=== PATIENT | female | born 1935 | race Caucasian/White ===

== ENCOUNTER 2019-10-22 11:49 | Inpatient (IN) | payer MEDICARE ==
[2019-10-22] MEDS ORDERED: Morphine 4 MG/ML VIAL ONE (12:09)
[2019-10-22 12:31] LABS: #Eosinphils 0.1 thou/uL (0.0-0.7); #Lymphocytes 0.6 thou/uL (1.20-3.40); #Monocytes 0.6 thou/uL (0.11-0.59); #Neutrophils 3.6 thou/uL (1.40-6.50); %Basophils 0.8 % (0.0-1.0); %Eosinophils 1.5 % (0.0-10.0); %Monocytes 12.6 % (0.0-10.0); %Neutrophils 73.1 % (42.0-75.0); Hemoglobin 9.2 g/dL (12.0-16.0); Mean Corpuscular HGB CONC 32.7 g/dL (32.0-36.0); Mean Corpuscular Hemoglobin 30.1 pg (27.0-31.0); Mean Corpuscular Volume 92.1 fL (78.0-98.0); Mean Platelet Volume 9.2 fL (7.4-10.4); Platelet Count 151 thou/uL (130-400); RBC Distribution Width 13.6 % (11.5-14.5); Red Blood Cell (RBC) Count 3.05 mill/uL (4.20-5.40); White Blood Cell (WBC) Count 4.9 thou/uL (4.8-10.8)
[2019-10-22 12:49] LABS: ALT (SGPT) 19 U/L (8-55); AST (SGOT) 20 U/L (5-34); Albumin 3.3 g/dL (3.4-4.8); Alkaline Phosphatase 75 U/L (40-110); Anion Gap 14 mmol/L (10-20); BUN (Urea Nitrogen) 37 mg/dL (9.8-20.1); Bilirubin, Total 0.4 mg/dL (0.2-1.2); Calc. Creatinine Clearance 0 mL/min (70-130); Carbon Dioxide 20 mmol/L (23-31); Chloride 110 mmol/L (98-107); Estimated GFR-MDRD 23; Globulin 2.6 g/dL (2.4-3.5); Glucose 163 mg/dL (83-110); Potassium 4.9 mmol/L (3.5-5.1); Protein, Total 5.9 g/dL (6.0-8.3); Sodium 139 mmol/L (136-145)
--- NOTE | 2019-10-22 13:13 | RAD ---
PORTABLE CHEST 1 VIEW: DATE: 10/22/2019. TIME: 12:19 p.m. HISTORY: Lower extremity pain and edema and shortness of breath. FINDINGS/IMPRESSION: The heart size is enlarged and the aorta is tortuous. No lobar consolidation, pneumothoraces, adalid pulmonary edema, or large effusions are seen. POS: OFF
[2019-10-22] MEDS ORDERED: Aspirin Chewable 81 MG TAB ONE (14:58)
[2019-10-22] MEDS ORDERED: Furosemide 40 MG/4 ML VIAL ONE (16:01)
[2019-10-22] MEDS ORDERED: Acetaminophen 650 MG Suppository PR PRN (17:06)
[2019-10-22] MEDS ORDERED: Calcium Carbonate 500 MG ChewTAB PO PRN (17:06)
--- NOTE | 2019-10-22 17:10 | RAD ---
XR Hip Rt 2-3 View INDICATION: Right hip pain COMPARISON: None FINDINGS: Bones: Bone details limited by the patient's body habitus. No definite acute fracture or subluxation is demonstrated. Hip joint: There is mild to moderate right hip osteoarthrosis. SI joints and symphysis pubis: Radiographically normal. Intrapelvic contents: Visualized bowel gas pattern is within normal limits. Surrounding soft tissues: Radiographically normal. IMPRESSION: 1. Limited exam. No definite acute fracture or subluxation.
[2019-10-22] MEDS ORDERED: Furosemide 100 MG in Sodium Chloride 0.9% 90 ML IVPB SCH (17:16)
[2019-10-22] MEDS ORDERED: Dextrose 50% Abboject 50 ML SYRINGE SLOW IVP PRN (17:16)
[2019-10-22] MEDS ORDERED: Dextrose 5% in Water 1,000 ML IV PRN (17:16)
[2019-10-22] MEDS ORDERED: HumaLOG 300 UNITS/3 ML VIAL SC PRN ×2 (17:16)
[2019-10-22 17:30] LABS: Troponin I 0.011 ng/mL (< 0.028)
--- NOTE | 2019-10-22 17:44 | PDOC.HHP ---
Hospitalist HPI - History of Present Illness Right hip pain History of Present Illness: The patient is a 84/F with PMH significant for HTN, DMII, HLD, CKD IV, morbid obesity presents for above complaint. The patient is [place], so the HPI was gathered primarily from the patient's son, Mehdi Carr. Reports that the patient has complaining of right hip pain for the past month, describes as aching, muscular pain, constant, reproducible with touch. Denies any trauma or fall. For this reason, she has been less mobile, spending majority of her time in a recliner. Also reports developing swelling to bilateral lower extremities for the past month. Reports significant weeping to bilateral extremities and development of erythematous lesions to both shins, denies pain, fever or chills. She has no other complaints at this time. The patient called EMS for her right hip pain. ED Course: EMS found patient with BP 236/106. Administered Nitro spray x 2 Nitro SL x 1 In the ER CXR no acute cardiopulmonary process BNP 123 Trop negative ASA 324 Morphine 4mg Lasix 40mg IVP Hospitalist ROS - Review of Systems Constitutional: denies: fever, chills, sweats, weakness, malaise, other ENT: denies: ear pain, ear discharge, nose pain, nose discharge, nose congestion , mouth pain, mouth swelling, throat pain, throat swelling, other Respiratory: denies: cough, dry, shortness of breath, hemoptysis, SOB with excertion, pleuritic pain, sputum, wheezing, other Cardiovascular: reports: edema. denies: chest pain, palpitations, paroxysmal noc. dyspnea Gastrointestinal: denies: nausea, vomiting, abdominal pain, diarrhea, constipation, melena, hematochezia, other Genitourinary: denies: dysuria, frequency, incontinence, hematuria, retention, other Skin: reports: rash, lesions (BLE) Hospitalist History - Past Medical History Source: patient, family Cardiac: reports: HTN, Hyperlipidemia Pulmonary: reports: no pertinent history HAND STRAIGHTENER: reports: no pertinent history Psych: reports: Depression Musculoskeletal: reports: Osteoarthritis Infectious Disease: reports: no pertinent history ENT: reports: no pertinent history Renal/: reports: no pertinent history Endocrine: reports: Diabetes - Past Surgical History Past Surgical History: reports: Cholecystectomy, Hysterectomy - Family History Family History: reports: cancer - Social History Smoking Status: Never smoker Alcohol: reports: None Drugs: reports: none Living Situation: With Family Occupation: retired, lives with son in trailer Activity level: uses cane/walker - Exam General Appearance: NAD, awake alert ENT - other findings: [place] Neck: no JVD, no lymphadenopathy Heart: diminshed peripheral pulses Heart - other findings: distant heart sounds Respiratory: no wheezes, no rales, no ronchi, no tachypnea Respiratory - other findings: diminished Gastrointestinal: soft, non-tender, non-distended, normal bowel sounds, no guarding, no rigidity Extremities - other findings: 4+ BLE; Right leg > left leg Skin - other findings: 8cm x 12 cm raised, erythematous scaling lesion, non tender, no fluctuance Psychiatric: normal affect, A&O x 3 Hospitalist Results - Labs Result Diagrams: 10/22/19 12:19 10/22/19 12:02 Lab results: WBC 4.9 thou/uL (4.8-10.8) 10/22/19 12:19 Hgb 9.2 g/dL (12.0-16.0) L 10/22/19 12:19 Hct 28.0 % (36.0-47.0) L 10/22/19 12:19 MCV 92.1 fL (78.0-98.0) 10/22/19 12:19 Plt Count 151 thou/uL (130-400) 10/22/19 12:19 Neutrophils % 73.1 % (42.0-75.0) 10/22/19 12:19 Sodium 139 mmol/L (136-145) 10/22/19 12:02 Potassium 4.9 mmol/L (3.5-5.1) 10/22/19 12:02 Chloride 110 mmol/L (98-107) H 10/22/19 12:02 Carbon Dioxide 20 mmol/L (23-31) L 10/22/19 12:02 BUN 37 mg/dL (9.8-20.1) H 10/22/19 12:02 Creatinine 2.07 mg/dL (0.6-1.1) H 10/22/19 12:02 Glucose 163 mg/dL (83-110) H 10/22/19 12:02 Calcium 8.0 mg/dL (7.8-10.44) 10/22/19 12:02 Total Bilirubin 0.4 mg/dL (0.2-1.2) 10/22/19 12:02 AST 20 U/L (5-34) 10/22/19 12:02 ALT 19 U/L (8-55) 10/22/19 12:02 Alkaline Phosphatase 75 U/L (40-110) 10/22/19 12:02 Troponin I 0.011 ng/mL (< 0.028) 10/22/19 16:56 B-Natriuretic Peptide 123.0 pg/mL (0-100) H 10/22/19 12:02 Serum Total Protein 5.9 g/dL (6.0-8.3) L 10/22/19 12:02 Albumin 3.3 g/dL (3.4-4.8) L 10/22/19 12:02 Laboratory Tests 10/22/19 10/22/19 10/22/19 12:02 12:02 12:04 Magnesium 1.7 Troponin I 0.011 B-Natriuretic Peptide 123.0 H TSH 3rd Generation 10/22/19 10/22/19 16:56 16:56 Magnesium Troponin I 0.011 B-Natriuretic Peptide TSH 3rd Generation 2.6814 - Radiology Interpretation Chest x-ray Status: report reviewed by nv Hospitalist H&P A/P - Plan Plan: Impression Acute CHF exacerbation, suspected diastolic dysfunction Bilateral LE edema Right Hip Pain Bilateral LE wounds, likely secondary to venous stasis HTN DMII HLD Morbid obesity CKD IV Plan: monitoring coordinator Delta trop Lasix drip Echocardiogram Consult cardiology, cardiac rehab, wound care FR 1500mls, Strict I&Os, daily weights, elevate feet Venous US Right hip Xray Sliding scale, AC/HS DVT/GI prophalaxis renal dose repeat labs in am Restart home meds when reconciled, hold terazosin, HCTZ and amlodipine. Full code Mehdi KAUFFMAN,
[2019-10-22] MEDS ORDERED: Enoxaparin Sodium 30 MG/0.3 ML SYRINGE SC SCH (21:00)
[2019-10-22] MEDS ORDERED: Lisinopril 10 MG TAB PO SCH (21:00)
[2019-10-22] MEDS ORDERED: Atenolol 50 MG TAB PO SCH (21:00)
[2019-10-22] MEDS ORDERED: Aspirin 81 mg Enteric Coated Tablet PO SCH (21:00)
[2019-10-22] MEDS: Heparin 5,000 UNITS/ML VIAL SC SCH (21:04)
[2019-10-22] MEDS: Famotidine 20 MG TAB PO SCH (21:05)
[2019-10-22] MEDS: Rosuvastatin 20 MG TAB PO SCH (21:05)
[2019-10-22] MEDS: Lisinopril 5 MG TAB PO SCH (21:05)
--- NOTE | 2019-10-22 22:35 | PRG ---
DATE OF SERVICE: Patient was seen and examined. Patient is an 84-year-old female with hypertension; diabetes mellitus, type 2; hyperlipidemia; and CKD, presented to the emergency room with right hip pain. She also complains of shortness of breath that is progressively getting worse over the last 1 to 2 weeks. There is significant lower extremity edema that has worsened recently. She also had some weeping from bilateral lower extremity lesions. No fever or chills reported. Her blood pressure by EMS was 236/106. Her workup in the emergency room was consistent with congestive heart failure exacerbation. Vital signs were reviewed. She received IV diuretics in the emergency room. On examination, patient has significant bilateral lower extremity edema. There are scattered rhonchi with diminished air entry at bilateral bases. S1, S2 were present. Labs were reviewed. Troponins were negative. BNP was 123. TSH was 2.6. I reviewed the EKG and chest x-ray. Patient will be monitored on the telemetry unit. We will start her on gentle IV diuretics. Due to significant CKD, we will start her on Lasix drip. DVT will be ruled out. Wound Care will be consulted. Right hip x-ray has been negative. We will recheck electrolytes in the a.m. We will keep her on fluid restriction. I agree with the note by nurse practitioner, Aaron Silverio. I agree with assessment and plan as outlined by the nurse practitioner. Cardiology will be consulted. Echocardiogram has been ordered. Job ID: [id number]
--- NOTE | 2019-10-22 23:18 | ULT ---
BILATERAL LOWER EXTREMITY VENOUS DOPPLER EVALUATION PROVIDED CLINICAL HISTORY: Bilateral lower extremity edema with bilateral lower extremity pain, right greater than left. There i s a rash on the lateral aspect of the right calf. TECHNIQUE: Grayscale, color doppler and spectral doppler images were obtained of the common femoral , femoral, profunda femoral, popliteal and posterior tibial veins of both lower extremities. Image detail is heavily limited by the patient's body habitus. FINDINGS: There is normal compression, flow and augmentation seen with the deep venous structures within both l ower extremities. IMPRESSION: No sonographic evidence for lower extremity deep venous thrombosis within the limitations of this exa m.
[2019-10-23 05:03] LABS: #Eosinphils 0.1 thou/uL (0.0-0.7); #Lymphocytes 0.6 thou/uL (1.20-3.40); %Basophils 0.4 % (0.0-1.0); %Eosinophils 0.9 % (0.0-10.0); %Lymphocytes 8.4 % (21.0-51.0); %Monocytes 14.8 % (0.0-10.0); %Neutrophils 75.5 % (42.0-75.0); Mean Corpuscular Hemoglobin 30.2 pg (27.0-31.0); Mean Corpuscular Volume 91.6 fL (78.0-98.0); Mean Platelet Volume 8.6 fL (7.4-10.4); Platelet Count 141 thou/uL (130-400); RBC Distribution Width 13.6 % (11.5-14.5); Red Blood Cell (RBC) Count 3.31 mill/uL (4.20-5.40); White Blood Cell (WBC) Count 6.7 thou/uL (4.8-10.8)
[2019-10-23 05:26] LABS: Anion Gap 14 mmol/L (10-20); BUN (Urea Nitrogen) 36 mg/dL (9.8-20.1); Calc. Creatinine Clearance 39 mL/min (70-130); Calcium 8.7 mg/dL (7.8-10.44); Carbon Dioxide 21 mmol/L (23-31); Chloride 108 mmol/L (98-107); Estimated GFR-MDRD 25; Glucose 118 mg/dL (83-110); Magnesium 1.9 mg/dL (1.6-2.6); Potassium 4.8 mmol/L (3.5-5.1); Sodium 138 mmol/L (136-145)
[2019-10-23] MEDS ORDERED: Carvedilol 6.25 MG TAB PO SCH (08:00)
[2019-10-23] MEDS: glipiZIDE 5 MG TAB PO SCH (08:43)
[2019-10-23] MEDS: Citalopram 20 MG TAB PO SCH (08:44)
[2019-10-23] MEDS: Aspirin 81 mg Enteric Coated Tablet PO SCH (08:44)
[2019-10-23] MEDS: Lisinopril 5 MG TAB PO SCH (08:44)
[2019-10-23] MEDS: Heparin 5,000 UNITS/ML VIAL SC SCH ×2 (08:44→19:24)
[2019-10-23] MEDS ORDERED: Lisinopril 10 MG TAB PO SCH (12:30)
--- NOTE | 2019-10-23 15:23 | PDOC.HOSPP ---
- Subjective Encounter Date: 10/23/19 Encounter Time: 08:30 Subjective: Patient seen and examined for CHF. SOB slightly better. No CP. No new complaints. No overnight events - Objective Vital Signs & Weight: Vital Signs (12 hours) Temp Pulse Resp BP Pulse Ox 10/23/19 13:01 98.9 F 75 18 194/80 H 96 10/23/19 10:15 149/70 H 10/23/19 08:20 98.8 F 74 18 182/76 H 96 10/23/19 08:00 96 Weight Admit Weight 249 lb Weight 242 lb 12.8 oz I&O: 10/22/19 10/23/19 10/24/19 06:59 06:59 06:59 Output Total 300 Balance -300 Result Diagrams: 10/23/19 04:29 10/23/19 04:29 Additional Labs: Accuchecks 10/23/19 10/22/19 06:35 21:26 POC Glucose 126 H 149 H Radiology Reviewed by me: Yes (CXR - no infiltrate) EKG Reviewed by me: Yes (Tele Sr) Hospitalist ROS - Review of Systems Cardiovascular: denies: chest pain, palpitations, orthopnea, paroxysmal noc. dyspnea, edema, light headedness, other Gastrointestinal: denies: nausea, vomiting, abdominal pain, diarrhea, constipation, melena, hematochezia, other - Medication Medications: Active Medications Generic Name Dose Route Start Last Admin Trade Name Freq PRN Reason Stop Dose Admin Aspirin 81 mg 10/23/19 09:00 10/23/19 08:44 Ecotrin PO 81 mg DAILY JUAN ANTONIO Administration Citalopram Hydrobromide 40 mg 10/23/19 09:00 10/23/19 08:44 Celexa PO 40 mg DAILY JUAN ANTONIO Administration Famotidine 20 mg 10/22/19 21:00 10/22/19 21:05 Pepcid PO 20 mg QPM JUAN ANTONIO Administration Glipizide 5 mg 10/23/19 07:30 10/23/19 08:43 Glucotrol PO 5 mg DAILY-AC JUAN ANTONIO Administration Heparin Sodium (Porcine) 5,000 units 10/22/19 21:00 10/23/19 08:44 Heparin SC 5,000 units BID JUAN ANTONIO Administration Furosemide 100 mg/ Sodium 100 mls @ 3 mls/hr 10/22/19 17:16 10/23/19 00:05 Chloride IVPB 100 mls INF JUAN ANTONIO Administration 3 MG/HR Rosuvastatin Calcium 20 mg 10/22/19 21:00 10/22/19 21:05 Crestor PO 20 mg HS JUAN ANTONIO Administration - Exam General Appearance: NAD Neck: supple, no JVD Heart: RRR, no gallops, no rubs, normal peripheral pulses Respiratory: no wheezes, normal chest expansion, rales (at bases), rhonchi Gastrointestinal: non-tender, non-distended, no guarding, no rigidity Extremities: 2+ LE edema Neurological: no new deficit Psychiatric: normal affect, A&O x 3 Hosp A/P - Plan DVT proph w/heparin Acute diastolic CHF exacerbation Bilateral LE edema/Venous stasis Right Hip Pain - no fracture Bilateral LE wounds, likely secondary to venous stasis HTN - uncontrolled DM2 HLD Morbid obesity BMI 40.4 CKD IV Plan: Cont Lasix drip Increase Coreg to TID Increase Lisinopril 10mg BID Echocardiogram reviewed Doppler negative Cont fluid restriction Sliding scale, AC/HS AM labs
[2019-10-23] MEDS: Carvedilol 6.25 MG TAB PO SCH ×2 (15:39→19:23)
[2019-10-23] MEDS ORDERED: cloNIDine 0.1 MG TAB PO PRN (15:48)
--- NOTE | 2019-10-23 15:49 | CON ---
DATE OF CONSULTATION: 10/23/2019 REASON FOR CONSULTATION: Hypertension and history of heart failure. HISTORY OF PRESENT ILLNESS: Ms. Carr is a pleasant 84-year-old white female, who comes to the hospital for hip pain. She was at home, having a lot of hip pain. She noticed swelling on bilateral lower extremities, slowly getting worse in the past month with weeping of the skin. She was brought in for worsening pain and edema. She was found to be, what appears to be, heart failure and blood pressure was 236/106. They gave her one sublingual nitroglycerin and brought her in. Currently, her blood pressure is much better in the 140s. She was started on the Lasix drip for possible heart failure. Cardiology is being consulted for further evaluation and care. Ms. Carr tells me she has never had any problems with her heart. She has never seen a sumatra opener before. PAST MEDICAL HISTORY: 1. Hypertension. 2. Hyperlipidemia. 3. Depression. 4. Osteoarthritis. 5. Diabetes. PAST SURGICAL HISTORY: 1. Cholecystectomy. 2. Hysterectomy. FAMILY HISTORY: No early coronary artery disease. SOCIAL HISTORY: No alcohol, tobacco, or drugs. REVIEW OF SYSTEMS: A 12-point review of systems was done and was all negative unless stated in the history of present illness. OUTPATIENT MEDICATIONS: 1. Celexa. 2. Atenolol 100 mg a day. 3. Amlodipine 5 mg a day. 4. Glipizide 10 mg b.i.d. 5. Terazosin 10 mg q.a.m. 6. Rosuvastatin 20 mg q.a.m. 7. Lisinopril/hydrochlorothiazide 20/12.5 mg b.i.d. ALLERGIES: NO KNOWN DRUG ALLERGIES. PHYSICAL EXAMINATION: VITAL SIGNS: Temperature 98.9, pulse 75, respiratory rate 18, saturation 96% on room air, and blood pressure 194/80, but has been as low as 149/70. GENERAL: Awake, alert, oriented to person, has difficulty with place and cannot do time. In no distress. HEENT: Normocephalic, atraumatic. NECK: Supple. LUNGS: Clear. CARDIOVASCULAR: S1 and S2. There is a grade 3/6 systolic murmur at the right upper sternal border. Outflow tract murmur. ABDOMEN: Soft. Positive bowel sounds. EXTREMITIES: 2+ edema. There is erythema on the shins, but more like scabs rather than cellulitis. LABORATORY DATA: Laboratory work was reviewed. White count of 6.7, hemoglobin 10, hematocrit of 30, platelet count of 141. Chemistry with a BUN of 36, creatinine 1.94, this is actually down from 2.07, GFR of 25. Troponin was negative. TSH was normal. Lower extremity venous ultrasound showed no evidence of DVTs. Chest x-ray, enlarged heart with torturous aorta, but no evidence of CHF. Echocardiogram was reviewed. Normal LV function with diastolic heart failure, grade 1/3. Mild AI. ASSESSMENT AND PLAN: 1. Acute on chronic diastolic heart failure. 2. Bilateral lower extremity edema, most likely some level of RV dysfunction, likely has sleep apnea given her weight. 3. Hypertensive urgency, likely most of her blood pressure issues are related to her pain as when her pain level goes up, her blood pressure goes up. I agree with continuing home regimen and up titrating as needed. PLAN: 1. Up titrate home medications as needed. 2. We will switch Lasix drip to more twice daily dosing at 20 mg IV twice a day. I do not think she needs too aggressive diuresis at this time. 3. Continue to try to control blood pressure with p.r.n.'s if needed. Thank you for letting us to participate in the care of your patient. We will follow. Job ID: [id number]
[2019-10-23] MEDS ORDERED: Terazosin HCl 5 MG CAP PO SCH (16:00)
[2019-10-23] MEDS: Famotidine 20 MG TAB PO SCH (19:23)
[2019-10-23] MEDS: Rosuvastatin 20 MG TAB PO SCH (19:23)
[2019-10-23] MEDS: Lisinopril 10 MG TAB PO SCH (19:24)
[2019-10-24 04:54] LABS: Anion Gap 13 mmol/L (10-20); BUN (Urea Nitrogen) 40 mg/dL (9.8-20.1); Calc. Creatinine Clearance 35 mL/min (70-130); Calcium 8.8 mg/dL (7.8-10.44); Carbon Dioxide 20 mmol/L (23-31); Chloride 108 mmol/L (98-107); Estimated GFR-MDRD 23; Glucose 126 mg/dL (83-110); Potassium 4.3 mmol/L (3.5-5.1); Sodium 137 mmol/L (136-145)
[2019-10-24] MEDS: Furosemide 20 MG/2 ML VIAL SLOW IVP SCH ×2 (05:16→14:27)
[2019-10-24] MEDS: Carvedilol 6.25 MG TAB PO SCH ×3 (08:26→20:31)
[2019-10-24] MEDS: glipiZIDE 5 MG TAB PO SCH (08:26)
[2019-10-24] MEDS: Aspirin 81 mg Enteric Coated Tablet PO SCH (08:26)
[2019-10-24] MEDS: Lisinopril 10 MG TAB PO SCH ×2 (08:27→20:31)
[2019-10-24] MEDS: Citalopram 20 MG TAB PO SCH (08:27)
[2019-10-24] MEDS: hydrALAZINE 25 MG TAB PO SCH ×3 (08:28→20:31)
[2019-10-24] MEDS: Heparin 5,000 UNITS/ML VIAL SC SCH ×3 (08:28→20:33)
[2019-10-24] MEDS ORDERED: NIFEdipine XL 30 MG TAB PO SCH (09:00)
--- NOTE | 2019-10-24 11:45 | PDOC.HOSPP ---
- Subjective Encounter Date: 10/24/19 Encounter Time: 07:30 Subjective: no sob or chest pain, feels better. Has not ambulated. - Objective Vital Signs & Weight: Vital Signs (12 hours) Temp Pulse Resp BP BP Pulse Ox 10/24/19 08:28 78 10/24/19 08:27 78 149/68 H 10/24/19 08:26 149/68 H 10/24/19 07:42 99.9 F H 78 16 149/68 H 94 L 10/24/19 05:17 71 139/62 10/24/19 04:29 193/77 H 10/24/19 03:12 98.8 F 80 18 195/81 H 94 L Weight Admit Weight 249 lb Weight 245 lb 8 oz I&O: 10/23/19 10/24/19 10/25/19 06:59 06:59 06:59 Intake Total 1107 Output Total 2550 Balance -1443 Result Diagrams: 10/23/19 04:29 10/24/19 03:53 Additional Labs: Accuchecks 10/24/19 10/24/19 10/23/19 10:44 05:35 20:11 POC Glucose 165 H 138 H 137 H 10/23/19 10/23/19 16:54 10:35 POC Glucose 138 H 172 H Hospitalist ROS - Medication Medications: Active Medications Generic Name Dose Route Start Last Admin Trade Name Freq PRN Reason Stop Dose Admin Aspirin 81 mg 10/23/19 09:00 10/24/19 08:26 Ecotrin PO 81 mg DAILY JUAN ANTONIO Administration Carvedilol 12.5 mg 10/23/19 15:00 10/24/19 08:26 Coreg PO 12.5 mg TID JUAN ANTONIO Administration Citalopram Hydrobromide 40 mg 10/23/19 09:00 10/24/19 08:27 Celexa PO 40 mg DAILY JUAN ANTONIO Administration Clonidine 0.1 mg 10/23/19 15:48 10/24/19 04:29 Catapres PO 10/24/19 15:49 0.1 mg Q4H PRN Administration SBP Greater Than 180 Famotidine 20 mg 10/22/19 21:00 10/23/19 19:23 Pepcid PO 20 mg QPM JUAN ANTONIO Administration Furosemide 20 mg 10/24/19 06:00 10/24/19 05:16 Lasix SLOW IVP 20 mg 0600,1400 JUAN ANTONIO Administration Glipizide 5 mg 10/23/19 07:30 10/24/19 08:26 Glucotrol PO 5 mg DAILY-AC JUAN ANTONIO Administration Heparin Sodium (Porcine) 5,000 units 10/23/19 21:00 10/24/19 08:28 Heparin SC 5,000 units TID JUAN ANTONIO Administration Hydralazine HCl 25 mg 10/24/19 09:00 10/24/19 08:28 Apresoline PO 25 mg TID JUAN ANTONIO Administration Lisinopril 10 mg 10/23/19 21:00 10/24/19 08:27 Zestril PO 10 mg BID JUAN ANTONIO Administration Nifedipine 30 mg 10/24/19 09:00 10/24/19 08:27 Procardia Xl PO 30 mg DAILY JUAN ANTONIO Administration Rosuvastatin Calcium 20 mg 10/22/19 21:00 10/23/19 19:23 Crestor PO 20 mg HS JUAN ANTONIO Administration - Exam General Appearance: awake alert Eye: PERRL, anicteric sclera ENT: no oropharyngeal lesions, moist mucosa Neck: supple, no JVD Heart: RRR, no murmur Respiratory: no wheezes, no rales Gastrointestinal: soft, non-tender, non-distended, normal bowel sounds Extremities: no cyanosis, no edema Neurological: cranial nerve grossly intact, no focal deficits Psychiatric: normal affect, A&O x 3 Hosp A/P (1) Acute exacerbation of CHF (congestive heart failure) Code(s): I50.9 - HEART FAILURE, UNSPECIFIED Status: Acute Qualifiers: Heart failure type: diastolic Qualified Code(s): I50.33 - Acute on chronic diastolic (congestive) heart failure (2) Hypertension, uncontrolled Code(s): I10 - ESSENTIAL (PRIMARY) HYPERTENSION Status: Acute (3) PARESH (acute kidney injury) Code(s): N17.9 - ACUTE KIDNEY FAILURE, UNSPECIFIED Status: Acute (4) DM type 2 (diabetes mellitus, type 2) Status: Chronic Qualifiers: Diabetes mellitus moth exterminator insulin use: without moth exterminator use Diabetes mellitus complication status: with kidney complications Diabetes mellitus complication detail: with chronic kidney disease Chronic kidney disease stage : stage 2 (mild) Qualified Code(s): E11.22 - Type 2 diabetes mellitus with diabetic chronic kidney disease; N18.2 - Chronic kidney disease, stage 2 (mild) (5) Obesity Code(s): E66.9 - OBESITY, UNSPECIFIED Status: Chronic Qualifiers: Obesity classification: adult class 3 (BMI >= 40) Body mass index: BMI 40.0 -44.9 (6) Dyslipidemia Code(s): E78.5 - HYPERLIPIDEMIA, UNSPECIFIED Status: Chronic (7) Chronic anemia Code(s): D64.9 - ANEMIA, UNSPECIFIED Status: Chronic (8) Osteoarthritis Code(s): M19.90 - UNSPECIFIED OSTEOARTHRITIS, UNSPECIFIED SITE Status: Chronic Qualifiers: Osteoarthritis location: multiple joints Osteoarthritis type: primary Qualified Code(s): M15.0 - Primary generalized (osteo)arthritis - Plan is on lasix 20mg at 6am and 2 pm add procardia xl and hydralazine tid low dose to coreg tid, lisinopril for htn which is slowly getting controlled. continue asp, crestor, glipizide and crestor PT to mobilize as tolerated has underlying dementia as well. B/l leg wounds/blisters are better with decreasing edema. dc plan in 36hrs, will likely need swing bed, she lives with son in a trailer
[2019-10-24] MEDS: cefTRIAXone\\ROCEPHIN 1 GM in Sodium Chloride 0.9% 100 ML IVPB SCH (14:24)
--- NOTE | 2019-10-24 16:22 | PDOC.CPN ---
- Subjective Date: 10/24/19 Time: 12:00 Interval history: She is doing better. Swelling improving. - Review of Systems General: denies: fever/chills, weight/appetite/sleep changes, night sweats, fatigue Respiratory: denies: cough, congestion, shortness of breath, exercise intolerance Cardiovascular: reports: edema. denies: chest pain, palpitation, paroxysmal nocturnal dyspnea, orthopnea Gastrointestinal: denies: nausea, vomiting, diarrhea, constipation, abd pain, GI bleeding Musculoskeletal: denies: pain, tenderness, stiffness, swelling, arthritis/ arthralgias Neurological: denies: numbness, syncope, seizure, weakness - Objective Allergies/Adverse Reactions: Allergies Allergy/AdvReac Type Severity Reaction Status Date / Time No Known Allergies Allergy Unverified 10/22/19 17:12 Visit Medications: Current Medications Acetaminophen (Tylenol) 650 mg PO Q4H PRN PRN Reason: Headache/Fever/Mild Pain (1-3) Acetaminophen (Tylenol) 650 mg ID Q4H PRN PRN Reason: Headache/Fever/Mild Pain (1-3) Aspirin (Ecotrin) 81 mg PO DAILY [facility] Last Admin: 10/24/19 08:26 Dose: 81 mg Calcium Carbonate (Tums) 1,000 mg PO Q4H PRN PRN Reason: Heartburn or Indigestion Carvedilol (Coreg) 12.5 mg PO TID [facility] Last Admin: 10/24/19 14:26 Dose: 12.5 mg Citalopram Hydrobromide (Celexa) 40 mg PO DAILY [facility] Last Admin: 10/24/19 08:27 Dose: 40 mg Dextrose/Water (Dextrose 50%) 25 gm SLOW IVP PRN PRN PRN Reason: Hypoglycemia Famotidine (Pepcid) 20 mg PO QPM [facility] Last Admin: 10/23/19 19:23 Dose: 20 mg Furosemide (Lasix) 20 mg SLOW IVP 0600,1400 [facility] Last Admin: 10/24/19 14:27 Dose: 20 mg Glipizide (Glucotrol) 5 mg PO DAILY-AC [facility] Last Admin: 10/24/19 08:26 Dose: 5 mg Glucagon (Glucagon) 1 mg IM PRN PRN PRN Reason: Hypoglycemia Heparin Sodium (Porcine) (Heparin) 5,000 units SC TID [facility] Last Admin: 10/24/19 14:25 Dose: 5,000 units Hydralazine HCl (Apresoline) 25 mg PO TID [facility] Last Admin: 10/24/19 14:26 Dose: 25 mg Dextrose/Water (D5w) 1,000 mls @ 0 mls/hr IV .Q0M PRN PRN Reason: Hypoglycemia Ceftriaxone Sodium 1 gm/ (Sodium Chloride) 100 mls @ 200 mls/hr IVPB Q24HR [facility] Last Admin: 10/24/19 14:24 Dose: 100 mls Insulin Human Lispro (Humalog) 0 units SC .MILD SLIDING SCALE PRN PRN Reason: Mild Correctional Scale Insulin Human Lispro (Humalog) 0 units SC .BEDTIME SLIDING SC PRN PRN Reason: Bedtime Correctional Scale Lisinopril (Zestril) 10 mg PO BID [facility] Last Admin: 10/24/19 08:27 Dose: 10 mg Nifedipine (Procardia Xl) 30 mg PO DAILY [facility] Last Admin: 10/24/19 08:27 Dose: 30 mg Rosuvastatin Calcium (Crestor) 20 mg PO HS [facility] Last Admin: 10/23/19 19:23 Dose: 20 mg Sodium Chloride (Flush - Normal Saline) 10 ml IVF Q12HR [facility] Sodium Chloride (Flush - Normal Saline) 10 ml IVF PRN PRN PRN Reason: Saline Flush Vital Signs & Weight: Vital Signs Temp Pulse Resp BP BP BP Pulse Ox 10/24/19 14:26 73 149/68 H 10/24/19 13:20 149/67 H 10/24/19 12:00 98.7 F 73 16 177/76 H 96 10/24/19 08:28 78 10/24/19 08:27 78 149/68 H 10/24/19 08:26 149/68 H 10/24/19 07:42 99.9 F H 78 16 149/68 H 94 L 10/24/19 05:17 71 139/62 10/24/19 04:29 193/77 H Admit Weight 249 lb Weight 245 lb 8 oz - Physical Exam General: appears well HEENT: mucus membranes moist Neck: supple neck Cardiac: regular rate and rhythm Lungs: normal breath sounds Neuro: grossly intact Abdomen: active bowel sounds Extremities: 1+ LE edema Skin: clear Musculoskeletal: no pain - Labs Result Diagrams: 10/23/19 04:29 10/24/19 03:53 Troponin/CKMB Troponin I 0.011 ng/mL (< 0.028) 10/22/19 16:56 - Telemetry Sinus rhythms and dysrhythmias: sinus rhythm - Assessment/Plan Assessment/Plan: 1. Acute on chronic diastolic CHF 2. Bilateral LE edema with skin lacerations 3. HTN 4. Severe hip pain. PLAN: - Continue gentle diuresis. - Creatinine stable at this time. If it bumps tomorrow would stop diuresis. - Will increase nifedipine to 60 mg daily for better BP control.
[2019-10-24 16:35] LABS: Bacteria/HPF 4+ HPF (None Seen); Bilirubin Negative (Negative); Blood, Urine 1+ (Negative); Clarity Turbid (Clear); Glucose, Urine (Dipstick) Normal (Negative); Leukocyte 500 Leu/uL (Negative); Nitrite Negative (Negative); Protein, Urine (Dipstick) 50 mg/dL (Neg-Trace); Squamous Epithelial 0-3 HPF (0-3); Urobilinogen Normal mg/dL (Less than 2); WBC/HPF Greater than 50 HPF (0-3)
[2019-10-24 16:40] LABS: Urine Culture Reflex Yes Yes
[2019-10-24] MEDS ORDERED: ALPRAZolam 1 MG TAB PO SCH (17:45)
[2019-10-24] MEDS: Famotidine 20 MG TAB PO SCH (20:31)
[2019-10-24] MEDS: Rosuvastatin 20 MG TAB PO SCH (20:32)
[2019-10-24] MEDS ORDERED: Terazosin HCl 5 MG CAP PO SCH (21:00)
[2019-10-25] MEDS ORDERED: hydrALAZINE 20 MG/ML VIAL SLOW IVP PRN (00:32)
[2019-10-25 04:57] LABS: Anion Gap 16 mmol/L (10-20); BUN (Urea Nitrogen) 45 mg/dL (9.8-20.1); Calc. Creatinine Clearance 31 mL/min (70-130); Calcium 8.3 mg/dL (7.8-10.44); Carbon Dioxide 18 mmol/L (23-31); Chloride 104 mmol/L (98-107); Estimated GFR-MDRD 19; Glucose 122 mg/dL (83-110); Potassium 3.7 mmol/L (3.5-5.1); Sodium 134 mmol/L (136-145)
[2019-10-25] MEDS: Furosemide 20 MG/2 ML VIAL SLOW IVP SCH (05:26)
[2019-10-25] MEDS: Albumin 25% 25 GM/100 ML BOT IVPB SCH ×3 (08:40→21:22)
[2019-10-25] MEDS: Heparin 5,000 UNITS/ML VIAL SC SCH ×3 (08:40→20:03)
--- NOTE | 2019-10-25 11:16 | PDOC.HOSPP ---
- Subjective Encounter Date: 10/25/19 Encounter Time: 08:00 Subjective: still waking up, she got xanax yesterday and has been oversleeping now. Xanax helped her sleep and stay calm overnight. Son at bedside. - Objective Vital Signs & Weight: Vital Signs (12 hours) Temp Pulse Resp BP Pulse Ox 10/25/19 07:32 101.5 F H 82 20 155/70 H 92 L 10/25/19 05:24 99 F 82 16 146/66 H 96 10/25/19 01:47 89 146/65 H 10/25/19 00:45 88 Weight Admit Weight 249 lb Weight 244 lb I&O: 10/24/19 10/25/19 10/26/19 06:59 06:59 06:59 Intake Total 1107 1360 Output Total 2550 3200 Balance -1443 -1840 Result Diagrams: 10/23/19 04:29 10/25/19 04:03 Additional Labs: Accuchecks 10/25/19 10/24/19 10/24/19 06:26 20:23 16:31 POC Glucose 128 H 144 H 156 H 10/24/19 10:44 POC Glucose 165 H Hospitalist ROS - Medication Medications: Active Medications Generic Name Dose Route Start Last Admin Trade Name Freq PRN Reason Stop Dose Admin Acetaminophen 650 mg 10/22/19 17:06 10/25/19 08:51 Tylenol DE 650 mg Q4H PRN Administration Headache/Fever/Mild Pain (1-3) Albumin Human 25 gm 10/25/19 09:00 10/25/19 08:40 Albumin 25% IVPB 10/26/19 03:01 25 gm Q6H JUAN ANTONIO Administration Aspirin 81 mg 10/23/19 09:00 10/24/19 08:26 Ecotrin PO 81 mg DAILY JUAN ANTONIO Administration Carvedilol 12.5 mg 10/23/19 15:00 10/24/19 20:31 Coreg PO 12.5 mg TID JUAN ANTONIO Administration Citalopram Hydrobromide 40 mg 10/23/19 09:00 10/24/19 08:27 Celexa PO 40 mg DAILY JUAN ANTONIO Administration Famotidine 20 mg 10/22/19 21:00 10/24/19 20:31 Pepcid PO 20 mg QPM JUAN ANTONIO Administration Furosemide 20 mg 10/24/19 06:00 10/25/19 05:26 Lasix SLOW IVP 20 mg 0600,1400 JUAN ANTONIO Administration Glipizide 5 mg 10/23/19 07:30 10/24/19 08:26 Glucotrol PO 5 mg DAILY-AC JUAN ANTONIO Administration Heparin Sodium (Porcine) 5,000 units 10/23/19 21:00 10/25/19 08:40 Heparin SC 5,000 units TID JUAN ANTONIO Administration Hydralazine HCl 25 mg 10/24/19 09:00 10/24/19 20:31 Apresoline PO 25 mg TID JUAN ANTONIO Administration Hydralazine HCl 10 mg 10/25/19 00:32 10/25/19 00:45 Apresoline SLOW IVP 10 mg Q4H PRN Administration SBP > 180 and HR < 70 Ceftriaxone Sodium 1 gm/ 100 mls @ 200 mls/hr 10/24/19 15:00 10/24/19 14:24 Sodium Chloride IVPB 100 mls Q24HR JUAN ANTONIO Administration Lisinopril 10 mg 10/23/19 21:00 10/24/19 20:31 Zestril PO 10 mg BID JUAN ANTONIO Administration Rosuvastatin Calcium 20 mg 10/22/19 21:00 10/24/19 20:32 Crestor PO 20 mg HS JUAN ANTONIO Administration Sodium Chloride 10 ml 10/24/19 21:00 10/24/19 20:32 Flush - Normal Saline IVF 10 ml Q12HR JUAN ANTONIO Administration - Exam General Appearance: awake alert Eye: PERRL, anicteric sclera ENT: no oropharyngeal lesions, dry oral mucosa Neck: supple, no JVD Heart: RRR, no murmur Respiratory: no wheezes, no rales, rhonchi Gastrointestinal: soft, non-tender, non-distended, normal bowel sounds Extremities: no cyanosis, 1+ LE edema Neurological: cranial nerve grossly intact, no focal deficits Hosp A/P (1) Acute exacerbation of CHF (congestive heart failure) Code(s): I50.9 - HEART FAILURE, UNSPECIFIED Status: Acute Qualifiers: Heart failure type: diastolic Qualified Code(s): I50.33 - Acute on chronic diastolic (congestive) heart failure (2) Hypertension, uncontrolled Code(s): I10 - ESSENTIAL (PRIMARY) HYPERTENSION Status: Acute (3) PARESH (acute kidney injury) Code(s): N17.9 - ACUTE KIDNEY FAILURE, UNSPECIFIED Status: Acute (4) DM type 2 (diabetes mellitus, type 2) Status: Chronic Qualifiers: Diabetes 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: without nursing home use Diabetes mellitus complication status: with kidney complications Diabetes mellitus complication detail: with chronic kidney disease Chronic kidney disease stage : stage 2 (mild) Qualified Code(s): E11.22 - Type 2 diabetes mellitus with diabetic chronic kidney disease; N18.2 - Chronic kidney disease, stage 2 (mild) (5) Obesity Code(s): E66.9 - OBESITY, UNSPECIFIED Status: Chronic Qualifiers: Obesity classification: adult class 3 (BMI >= 40) Body mass index: BMI 40.0 -44.9 (6) Dyslipidemia Code(s): E78.5 - HYPERLIPIDEMIA, UNSPECIFIED Status: Chronic (7) Chronic anemia Code(s): D64.9 - ANEMIA, UNSPECIFIED Status: Chronic (8) Osteoarthritis Code(s): M19.90 - UNSPECIFIED OSTEOARTHRITIS, UNSPECIFIED SITE Status: Chronic Qualifiers: Osteoarthritis location: multiple joints Osteoarthritis type: primary Qualified Code(s): M15.0 - Primary generalized (osteo)arthritis - Plan will change lasix 20mg to po at 6am and 2 pm on procardia xl and hydralazine tid, coreg tid, lisinopril for htn which is slowly getting controlled. continue asp, crestor, glipizide and crestor PT to mobilize as tolerated has underlying dementia as well. Renal function is steadily increasing, will evaluate pt, albumin infusions B/l leg wounds/blisters are better with decreasing edema. d/w son at bedsided, will likely need swing bed, she lives with another son in a trailer in [place] ([place]). Transfer pt to medical floor, remove woodruff and telemetry to help her stay calm. Revisted code status with son, he wants her to be full code.
[2019-10-25] MEDS: Carvedilol 6.25 MG TAB PO SCH ×3 (11:57→20:04)
[2019-10-25] MEDS: hydrALAZINE 25 MG TAB PO SCH ×3 (11:58→20:05)
[2019-10-25] MEDS: glipiZIDE 5 MG TAB PO SCH (13:29)
[2019-10-25] MEDS: Citalopram 20 MG TAB PO SCH (13:30)
[2019-10-25] MEDS: NIFEdipine XL 60 MG TAB PO SCH (13:30)
[2019-10-25] MEDS: Lisinopril 10 MG TAB PO SCH ×2 (13:30→20:05)
[2019-10-25] MEDS: Aspirin 81 mg Enteric Coated Tablet PO SCH (13:30)
--- NOTE | 2019-10-25 15:59 | PDOC.CPN ---
- Subjective Date: 10/25/19 Time: 15:57 Interval history: No new issues. Severely de conditioning. - Review of Systems General: denies: fever/chills, weight/appetite/sleep changes, night sweats, fatigue Respiratory: denies: cough, congestion, shortness of breath, exercise intolerance Cardiovascular: denies: chest pain, palpitation, edema, paroxysmal nocturnal dyspnea, orthopnea Gastrointestinal: denies: nausea, vomiting, diarrhea, constipation, abd pain, GI bleeding Musculoskeletal: denies: pain, tenderness, stiffness, swelling, arthritis/ arthralgias Neurological: denies: numbness, syncope, seizure, weakness - Objective Allergies/Adverse Reactions: Allergies Allergy/AdvReac Type Severity Reaction Status Date / Time No Known Allergies Allergy Unverified 10/22/19 17:12 Visit Medications: Current Medications Acetaminophen (Tylenol) 650 mg PO Q4H PRN PRN Reason: Headache/Fever/Mild Pain (1-3) Acetaminophen (Tylenol) 650 mg [place] Q4H PRN PRN Reason: Headache/Fever/Mild Pain (1-3) Last Admin: 10/25/19 08:51 Dose: 650 mg Albumin Human (Albumin 25%) 25 gm IVPB Q6H PENDING SALE TO [facility] Stop: 10/26/19 03:01 Last Admin: 10/25/19 08:40 Dose: 25 gm Aspirin (Ecotrin) 81 mg PO DAILY [facility] Last Admin: 10/25/19 13:30 Dose: Not Given Calcium Carbonate (Tums) 1,000 mg PO Q4H PRN PRN Reason: Heartburn or Indigestion Carvedilol (Coreg) 12.5 mg PO TID [facility] Last Admin: 10/25/19 11:57 Dose: Not Given Citalopram Hydrobromide (Celexa) 40 mg PO DAILY [facility] Last Admin: 10/25/19 13:30 Dose: Not Given Dextrose/Water (Dextrose 50%) 25 gm SLOW IVP PRN PRN PRN Reason: Hypoglycemia Famotidine (Pepcid) 20 mg PO QPM [facility]END[facility] Last Admin: 10/24/19 20:31 Dose: 20 mg Glipizide (Glucotrol) 5 mg PO DAILY-AC [facility] Last Admin: 10/25/19 13:29 Dose: Not Given Glucagon (Glucagon) 1 mg IM PRN PRN PRN Reason: Hypoglycemia Heparin Sodium (Porcine) (Heparin) 5,000 units SC TID [facility]END[facility] Last Admin: 10/25/19 08:40 Dose: 5,000 units Hydralazine HCl (Apresoline) 25 mg PO TID [facility] Last Admin: 10/25/19 11:58 Dose: Not Given Hydralazine HCl (Apresoline) 10 mg SLOW IVP Q4H PRN PRN Reason: SBP > 180 and HR < 70 Last Admin: 10/25/19 00:45 Dose: 10 mg Dextrose/Water (D5w) 1,000 mls @ 0 mls/hr IV .Q0M PRN PRN Reason: Hypoglycemia Ceftriaxone Sodium 1 gm/ (Sodium Chloride) 100 mls @ 200 mls/hr IVPB Q24HR [facility]END[facility] Last Admin: 10/24/19 14:24 Dose: 100 mls Insulin Human Lispro (Humalog) 0 units SC .MILD SLIDING SCALE PRN PRN Reason: Mild Correctional Scale Insulin Human Lispro (Humalog) 0 units SC .BEDTIME SLIDING SC PRN PRN Reason: Bedtime Correctional Scale Lisinopril (Zestril) 10 mg PO BID [facility]END[facility] Last Admin: 10/25/19 13:30 Dose: Not Given Nifedipine (Procardia Xl) 60 mg PO DAILY [facility] Last Admin: 10/25/19 13:30 Dose: Not Given Rosuvastatin Calcium (Crestor) 20 mg PO HS [facility]END[facility] Last Admin: 10/24/19 20:32 Dose: 20 mg Sodium Chloride (Flush - Normal Saline) 10 ml IVF Q12HR [facility]END[facility] TO [facility] Last Admin: 10/24/19 20:32 Dose: 10 ml Sodium Chloride (Flush - Normal Saline) 10 ml IVF PRN PRN PRN Reason: Saline Flush Vital Signs & Weight: Vital Signs Temp Pulse Resp BP Pulse Ox 10/25/19 12:28 97.8 F 74 14 161/72 H 96 10/25/19 11:13 102.1 F H 72 14 137/65 94 L 10/25/19 07:32 101.5 F H 82 20 155/70 H 92 L 10/25/19 05:24 99 F 82 16 146/66 H 96 Admit Weight 249 lb Weight 244 lb - Physical Exam General: appears well HEENT: mucus membranes moist Neck: supple neck Cardiac: regular rate and rhythm Lungs: clear to auscultation Neuro: grossly intact Abdomen: active bowel sounds Extremities: 1+ LE edema Skin: clear Musculoskeletal: normal range of motion - Labs Result Diagrams: 10/23/19 04:29 10/25/19 04:03 Troponin/CKMB Troponin I 0.011 ng/mL (< 0.028) 10/22/19 16:56 - Assessment/Plan Assessment/Plan: 1. Acute on chronic diastolic CHF 2. Bilateral LE edema with skin lacerations 3. HTN 4. Severe hip pain. 5, PARESH, likely pre renal. PLAN: - Stop diuresis. Give IV fluids back. - BP better controlled. - Will need placement.
[2019-10-25] MEDS: cefTRIAXone\\ROCEPHIN 1 GM in Sodium Chloride 0.9% 100 ML IVPB SCH (16:05)
--- NOTE | 2019-10-25 18:16 | ULT ---
BILATERAL RENAL ULTRASOUND: HISTORY: Acute kidney insufficiency. COMPARISON: None. FINDINGS: Limited evaluation due to body habitus and bowel gas. Right kidney: There is lobulation with respect to the contour of the right kidney. Limited evaluation for solid masses. Hypoechoic focus in the upper pole of the right kidney measures 2.6 x 2.4 x 2.8 cm. Complex cyst is suggested. No definite hydronephrosiss. Right kidney measurements: 6.9 x 7.1 x 11.5 cm. Left kidney: Limited evaluation of the left renal cortex due to shadowing. Limited evaluation for steve id masses. Hypoechoic focus in the upper pole of the left kidney measures 6.1 x 3.9 x 4.6 cm. Incomplete evaluation. No hydronephrosis. Left kidney measurements 7.4 x 5.4 x 11.6 cm. Urinary bladder: No mucosal abnormality. 171 ml bladder: IMPRESSION: 1. Limited evaluation due to body habitus and bowel gas. No definite hydronephrosis 2. Hypoechoic foci in the left and right kidney, incompletely evaluated. These may represent complex cysts. Better interrogation with nonemergent abdomen MRI or renal mass CT Transcribed Date/Time: 10/25/2019 6:28 PM
--- NOTE | 2019-10-25 18:18 | CON ---
DATE OF CONSULTATION: REASON FOR CONSULTATION: Elevated creatinine. HISTORY OF PRESENT ILLNESS: This is a very pleasant 84-year-old female who was admitted on right hip pain. The patient's creatinine on admission was 2.0, which has increased to 2.45 today. Her prior creatinine was 1.4 in 2014 and 1.8 in 2018. The patient is being taking NSAIDs on a regular basis for pain, and she has developed edema and leg swelling. The patient denies any nausea, vomiting, or chest pain. PAST MEDICAL HISTORY: Hypertension, hyperlipidemia, depression, osteoarthritis, DJD, obesity, history of cholecystectomy, hysterectomy. SOCIAL HISTORY: No alcohol or drug use. FAMILY HISTORY: Negative for ESRD. ALLERGIES: REVIEWED. MEDICATIONS: Home medication list reviewed. Hospital medication list reviewed. REVIEW OF SYSTEMS: Fifteen-point review of system was performed, negative except for positives noted above. GENERAL: HEAD: NECK: No swelling or lumps. NOSE: No epistaxis or discharge. EYES: No diplopia or pain. 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 NEUROPSYCHIATIC SYSTEMS: No suicidal ideation. No ideation. SKIN: Denies any rash or ulcer. CONSTITUTIONAL: No fever or chills. PHYSICAL EXAMINATION: GENERAL: The patient is awake and alert. VITAL SIGNS: Pulse 74, breathing 16, blood pressure 137/65. GENERAL APPEARANCE AND MENTAL STATUS: Fair. HEAD/NECK: Normocephalic. Atraumatic. EYES: EOMI. No deformity. EARS: Clear. No ulcers. NOSE: Intact. No lesions. MOUTH: Clear. No discharge. THROAT: Clear. No exudate. LUNGS: Clear. No crackles. CARDIAC: S1, S2. No rub. ABDOMEN: Benign. Bowel sounds positive. GENITALIA/RECTUM: Coughlin absent. BACK/EXTREMITIES: Edema 0+. NEUROLOGICAL: Alert and motor intact. SKIN: LYMPHATICS: LABORATORY DATA: Creatinine 2.45. ASSESSMENT AND RECOMMENDATION: 1. 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 Continue gentle hydration. 2. Cellulitis also is a contributing factor. 3. Hypertension, stable. 4. Anemia, stable. 5. Medication based on GFR appropriate. No indication for dialysis. We will follow renal imaging. Job ID: [id number]
[2019-10-25] MEDS: Rosuvastatin 20 MG TAB PO SCH (20:04)
[2019-10-25] MEDS: Famotidine 20 MG TAB PO SCH (20:04)
[2019-10-25] MEDS: Acetaminophen 325 MG TAB PO PRN (20:05)
[2019-10-26] MEDS: Melatonin 3 MG TAB PO PRN ×2 (00:15→20:32)
[2019-10-26] MEDS: Albumin 25% 25 GM/100 ML BOT IVPB SCH (03:07)
[2019-10-26 06:42] LABS: Anion Gap 17 mmol/L (10-20); BUN (Urea Nitrogen) 52 mg/dL (9.8-20.1); Calc. Creatinine Clearance 26 mL/min (70-130); Calcium 8.2 mg/dL (7.8-10.44); Carbon Dioxide 21 mmol/L (23-31); Chloride 102 mmol/L (98-107); Estimated GFR-MDRD 16; Glucose 69 mg/dL (83-110); Potassium 3.6 mmol/L (3.5-5.1); Sodium 136 mmol/L (136-145)
[2019-10-26] MEDS: Sodium Chloride 0.45% 1,000 ML IV SCH ×2 (09:09→20:24)
[2019-10-26] MEDS: glipiZIDE 5 MG TAB PO SCH (09:09)
[2019-10-26] MEDS: Aspirin 81 mg Enteric Coated Tablet PO SCH (09:09)
[2019-10-26] MEDS: Heparin 5,000 UNITS/ML VIAL SC SCH ×3 (09:10→20:40)
[2019-10-26] MEDS: Carvedilol 6.25 MG TAB PO SCH ×3 (09:10→20:24)
[2019-10-26] MEDS: Citalopram 20 MG TAB PO SCH (09:10)
[2019-10-26] MEDS: hydrALAZINE 25 MG TAB PO SCH ×3 (09:10→20:23)
[2019-10-26] MEDS: NIFEdipine XL 60 MG TAB PO SCH (09:10)
[2019-10-26] MEDS: Acetaminophen 325 MG TAB PO PRN ×2 (09:14→20:32)
--- NOTE | 2019-10-26 12:26 | PDOC.HOSPP ---
- Subjective Encounter Date: 10/26/19 Encounter Time: 11:15 Subjective: is more awake and alert this am. Son at bedside she ate her breakfast well has had 2 bm's from am - Objective Vital Signs & Weight: Vital Signs (12 hours) Temp Pulse Resp BP BP Pulse Ox 10/26/19 09:10 77 151/55 H 10/26/19 08:00 96 10/26/19 07:16 98 F 77 19 151/55 H 96 10/26/19 03:59 98.1 F 73 20 167/78 H 96 10/26/19 03:13 97.5 F L 73 18 165/73 H 96 Weight Admit Weight 249 lb Weight 239 lb I&O: 10/25/19 10/26/19 10/27/19 06:59 06:59 06:59 Intake Total 1360 237 Output Total 3200 905 Balance -1840 -905 237 Result Diagrams: 10/23/19 04:29 10/26/19 04:50 Additional Labs: Accuchecks 10/26/19 10/26/19 10/25/19 11:29 05:05 19:41 POC Glucose 120 H 84 99 10/25/19 16:51 POC Glucose 101 Hospitalist ROS - Medication Medications: Active Medications Generic Name Dose Route Start Last Admin Trade Name Freq PRN Reason Stop Dose Admin Acetaminophen 650 mg 10/22/19 17:06 10/26/19 09:14 Tylenol PO 650 mg Q4H PRN Administration Headache/Fever/Mild Pain (1-3) Acetaminophen 650 mg 10/22/19 17:06 10/25/19 08:51 Tylenol RI 650 mg Q4H PRN Administration Headache/Fever/Mild Pain (1-3) Aspirin 81 mg 10/23/19 09:00 10/26/19 09:09 Ecotrin PO 81 mg DAILY JUAN ANTONIO Administration Carvedilol 12.5 mg 10/23/19 15:00 10/26/19 09:10 Coreg PO 12.5 mg TID JUAN ANTONIO Administration Citalopram Hydrobromide 40 mg 10/23/19 09:00 10/26/19 09:10 Celexa PO 40 mg DAILY JUAN ANTONIO Administration Famotidine 20 mg 10/22/19 21:00 10/25/19 20:04 Pepcid PO 20 mg QPM JUAN ANTONIO Administration Glipizide 5 mg 10/23/19 07:30 10/26/19 09:09 Glucotrol PO 5 mg DAILY-AC JUAN ANTONIO Administration Heparin Sodium (Porcine) 5,000 units 10/23/19 21:00 10/26/19 09:10 Heparin SC 5,000 units TID JUAN ANTONIO Administration Hydralazine HCl 25 mg 10/24/19 09:00 10/26/19 09:10 Apresoline PO 25 mg TID JUAN ANTONIO Administration Hydralazine HCl 10 mg 10/25/19 00:32 10/25/19 00:45 Apresoline SLOW IVP 10 mg Q4H PRN Administration SBP > 180 and HR < 70 Ceftriaxone Sodium 1 gm/ 100 mls @ 200 mls/hr 10/24/19 15:00 10/25/19 16:05 Sodium Chloride IVPB 100 mls Q24HR JUAN ANTONIO Administration Sodium Chloride 1,000 mls @ 75 mls/hr 10/26/19 07:00 10/26/19 09:09 1/2 Normal Saline IV 1,000 mls .[id number] JUAN ANTONIO Administration Melatonin 3 mg 10/25/19 23:34 10/26/19 00:15 Melatonin PO 3 mg HS PRN Administration Insomnia Nifedipine 60 mg 10/25/19 09:00 10/26/19 09:10 Procardia Xl PO 60 mg DAILY JUAN ANTONIO Administration Rosuvastatin Calcium 20 mg 10/22/19 21:00 10/25/19 20:04 Crestor PO 20 mg HS JUAN ANTONIO Administration Sodium Chloride 10 ml 10/24/19 21:00 10/26/19 09:14 Flush - Normal Saline IVF 10 ml Q12HR JUAN ANTONIO Administration - Exam General Appearance: awake alert Eye: PERRL, anicteric sclera ENT: no oropharyngeal lesions, moist mucosa Neck: supple, no JVD Heart: RRR, no murmur Respiratory: no wheezes, no rales Gastrointestinal: soft, non-tender, non-distended, normal bowel sounds Extremities: no cyanosis, 1+ LE edema Neurological: cranial nerve grossly intact, no focal deficits Hosp A/P (1) Acute exacerbation of CHF (congestive heart failure) Code(s): I50.9 - HEART FAILURE, UNSPECIFIED Status: Acute Qualifiers: Heart failure type: diastolic Qualified Code(s): I50.33 - Acute on chronic diastolic (congestive) heart failure (2) Hypertension, uncontrolled Code(s): I10 - ESSENTIAL (PRIMARY) HYPERTENSION Status: Acute (3) PARESH (acute kidney injury) Code(s): N17.9 - ACUTE KIDNEY FAILURE, UNSPECIFIED Status: Acute (4) DM type 2 (diabetes mellitus, type 2) Status: Chronic Qualifiers: 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 insulin 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: without terminal press operator use Diabetes mellitus complication status: with kidney complications Diabetes mellitus complication detail: with chronic kidney disease Chronic kidney disease stage : stage 2 (mild) Qualified Code(s): E11.22 - Type 2 diabetes mellitus with diabetic chronic kidney disease; N18.2 - Chronic kidney disease, stage 2 (mild) (5) Obesity Code(s): E66.9 - OBESITY, UNSPECIFIED Status: Chronic Qualifiers: Obesity classification: adult class 3 (BMI >= 40) Body mass index: BMI 40.0 -44.9 (6) Dyslipidemia Code(s): E78.5 - HYPERLIPIDEMIA, UNSPECIFIED Status: Chronic (7) Chronic anemia Code(s): D64.9 - ANEMIA, UNSPECIFIED Status: Chronic (8) Osteoarthritis Code(s): M19.90 - UNSPECIFIED OSTEOARTHRITIS, UNSPECIFIED SITE Status: Chronic Qualifiers: Osteoarthritis location: multiple joints Osteoarthritis type: primary Qualified Code(s): M15.0 - Primary generalized (osteo)arthritis - Plan gentle iv hydration for paresh. on procardia xl and hydralazine tid, coreg tid for htn which is slowly getting controlled. continue asp, crestor, glipizide and crestor PT to mobilize as tolerated has underlying dementia as well. Renal function is steadily increasing, albumin infusions B/l leg wounds/blisters are better with decreasing edema. d/w son at bedside, will likely need swing bed, she lives with another son in a trailer in [place], but family prefer someplace in [facility]. Revisted code status with son, he wants her to be full code (10/25/2019). D/w CM for dc plan
--- NOTE | 2019-10-26 12:41 | PRG ---
DATE OF SERVICE: 10/26/2019 SUBJECTIVE: Patient was seen and examined at bedside and overnight events noted. Patient denies any shortness of breath or chest pain or palpitation. No history of nausea or vomiting or diarrhea or fever or chills or cramps. OBJECTIVE: GENERAL: This is an obese female, in no apparent distress. VITAL SIGNS: Temperature . Heart rate 77. Respiratory rate 19. Blood pressure 151/55. HEENT: Atraumatic, normocephalic. Oral mucosa is moist NECK: Supple. CARDIOVASCULAR: S1, S2 heard. Rate and rhythm regular. RESPIRATORY: Clear to auscultation. GASTROINTESTINAL: Abdomen is soft. MUSCULOSKELETAL: No tenderness. No edema. DERMATOLOGIC: No skin rash. NEUROLOGIC: Alert and awake and oriented X3. No focal neurologic deficits. Moving all the extremities. PSYCHIATRIC: Mood and affect normal. LABORATORY DATA: Potassium 3.6, BUN is 52, and creatinine is 2.8 from 2.4 yesterday. ASSESSMENT AND PLAN: 1. Acute kidney injury, most likely secondary to medications. Agree with holding the nephrotoxins and I will monitor renal function. Continue hydration if tolerated. 2. History of hypertension. 3. Anemia. 4. Morbid obesity. 5. Edema, controlled. Renal function is still not getting any better, but I agree with holding the diuretics and lisinopril . Avoid nephrotoxins and renally dose the medications. No acute indication for dialysis. Job ID: [id number]
[2019-10-26] MEDS ORDERED: Haloperidol Lactate 5 MG/ML VIAL IM PRN (13:00)
[2019-10-26] MEDS: cefTRIAXone\\ROCEPHIN 1 GM in Sodium Chloride 0.9% 100 ML IVPB SCH (14:44)
[2019-10-26] MEDS: Loperamide HCl 2 MG CAP PO PRN ×2 (14:52→20:26)
[2019-10-26] MEDS: Ondansetron PF 4 MG/2 ML Vial IVP PRN ×2 (15:09→23:08)
[2019-10-26] MEDS: Famotidine 20 MG TAB PO SCH (20:24)
[2019-10-26] MEDS: Rosuvastatin 20 MG TAB PO SCH (20:25)
[2019-10-27 06:16] LABS: Anion Gap 16 mmol/L (10-20); BUN (Urea Nitrogen) 52 mg/dL (9.8-20.1); Calc. Creatinine Clearance 25 mL/min (70-130); Calcium 7.8 mg/dL (7.8-10.44); Carbon Dioxide 18 mmol/L (23-31); Chloride 101 mmol/L (98-107); Estimated GFR-MDRD 15; Glucose 62 mg/dL (83-110); Potassium 3.4 mmol/L (3.5-5.1); Sodium 132 mmol/L (136-145)
[2019-10-27] MEDS: hydrALAZINE 25 MG TAB PO SCH ×3 (09:53→19:49)
[2019-10-27] MEDS: Loperamide HCl 2 MG CAP PO PRN (09:53)
[2019-10-27] MEDS: NIFEdipine XL 60 MG TAB PO SCH (09:53)
[2019-10-27] MEDS: glipiZIDE 5 MG TAB PO SCH (09:53)
[2019-10-27] MEDS: Citalopram 20 MG TAB PO SCH (09:53)
[2019-10-27] MEDS: Aspirin 81 mg Enteric Coated Tablet PO SCH (09:53)
[2019-10-27] MEDS: Carvedilol 6.25 MG TAB PO SCH ×3 (09:53→19:46)
[2019-10-27] MEDS: Heparin 5,000 UNITS/ML VIAL SC SCH ×3 (09:53→19:51)
--- NOTE | 2019-10-27 15:18 | PDOC.HOSPP ---
- Subjective Encounter Date: 10/27/19 Encounter Time: 07:00 Subjective: awake, not in distress communicates well, has a bit of anxiety but calms down easily son at bedside - Objective Vital Signs & Weight: Vital Signs (12 hours) Temp Pulse Resp BP BP BP Pulse Ox 10/27/19 11:00 98.1 F 75 19 135/62 100 10/27/19 09:53 80 170/66 H 10/27/19 08:00 98 10/27/19 07:27 98.1 F 80 17 170/66 H 95 10/27/19 04:00 97.8 F 79 20 144/68 H 93 L Weight Admit Weight 249 lb Weight 243 lb 3 oz I&O: 10/26/19 10/27/19 10/28/19 06:59 06:59 06:59 Intake Total 714 480 Output Total 905 Balance -905 714 480 Result Diagrams: 10/23/19 04:29 10/27/19 05:27 Additional Labs: Accuchecks 10/27/19 10/27/19 10/26/19 11:49 05:32 20:02 POC Glucose 161 H 71 99 10/26/19 15:47 POC Glucose 90 Hospitalist ROS - Medication Medications: Active Medications Generic Name Dose Route Start Last Admin Trade Name Freq PRN Reason Stop Dose Admin Acetaminophen 650 mg 10/22/19 17:06 10/26/19 20:32 Tylenol PO 650 mg Q4H PRN Administration Headache/Fever/Mild Pain (1-3) Acetaminophen 650 mg 10/22/19 17:06 10/25/19 08:51 Tylenol [place] 650 mg Q4H PRN Administration Headache/Fever/Mild Pain (1-3) Aspirin 81 mg 10/23/19 09:00 10/27/19 09:53 Ecotrin PO 81 mg DAILY JUAN ANTONIO Administration Calcium Carbonate 1,000 mg 10/22/19 17:06 10/26/19 20:27 Tums PO 1,000 mg Q4H PRN Administration Heartburn or Indigestion Carvedilol 12.5 mg 10/23/19 15:00 10/27/19 09:53 Coreg PO 12.5 mg TID JUAN ANTONIO Administration Cefpodoxime Proxetil 100 mg 10/27/19 09:00 10/27/19 09:54 Vantin PO 100 mg BID JUAN ANTONIO Administration Citalopram Hydrobromide 40 mg 10/23/19 09:00 10/27/19 09:53 Celexa PO 40 mg DAILY JUAN ANTONIO Administration Famotidine 20 mg 10/22/19 21:00 10/26/19 20:24 Pepcid PO 20 mg QPM JUAN ANTONIO Administration Glipizide 5 mg 10/23/19 07:30 10/27/19 09:53 Glucotrol PO 5 mg DAILY-AC JUAN ANTONIO Administration Heparin Sodium (Porcine) 5,000 units 10/23/19 21:00 10/27/19 09:53 Heparin SC 5,000 units TID JUAN ANTONIO Administration Hydralazine HCl 25 mg 10/24/19 09:00 10/27/19 09:53 Apresoline PO 25 mg TID JUAN ANTONIO Administration Hydralazine HCl 10 mg 10/25/19 00:32 10/25/19 00:45 Apresoline SLOW IVP 10 mg Q4H PRN Administration SBP > 180 and HR < 70 Loperamide HCl 2 mg 10/26/19 12:57 10/27/19 09:53 Imodium PO 2 mg PRN PRN Administration Diarrhea/Loose Stools Melatonin 3 mg 10/25/19 23:34 10/26/19 20:32 Melatonin PO 3 mg HS PRN Administration Insomnia Nifedipine 60 mg 10/25/19 09:00 10/27/19 09:53 Procardia Xl PO 60 mg DAILY JUAN ANTONIO Administration Ondansetron HCl 4 mg 10/26/19 14:45 10/26/19 23:08 Zofran IVP 4 mg Q6H PRN Administration Nausea/Vomiting Rosuvastatin Calcium 20 mg 10/22/19 21:00 10/26/19 20:25 Crestor PO 20 mg HS JUAN ANTONIO Administration Sodium Chloride 10 ml 10/24/19 21:00 10/27/19 09:54 Flush - Normal Saline IVF 10 ml Q12HR JUAN ANTONIO Administration - Exam General Appearance: awake alert Eye: PERRL, anicteric sclera ENT: no oropharyngeal lesions, moist mucosa Neck: supple, no JVD Heart: RRR, no murmur Respiratory: no wheezes, no rales Gastrointestinal: soft, non-tender, non-distended, normal bowel sounds Extremities: no cyanosis, 1+ LE edema Neurological: cranial nerve grossly intact, no focal deficits Hosp A/P (1) Acute exacerbation of CHF (congestive heart failure) Code(s): I50.9 - HEART FAILURE, UNSPECIFIED Status: Acute Qualifiers: Heart failure type: diastolic Qualified Code(s): I50.33 - Acute on chronic diastolic (congestive) heart failure (2) Hypertension, uncontrolled Code(s): I10 - ESSENTIAL (PRIMARY) HYPERTENSION Status: Acute (3) PARESH (acute kidney injury) Code(s): N17.9 - ACUTE KIDNEY FAILURE, UNSPECIFIED Status: Acute (4) DM type 2 (diabetes mellitus, type 2) Status: Chronic Qualifiers: Diabetes mellitus custodial insulin use: without watermelon harvesting supervisor use Diabetes mellitus complication status: with kidney complications Diabetes mellitus complication detail: with chronic kidney disease Chronic kidney disease stage : stage 2 (mild) Qualified Code(s): E11.22 - Type 2 diabetes mellitus with diabetic chronic kidney disease; N18.2 - Chronic kidney disease, stage 2 (mild) (5) Obesity Code(s): E66.9 - OBESITY, UNSPECIFIED Status: Chronic Qualifiers: Obesity classification: adult class 3 (BMI >= 40) Body mass index: BMI 40.0 -44.9 (6) Dyslipidemia Code(s): E78.5 - HYPERLIPIDEMIA, UNSPECIFIED Status: Chronic (7) Chronic anemia Code(s): D64.9 - ANEMIA, UNSPECIFIED Status: Chronic (8) Osteoarthritis Code(s): M19.90 - UNSPECIFIED OSTEOARTHRITIS, UNSPECIFIED SITE Status: Chronic Qualifiers: Osteoarthritis location: multiple joints Osteoarthritis type: primary Qualified Code(s): M15.0 - Primary generalized (osteo)arthritis - Plan off iv fluids and albumin infusions, start lasix po 6am and 2pm, has +ve balance. on procardia xl and hydralazine tid, coreg tid for htn. continue asp, crestor and crestor. Encourage po intake. PT to mobilize as tolerated has underlying dementia as well. Renal function is steadily increasing B/l leg wounds/blisters are better with decreasing edema, apply eric hose. d/w son at bedside, will likely need swing bed, she lives with another son in a trailer in [place]. Revisted code status with son, he wants her to be full code (10/25/2019). D/w CM for dc plan
[2019-10-27] MEDS: Ondansetron ODT 4 MG TAB PO PRN (15:54)
--- NOTE | 2019-10-27 16:57 | PRG ---
DATE OF SERVICE: 10/27/2019 SUBJECTIVE: Patient was seen and examined at bedside and overnight events noted. Patient denies any shortness of breath or chest pain or palpitation. No history of nausea or vomiting or diarrhea or fever or chills or cramps. OBJECTIVE: GENERAL: This is an obese female, in no apparent distress. VITAL SIGNS: Temperature 98.1. Heart rate 75. Respiratory rate 19. Blood pressure 134/62. HEENT: Atraumatic, normocephalic. Oral mucosa is moist NECK: Supple. CARDIOVASCULAR: S1, S2 heard. Rate and rhythm regular. RESPIRATORY: Clear to auscultation. GASTROINTESTINAL: Abdomen is soft. MUSCULOSKELETAL: No tenderness. No edema. DERMATOLOGIC: No skin rash. NEUROLOGIC: Alert and awake and oriented X3. No focal neurologic deficits. Moving all the extremities. PSYCHIATRIC: Mood and affect normal. LABORATORY DATA: Potassium 3.4, BUN 52, creatinine is 2.9. ASSESSMENT AND PLAN: 1. Acute kidney injury on chronic kidney disease, stage 3. Renal function seems to be stabilizing. Continue to hold KAREN inhibitor and Lasix for now. Limit fluid intake. 2. History of hypertension. 3. Anemia. 4. Morbid obesity. 5. Edema, controlled. Avoid nephrotoxins and we will monitor renal function. Agree with holding the fluids for now. We will follow. Job ID: [id number]
[2019-10-27] MEDS: Famotidine 20 MG TAB PO SCH (19:48)
[2019-10-27] MEDS: Rosuvastatin 20 MG TAB PO SCH (19:49)
[2019-10-27] MEDS: Insulin Glargine 10 UNITS in Pre-Filled Syringe 1 EACH SC SCH (19:52)
[2019-10-28] MEDS: Acetaminophen 325 MG TAB PO PRN ×3 (06:06→23:05)
[2019-10-28] MEDS: Ondansetron ODT 4 MG TAB PO PRN (06:06)
[2019-10-28 06:45] LABS: Anion Gap 16 mmol/L (10-20); BUN (Urea Nitrogen) 56 mg/dL (9.8-20.1); Calc. Creatinine Clearance 20 mL/min (70-130); Calcium 8.1 mg/dL (7.8-10.44); Carbon Dioxide 17 mmol/L (23-31); Chloride 101 mmol/L (98-107); Estimated GFR-MDRD 11; Glucose 108 mg/dL (83-110); Potassium 3.8 mmol/L (3.5-5.1); Sodium 130 mmol/L (136-145)
[2019-10-28] MEDS: Aspirin 81 mg Enteric Coated Tablet PO SCH (09:19)
[2019-10-28] MEDS: Carvedilol 6.25 MG TAB PO SCH ×2 (09:19→14:23)
[2019-10-28] MEDS: hydrALAZINE 25 MG TAB PO SCH ×3 (09:19→20:14)
[2019-10-28] MEDS: Furosemide 40 MG TAB PO SCH ×2 (09:20→14:23)
[2019-10-28] MEDS: Heparin 5,000 UNITS/ML VIAL SC SCH ×3 (09:21→20:14)
[2019-10-28] MEDS: Citalopram 20 MG TAB PO SCH (09:21)
[2019-10-28] MEDS: NIFEdipine XL 60 MG TAB PO SCH (09:25)
--- NOTE | 2019-10-28 11:36 | PRG ---
DATE OF SERVICE: 10/28/2019 SUBJECTIVE: Patient was seen and examined at bedside and overnight events noted. Patient denies any shortness of breath or chest pain or palpitation. No history of nausea or vomiting or diarrhea or fever or chills or cramps. OBJECTIVE: GENERAL: This is an obese elderly female, pleasantly confused, in no acute distress. VITAL SIGNS: Temperature 97.7. Heart rate 73. Respiratory rate 18. Blood pressure 144/68. HEENT: Atraumatic, normocephalic. Oral mucosa is moist NECK: Supple. CARDIOVASCULAR: S1, S2 heard. Rate and rhythm regular. RESPIRATORY: Clear to auscultation. GASTROINTESTINAL: Abdomen is soft. MUSCULOSKELETAL: No tenderness. No edema. DERMATOLOGIC: No skin rash. NEUROLOGIC: Pleasantly confused. PSYCHIATRIC: Mood and affect normal. LABORATORY DATA: Potassium is 3.8, BUN is 56, and creatinine is 3.7. ASSESSMENT AND PLAN: 1. Acute kidney injury on chronic kidney disease, stage 4 with worsening labs. The patient is not making much urine with Lasix and remains fluid overloaded and renal parameters also getting worse. I did have a discussion with the son, who wants to discuss further with her other family members for initiating dialysis. I did explain to her the elderly status and probably early dementia changes. Dialysis would be difficult to achieve without much complications. Family is aware and want to discuss. We will continue to hold nephrotoxins. Lasix as needed and we will follow. 2. History of hypertension. 3. Anemia of chronic disease. 4. Morbid obesity. 5. Edema. Continue on Lasix and monitor urine output. If renal function continues to get worse, we will have to have a renal replacement therapy if family and the patient wishes to do so. We will continue discussion with the family. No acute indication for dialysis for now. Plan discussed with Dr. Contreras too. Job ID: [id number]
--- NOTE | 2019-10-28 17:22 | PDOC.HOSPP ---
- Subjective Encounter Date: 10/28/19 Encounter Time: 13:00 Subjective: awake, less anxious has not ambulated, needing max assist to stand per PT - Objective Vital Signs & Weight: Vital Signs (12 hours) Temp Pulse Resp BP BP BP Pulse Ox 10/28/19 14:23 73 116/63 10/28/19 09:25 73 10/28/19 09:19 73 116/63 10/28/19 07:45 97.7 F 73 22 H 145/68 H 94 L 10/28/19 06:00 98 F 76 18 148/71 H 96 Weight Admit Weight 249 lb Weight 241 lb 10.026 oz I&O: 10/27/19 10/28/19 10/29/19 06:59 06:59 06:59 Intake Total 714 1170 Output Total 500 Balance 714 670 Result Diagrams: 10/23/19 04:29 10/28/19 06:02 Additional Labs: Accuchecks 10/28/19 10/28/19 10/28/19 16:49 11:08 05:52 POC Glucose 146 H 202 H 110 10/28/19 10/27/19 04:33 19:54 POC Glucose 68 L 153 H Hospitalist ROS - Medication Medications: Active Medications Generic Name Dose Route Start Last Admin Trade Name Freq PRN Reason Stop Dose Admin Acetaminophen 650 mg 10/22/19 17:06 10/28/19 17:16 Tylenol PO 650 mg Q4H PRN Administration Headache/Fever/Mild Pain (1-3) Acetaminophen 650 mg 10/22/19 17:06 10/25/19 08:51 Tylenol [place] 650 mg Q4H PRN Administration Headache/Fever/Mild Pain (1-3) Aspirin 81 mg 10/23/19 09:00 10/28/19 09:19 Ecotrin PO 81 mg DAILY JUAN ANTONIO Administration Calcium Carbonate 1,000 mg 10/22/19 17:06 10/26/19 20:27 Tums PO 1,000 mg Q4H PRN Administration Heartburn or Indigestion Cefpodoxime Proxetil 100 mg 10/27/19 09:00 10/28/19 09:19 Vantin PO 100 mg BID JUAN ANTONIO Administration Citalopram Hydrobromide 40 mg 10/23/19 09:00 10/28/19 09:21 Celexa PO 40 mg DAILY JUAN ANTONIO Administration Famotidine 20 mg 10/22/19 21:00 10/27/19 19:48 Pepcid PO 20 mg QPM JUAN ANTONIO Administration Furosemide 40 mg 10/28/19 09:00 10/28/19 14:23 Lasix PO 40 mg 0900,1400 JUAN ANTONIO Administration Hydralazine HCl 25 mg 10/24/19 09:00 10/28/19 14:23 Apresoline PO 25 mg TID JUAN ANTONIO Administration Insulin Glargine 10 units/ 0.1 mls @ 0 mls/hr 10/27/19 21:00 10/27/19 19:52 Miscellaneous Medication SC Not Given HS JUAN ANTONIO Insulin Human Lispro 0 units 10/22/19 17:16 10/28/19 12:23 Humalog SC 3 unit .MILD SLIDING SCALE PRN Administration Mild Correctional Scale Loperamide HCl 2 mg 10/26/19 12:57 10/27/19 09:53 Imodium PO 2 mg PRN PRN Administration Diarrhea/Loose Stools Nifedipine 60 mg 10/25/19 09:00 10/28/19 09:25 Procardia Xl PO 60 mg DAILY JUAN ANTONIO Administration Ondansetron HCl 4 mg 10/26/19 14:45 10/26/19 23:08 Zofran IVP 4 mg Q6H PRN Administration Nausea/Vomiting Ondansetron HCl 4 mg 10/27/19 15:31 10/28/19 06:06 Zofran Odt PO 4 mg Q6H PRN Administration Nausea/Vomiting Quetiapine Fumarate 25 mg 10/27/19 21:00 10/27/19 19:50 Seroquel PO 25 mg HS JUAN ANTONIO Administration Rosuvastatin Calcium 20 mg 10/22/19 21:00 10/27/19 19:49 Crestor PO 20 mg HS JUAN ANTONIO Administration Sodium Chloride 10 ml 10/24/19 21:00 10/28/19 09:21 Flush - Normal Saline IVF 10 ml Q12HR JUAN ANTONIO Administration - Exam General Appearance: awake alert Eye: PERRL, anicteric sclera ENT: no oropharyngeal lesions, moist mucosa Neck: supple, no JVD Heart: RRR, no murmur Respiratory: no wheezes, no rales Gastrointestinal: soft, non-tender, non-distended, normal bowel sounds Extremities: no cyanosis, 1+ LE edema Neurological: cranial nerve grossly intact, no focal deficits Hosp A/P (1) Acute exacerbation of CHF (congestive heart failure) Code(s): I50.9 - HEART FAILURE, UNSPECIFIED Status: Acute Qualifiers: Heart failure type: diastolic Qualified Code(s): I50.33 - Acute on chronic diastolic (congestive) heart failure (2) Hypertension, uncontrolled Code(s): I10 - ESSENTIAL (PRIMARY) HYPERTENSION Status: Acute (3) PARESH (acute kidney injury) Code(s): N17.9 - ACUTE KIDNEY FAILURE, UNSPECIFIED Status: Acute (4) DM type 2 (diabetes mellitus, type 2) Status: Chronic Qualifiers: Diabetes mellitus longterm insulin use: without longterm use Diabetes mellitus complication status: with kidney complications Diabetes mellitus complication detail: with chronic kidney disease Chronic kidney disease stage : stage 2 (mild) Qualified Code(s): E11.22 - Type 2 diabetes mellitus with diabetic chronic kidney disease; N18.2 - Chronic kidney disease, stage 2 (mild) (5) Obesity Code(s): E66.9 - OBESITY, UNSPECIFIED Status: Chronic Qualifiers: Obesity classification: adult class 3 (BMI >= 40) Body mass index: BMI 40.0 -44.9 (6) Dyslipidemia Code(s): E78.5 - HYPERLIPIDEMIA, UNSPECIFIED Status: Chronic (7) Chronic anemia Code(s): D64.9 - ANEMIA, UNSPECIFIED Status: Chronic (8) Osteoarthritis Code(s): M19.90 - UNSPECIFIED OSTEOARTHRITIS, UNSPECIFIED SITE Status: Chronic Qualifiers: Osteoarthritis location: multiple joints Osteoarthritis type: primary Qualified Code(s): M15.0 - Primary generalized (osteo)arthritis - Plan off iv fluids and albumin infusions, is on lasix po 6am and 2pm, has +ve balance. on procardia xl and hydralazine tid, coreg bid for htn. Permissive htn to allow for renal perfusion, to give prn only if sbp >190. continue asp and crestor. Encourage po intake. PT to mobilize as tolerated has underlying dementia as well. Renal function is steadily increasing, will try to avoid starting her on HD if at all possible. B/l leg wounds/blisters are better with decreasing edema, d/w RN to wear eric hose. will likely need swing bed, she lives with another son in a trailer in [place]. Revisted code status with son, he wants her to be full code (10/25/2019). D/w CM for dc plan
[2019-10-28] MEDS: Famotidine 20 MG TAB PO SCH (20:13)
[2019-10-28] MEDS: Rosuvastatin 20 MG TAB PO SCH (20:14)
[2019-10-28] MEDS: Insulin Glargine 10 UNITS in Pre-Filled Syringe 1 EACH SC SCH (20:17)
[2019-10-29] MEDS: Ondansetron ODT 4 MG TAB PO PRN (03:46)
[2019-10-29 06:28] LABS: Anion Gap 16 mmol/L (10-20); BUN (Urea Nitrogen) 60 mg/dL (9.8-20.1); Calc. Creatinine Clearance 17 mL/min (70-130); Calcium 7.8 mg/dL (7.8-10.44); Carbon Dioxide 18 mmol/L (23-31); Chloride 99 mmol/L (98-107); Estimated GFR-MDRD 10; Glucose 95 mg/dL (83-110); Potassium 3.5 mmol/L (3.5-5.1); Sodium 129 mmol/L (136-145)
[2019-10-29] MEDS: NIFEdipine XL 60 MG TAB PO SCH (09:03)
[2019-10-29] MEDS: Carvedilol 6.25 MG TAB PO SCH ×2 (09:03→16:30)
[2019-10-29] MEDS: Citalopram 20 MG TAB PO SCH (09:03)
[2019-10-29] MEDS: Aspirin 81 mg Enteric Coated Tablet PO SCH (09:04)
[2019-10-29] MEDS: hydrALAZINE 25 MG TAB PO SCH ×3 (09:04→20:54)
[2019-10-29] MEDS: Heparin 5,000 UNITS/ML VIAL SC SCH ×2 (09:04→20:54)
[2019-10-29] MEDS: Furosemide 40 MG TAB PO SCH (09:04)
--- NOTE | 2019-10-29 11:10 | PRG ---
DATE OF SERVICE: 10/29/2019 SUBJECTIVE: Patient was seen and examined at bedside and overnight events noted. Patient denies any shortness of breath or chest pain or palpitation. No history of nausea or vomiting or diarrhea or fever or chills or cramps. OBJECTIVE: GENERAL: This is an obese female, in no apparent distress. VITAL SIGNS: Temperature 97.6. Heart rate 75. Respiratory rate 16. Blood pressure 130/71. HEENT: Atraumatic, normocephalic. Oral mucosa is moist. NECK: Supple. CARDIOVASCULAR: S1, S2 heard. Rate and rhythm regular. RESPIRATORY: Clear to auscultation. GASTROINTESTINAL: Abdomen is soft. MUSCULOSKELETAL: No tenderness. No edema. DERMATOLOGIC: No skin rash. NEUROLOGIC: Alert and awake and oriented x3. No focal neurologic deficits. Moving all the extremities. PSYCHIATRIC: Mood and affect normal. LABORATORY DATA: Potassium 3.5, BUN is 60, and creatinine is 4.3. ASSESSMENT AND PLAN: 1. Acute kidney injury on chronic kidney disease, stage 4. Renal function continues to get worse. Avoid nephrotoxins. We will follow. Reduce Lasix and agree with albumin for now. We will continue discussion with the family. No acute indication for dialysis. We will discuss with family for clarification of goals of care. 2. History of hypertension. 3. Anemia of chronic disease. 4. Morbid obesity. 5. Edema. Clinically stable. No acute indication for dialysis, but we will talk with the family to clarify the goal of care. Job ID: [id number]
[2019-10-29] MEDS: Acetaminophen 325 MG TAB PO PRN ×2 (12:28→20:54)
--- NOTE | 2019-10-29 13:29 | PDOC.HOSPP ---
- Subjective Encounter Date: 10/29/19 Encounter Time: 13:00 Subjective: no sob, communicates well says she will try to ambulate with PT today - Objective Vital Signs & Weight: Weight Admit Weight 249 lb Weight 242 lb 15.19 oz I&O: 10/28/19 10/29/19 10/30/19 06:59 06:59 06:59 Intake Total 1170 1100 Output Total 500 950 Balance 670 150 Result Diagrams: 10/23/19 04:29 10/29/19 05:40 Additional Labs: Accuchecks 10/29/19 10/29/19 10/28/19 09:05 04:56 19:43 POC Glucose 143 H 108 132 H 10/28/19 16:49 POC Glucose 146 H Hospitalist ROS - Medication Medications: Active Medications Generic Name Dose Route Start Last Admin Trade Name Freq PRN Reason Stop Dose Admin Acetaminophen 650 mg 10/22/19 17:06 10/29/19 12:28 Tylenol PO 650 mg Q4H PRN Administration Headache/Fever/Mild Pain (1-3) Acetaminophen 650 mg 10/22/19 17:06 10/25/19 08:51 Tylenol [place] 650 mg Q4H PRN Administration Headache/Fever/Mild Pain (1-3) Aspirin 81 mg 10/23/19 09:00 10/29/19 09:04 Ecotrin PO 81 mg DAILY JUAN ANTONIO Administration Calcium Carbonate 1,000 mg 10/22/19 17:06 10/26/19 20:27 Tums PO 1,000 mg Q4H PRN Administration Heartburn or Indigestion Carvedilol 12.5 mg 10/29/19 08:00 10/29/19 09:03 Coreg PO 12.5 mg BID-WM JUAN ANTONIO Administration Cefpodoxime Proxetil 100 mg 10/27/19 09:00 10/29/19 09:02 Vantin PO 100 mg BID JUAN ANTONIO Administration Citalopram Hydrobromide 40 mg 10/23/19 09:00 10/29/19 09:03 Celexa PO 40 mg DAILY JUAN ANTONIO Administration Famotidine 20 mg 10/22/19 21:00 10/28/19 20:13 Pepcid PO 20 mg QPM JUAN ANTONIO Administration Heparin Sodium (Porcine) 5,000 units 10/28/19 21:00 10/29/19 09:04 Heparin SC 5,000 units BID JUAN ANTONIO Administration Hydralazine HCl 25 mg 10/24/19 09:00 10/29/19 09:04 Apresoline PO 25 mg TID JUAN ANTONIO Administration Insulin Glargine 10 units/ 0.1 mls @ 0 mls/hr 10/27/19 21:00 10/28/19 20:17 Miscellaneous Medication SC 0.1 mls HS JUAN ANTONIO Administration Insulin Human Lispro 0 units 10/22/19 17:16 10/28/19 12:23 Humalog SC 3 unit .MILD SLIDING SCALE PRN Administration Mild Correctional Scale Loperamide HCl 2 mg 10/26/19 12:57 10/27/19 09:53 Imodium PO 2 mg PRN PRN Administration Diarrhea/Loose Stools Nifedipine 60 mg 10/25/19 09:00 10/29/19 09:03 Procardia Xl PO 60 mg DAILY JUAN ANTONIO Administration Ondansetron HCl 4 mg 10/26/19 14:45 10/26/19 23:08 Zofran IVP 4 mg Q6H PRN Administration Nausea/Vomiting Ondansetron HCl 4 mg 10/27/19 15:31 10/29/19 03:46 Zofran Odt PO 4 mg Q6H PRN Administration Nausea/Vomiting Quetiapine Fumarate 25 mg 10/27/19 21:00 10/28/19 20:14 Seroquel PO 25 mg HS JUAN ANTONIO Administration Rosuvastatin Calcium 20 mg 10/22/19 21:00 10/28/19 20:14 Crestor PO 20 mg HS JUAN ANTONIO Administration Sodium Chloride 10 ml 10/24/19 21:00 10/29/19 09:04 Flush - Normal Saline IVF Not Given Q12HR [facility] - Exam General Appearance: awake alert Eye: PERRL, anicteric sclera ENT: no oropharyngeal lesions, moist mucosa Neck: supple, no JVD Heart: RRR, no murmur Respiratory: no wheezes, rales, rhonchi Gastrointestinal: soft, non-tender, non-distended, normal bowel sounds Extremities: no cyanosis, 1+ LE edema Neurological: cranial nerve grossly intact, no focal deficits Hosp A/P (1) Acute exacerbation of CHF (congestive heart failure) Code(s): I50.9 - HEART FAILURE, UNSPECIFIED Status: Acute Qualifiers: Heart failure type: diastolic Qualified Code(s): I50.33 - Acute on chronic diastolic (congestive) heart failure (2) PARESH (acute kidney injury) Code(s): N17.9 - ACUTE KIDNEY FAILURE, UNSPECIFIED Status: Acute (3) DM type 2 (diabetes mellitus, type 2) Status: Chronic Qualifiers: Diabetes mellitus mcc insulin use: without terminal block assembler use Diabetes mellitus complication status: with kidney complications Diabetes mellitus complication detail: with chronic kidney disease Chronic kidney disease stage : stage 2 (mild) Qualified Code(s): E11.22 - Type 2 diabetes mellitus with diabetic chronic kidney disease; N18.2 - Chronic kidney disease, stage 2 (mild) (4) Obesity Code(s): E66.9 - OBESITY, UNSPECIFIED Status: Chronic Qualifiers: Obesity classification: adult class 3 (BMI >= 40) Body mass index: BMI 40.0 -44.9 (5) Dyslipidemia Code(s): E78.5 - HYPERLIPIDEMIA, UNSPECIFIED Status: Chronic (6) Chronic anemia Code(s): D64.9 - ANEMIA, UNSPECIFIED Status: Chronic (7) Osteoarthritis Code(s): M19.90 - UNSPECIFIED OSTEOARTHRITIS, UNSPECIFIED SITE Status: Chronic Qualifiers: Osteoarthritis location: multiple joints Osteoarthritis type: primary Qualified Code(s): M15.0 - Primary generalized (osteo)arthritis (8) HTN (hypertension) Code(s): I10 - ESSENTIAL (PRIMARY) HYPERTENSION Status: Chronic Qualifiers: Hypertension type: essential hypertension Qualified Code(s): I10 - Essential (primary) hypertension - Plan repeat albumin infusions q6h x6 doses, lasix po daily. on procardia xl and hydralazine tid, coreg bid for htn. Permissive htn to allow for renal perfusion, to give prn only if sbp >190. continue asp and crestor. Encourage po intake. PT to mobilize as tolerated has underlying dementia as well. Renal function is steadily increasing, will try to avoid starting her on HD if at all possible. B/l leg wounds/blisters are better with decreasing edema, she does not like wearing eric hose (severe pain). will likely need swing bed, she lives with another son in a trailer in [place]. Revisted code status with son, he wants her to be full code (10/25/2019). Might end up on HD if her creatinine continues to worsen.
[2019-10-29] MEDS: Albumin 25% 25 GM/100 ML BOT IVPB SCH ×2 (16:29→21:03)
--- NOTE | 2019-10-29 18:30 | PDOC.CPN ---
- Subjective Date: 10/29/19 Time: 18:28 Interval history: No angina. No SOB. - Review of Systems General: denies: fever/chills, weight/appetite/sleep changes, night sweats, fatigue Respiratory: denies: cough, congestion, shortness of breath, exercise intolerance Cardiovascular: denies: chest pain, palpitation, edema, paroxysmal nocturnal dyspnea, orthopnea Gastrointestinal: denies: nausea, vomiting, diarrhea, constipation, abd pain, GI bleeding Musculoskeletal: denies: pain, tenderness, stiffness, swelling, arthritis/ arthralgias Neurological: denies: numbness, syncope, seizure, weakness - Objective Allergies/Adverse Reactions: Allergies Allergy/AdvReac Type Severity Reaction Status Date / Time No Known Allergies Allergy Unverified 10/22/19 17:12 Visit Medications: Current Medications Acetaminophen (Tylenol) 650 mg PO Q4H PRN PRN Reason: Headache/Fever/Mild Pain (1-3) Last Admin: 10/29/19 12:28 Dose: 650 mg Acetaminophen (Tylenol) 650 mg MT Q4H PRN PRN Reason: Headache/Fever/Mild Pain (1-3) Last Admin: 10/25/19 08:51 Dose: 650 mg Albumin Human (Albumin 25%) 25 gm IVPB Q6H [facility] Stop: 10/30/19 20:01 Last Admin: 10/29/19 16:29 Dose: 25 gm Aspirin (Ecotrin) 81 mg PO DAILY [facility] Last Admin: 10/29/19 09:04 Dose: 81 mg Calcium Carbonate (Tums) 1,000 mg PO Q4H PRN PRN Reason: Heartburn or Indigestion Last Admin: 10/26/19 20:27 Dose: 1,000 mg Carvedilol (Coreg) 12.5 mg PO BID-F [facility] Last Admin: 10/29/19 16:30 Dose: 12.5 mg Cefpodoxime Proxetil (Vantin) 100 mg PO BID [facility] Last Admin: 10/29/19 09:02 Dose: 100 mg Citalopram Hydrobromide (Celexa) 40 mg PO DAILY [facility] Last Admin: 10/29/19 09:03 Dose: 40 mg Dextrose/Water (Dextrose 50%) 25 gm SLOW IVP PRN PRN PRN Reason: Hypoglycemia Famotidine (Pepcid) 20 mg PO QPM [facility] Last Admin: 10/28/19 20:13 Dose: 20 mg Furosemide (Lasix) 40 mg PO DAILY-AC [facility] Glucagon (Glucagon) 1 mg IM PRN PRN PRN Reason: Hypoglycemia Heparin Sodium (Porcine) (Heparin) 5,000 units SC BID [facility] Last Admin: 10/29/19 09:04 Dose: 5,000 units Hydralazine HCl (Apresoline) 25 mg PO TID [facility] Last Admin: 10/29/19 16:30 Dose: 25 mg Dextrose/Water (D5w) 1,000 mls @ 0 mls/hr IV .Q0M PRN PRN Reason: Hypoglycemia Insulin Glargine 10 units/ (Miscellaneous Medication) 0.1 mls @ 0 mls/hr SC [facility] Last Admin: 10/28/19 20:17 Dose: 0.1 mls Insulin Human Lispro (Humalog) 0 units SC .MILD SLIDING SCALE PRN PRN Reason: Mild Correctional Scale Last Admin: 10/28/19 12:23 Dose: 3 unit Insulin Human Lispro (Humalog) 0 units SC .BEDTIME SLIDING SC PRN PRN Reason: Bedtime Correctional Scale Loperamide HCl (Imodium) 2 mg PO PRN PRN PRN Reason: Diarrhea/Loose Stools Last Admin: 10/27/19 09:53 Dose: 2 mg Nifedipine (Procardia Xl) 60 mg PO DAILY [facility] Last Admin: 10/29/19 09:03 Dose: 60 mg Ondansetron HCl (Zofran) 4 mg IVP Q6H PRN PRN Reason: Nausea/Vomiting Last Admin: 10/26/19 23:08 Dose: 4 mg Ondansetron HCl (Zofran Odt) 4 mg PO Q6H PRN PRN Reason: Nausea/Vomiting Last Admin: 10/29/19 03:46 Dose: 4 mg Quetiapine Fumarate (Seroquel) 25 mg PO [facility] Last Admin: 10/28/19 20:14 Dose: 25 mg Rosuvastatin Calcium (Crestor) 20 mg PO [facility] Last Admin: 10/28/19 20:14 Dose: 20 mg Sodium Chloride (Flush - Normal Saline) 10 ml IVF Q12HR [facility] Last Admin: 10/29/19 09:04 Dose: Not Given Sodium Chloride (Flush - Normal Saline) 10 ml IVF PRN PRN PRN Reason: Saline Flush Vital Signs & Weight: Admit Weight 249 lb Weight 242 lb 15.19 oz - Physical Exam General: appears well HEENT: mucus membranes moist Neck: supple neck Cardiac: regular rate and rhythm Lungs: normal breath sounds Neuro: grossly intact Abdomen: active bowel sounds Extremities: no edema Skin: clear Musculoskeletal: no pain - Labs Result Diagrams: 10/23/19 04:29 10/29/19 05:40 Troponin/CKMB Troponin I 0.011 ng/mL (< 0.028) 10/22/19 16:56 - Assessment/Plan Assessment/Plan: 1. Acute on chronic diastolic CHF 2. Bilateral LE edema with skin lacerations 3. HTN 4. Severe hip pain. 5, PARESH, likely pre renal. PLAN: - BP well controlled - CV stable. - Will sign off. Please call with any questions.
[2019-10-29] MEDS: Famotidine 20 MG TAB PO SCH (20:53)
[2019-10-29] MEDS: Rosuvastatin 20 MG TAB PO SCH (20:54)
[2019-10-29] MEDS: Insulin Glargine 10 UNITS in Pre-Filled Syringe 1 EACH SC SCH (21:12)
[2019-10-30] MEDS: Albumin 25% 25 GM/100 ML BOT IVPB SCH ×3 (01:54→16:24)
[2019-10-30 05:56] LABS: Anion Gap 17 mmol/L (10-20); BUN (Urea Nitrogen) 61 mg/dL (9.8-20.1); Calc. Creatinine Clearance 16 mL/min (70-130); Calcium 8.3 mg/dL (7.8-10.44); Carbon Dioxide 20 mmol/L (23-31); Chloride 98 mmol/L (98-107); Estimated GFR-MDRD 9; Glucose 76 mg/dL (83-110); Potassium 3.5 mmol/L (3.5-5.1); Sodium 131 mmol/L (136-145)
[2019-10-30] MEDS: NIFEdipine XL 60 MG TAB PO SCH (07:58)
[2019-10-30] MEDS: Heparin 5,000 UNITS/ML VIAL SC SCH ×2 (07:59→20:45)
[2019-10-30] MEDS: Carvedilol 6.25 MG TAB PO SCH ×2 (07:59→17:19)
[2019-10-30] MEDS: Aspirin 81 mg Enteric Coated Tablet PO SCH (08:00)
[2019-10-30] MEDS: Citalopram 20 MG TAB PO SCH (08:00)
[2019-10-30] MEDS: Furosemide 40 MG TAB PO SCH (08:00)
[2019-10-30] MEDS: hydrALAZINE 25 MG TAB PO SCH ×3 (08:00→20:45)
--- NOTE | 2019-10-30 12:23 | PRG ---
DATE OF SERVICE: SUBJECTIVE: Patient was seen and examined at bedside and overnight events noted. Patient denies any shortness of breath or chest pain or palpitation. No history of nausea or vomiting or diarrhea or fever or chills or cramps. OBJECTIVE: GENERAL: This is a well-built female, in no apparent distress. VITAL SIGNS: Temperature 97.7. Heart rate 67. Respiratory rate 20. Blood pressure 153/61. HEENT: Atraumatic, normocephalic. Oral mucosa is moist. NECK: Supple. CARDIOVASCULAR: S1, S2 heard. Rate and rhythm regular. RESPIRATORY: Clear to auscultation. GASTROINTESTINAL: Abdomen is soft. MUSCULOSKELETAL: No tenderness. No edema. DERMATOLOGIC: No skin rash. NEUROLOGIC: Alert and awake and oriented x3. No focal neurologic deficits. Moving all the extremities. PSYCHIATRIC: Mood and affect normal. LABORATORY DATA: Potassium 3.5, BUN is 61, and creatinine is 4.5. ASSESSMENT AND PLAN: 1. Acute kidney injury on chronic kidney disease, stage 4, stable. No acute indication for dialysis. Continue on albumin. 2. History of hypertension. 3. Anemia of chronic disease. 4. Morbid obesity. 5. Edema. No acute indication for dialysis. Clinically, it seems to be better. We will continue to monitor. Job ID: [id number]
--- NOTE | 2019-10-30 16:34 | PDOC.HOSPP ---
- Subjective Subjective: Seen and examined on the medical unit. 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 Discuss case with case management and we were looking into swing bed, however with renal function continuing to worsen swing bed is not willing to take her at this point. Patient is unsure about hemodialysis. Patient is unsure about code status. Patient is unsure about goals of care. Palliative care consultation requested for goals of care. - Objective Vital Signs & Weight: Vital Signs (12 hours) Temp Pulse Resp BP Pulse Ox 10/30/19 11:35 97.7 F 67 20 153/67 H 96 10/30/19 08:00 73 10/30/19 07:58 73 10/30/19 07:49 98.1 F 73 18 170/71 H 96 Weight Admit Weight 249 lb Weight 243 lb 6.245 oz I&O: 10/29/19 10/30/19 10/31/19 06:59 06:59 06:59 Intake Total 1100 500 Output Total 950 900 Balance 150 -400 Result Diagrams: 10/23/19 04:29 10/30/19 05:16 Additional Labs: Accuchecks 10/30/19 10/30/19 10/30/19 16:08 11:03 04:41 POC Glucose 180 H 144 H 93 10/29/19 20:21 POC Glucose 141 H Radiology Reviewed by me: Yes Hospitalist ROS - Review of Systems All other systems reviewed; all pertinent +/- noted in HPI/Subj - Medication Medications: Active Medications Generic Name Dose Route Start Last Admin Trade Name Freq PRN Reason Stop Dose Admin Acetaminophen 650 mg 10/22/19 17:06 10/29/19 20:54 Tylenol PO 650 mg Q4H PRN Administration Headache/Fever/Mild Pain (1-3) Acetaminophen 650 mg 10/22/19 17:06 10/25/19 08:51 Tylenol [place] 650 mg Q4H PRN Administration Headache/Fever/Mild Pain (1-3) Aspirin 81 mg 10/23/19 09:00 10/30/19 08:00 Ecotrin PO 81 mg DAILY [facility] Administration Calcium Carbonate 1,000 mg 10/22/19 17:06 10/26/19 20:27 Tums PO 1,000 mg Q4H PRN Administration Heartburn or Indigestion Carvedilol 12.5 mg 10/29/19 08:00 10/30/19 07:59 Coreg PO 12.5 mg BID-WM [facility] Administration Cefpodoxime Proxetil 100 mg 10/27/19 09:00 10/30/19 07:57 Vantin PO 100 mg BID [facility] Administration Citalopram Hydrobromide 40 mg 10/23/19 09:00 10/30/19 08:00 Celexa PO 40 mg DAILY [facility] Administration Famotidine 20 mg 10/22/19 21:00 10/29/19 20:53 Pepcid PO 20 mg QPM [facility] Administration Furosemide 40 mg 10/30/19 07:30 10/30/19 08:00 Lasix PO 40 mg DAILY-AC [facility] Administration Heparin Sodium (Porcine) 5,000 units 10/28/19 21:00 10/30/19 07:59 Heparin SC 5,000 units BID [facility] Administration Hydralazine HCl 25 mg 10/24/19 09:00 10/30/19 08:00 Apresoline PO 25 mg TID [facility] Administration Insulin Glargine 10 units/ 0.1 mls @ 0 mls/hr 10/27/19 21:00 10/29/19 21:12 Miscellaneous Medication SC 0.1 mls HS [facility] Administration Insulin Human Lispro 0 units 10/22/19 17:16 10/28/19 12:23 Humalog SC 3 unit .MILD SLIDING SCALE PRN Administration Mild Correctional Scale Loperamide HCl 2 mg 10/26/19 12:57 10/27/19 09:53 Imodium PO 2 mg PRN PRN Administration Diarrhea/Loose Stools Nifedipine 60 mg 10/25/19 09:00 10/30/19 07:58 Procardia Xl PO 60 mg DAILY [facility] Administration Ondansetron HCl 4 mg 10/26/19 14:45 10/26/19 23:08 Zofran IVP 4 mg Q6H PRN Administration Nausea/Vomiting Ondansetron HCl 4 mg 10/27/19 15:31 10/29/19 03:46 Zofran Odt PO 4 mg Q6H PRN Administration Nausea/Vomiting Quetiapine Fumarate 25 mg 10/27/19 21:00 10/29/19 20:54 Seroquel PO 25 mg HS [facility] Administration Rosuvastatin Calcium 20 mg 10/22/19 21:00 10/29/19 20:54 Crestor PO 20 mg HS [facility] Administration Sodium Chloride 10 ml 10/24/19 21:00 10/30/19 08:01 Flush - Normal Saline IVF 10 ml Q12HR [facility] Administration - Exam General Appearance: NAD Eye: anicteric sclera ENT: normocephalic atraumatic, moist mucosa Neck: supple, symmetric, no lymphadenopathy Heart: no murmur, no gallops, no rubs Respiratory: CTAB, no wheezes, no rales, no ronchi Gastrointestinal: soft, non-tender, non-distended, no guarding, no rigidity Extremities: 2+ LE edema Skin: no lesions, no rashes Neurological: cranial nerve grossly intact, no focal deficits Musculoskeletal: generalized weakness Psychiatric: oriented to person, flat affect Hosp A/P (1) PARESH (acute kidney injury) Code(s): N17.9 - ACUTE KIDNEY FAILURE, UNSPECIFIED Status: Acute (2) Acute exacerbation of CHF (congestive heart failure) Code(s): I50.9 - HEART FAILURE, UNSPECIFIED Status: Acute Qualifiers: Heart failure type: diastolic Qualified Code(s): I50.33 - Acute on chronic diastolic (congestive) heart failure (3) Chronic anemia Code(s): D64.9 - ANEMIA, UNSPECIFIED Status: Chronic (4) DM type 2 (diabetes mellitus, type 2) Status: Chronic Qualifiers: 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: without snf use Diabetes mellitus complication status: with kidney complications Diabetes mellitus complication detail: with chronic kidney disease Chronic kidney disease stage : stage 2 (mild) Qualified Code(s): E11.22 - Type 2 diabetes mellitus with diabetic chronic kidney disease; N18.2 - Chronic kidney disease, stage 2 (mild) (5) Dyslipidemia Code(s): E78.5 - HYPERLIPIDEMIA, UNSPECIFIED Status: Chronic (6) HTN (hypertension) Code(s): I10 - ESSENTIAL (PRIMARY) HYPERTENSION Status: Chronic Qualifiers: Hypertension type: essential hypertension Qualified Code(s): I10 - Essential (primary) hypertension (7) Obesity Code(s): E66.9 - OBESITY, UNSPECIFIED Status: Chronic Qualifiers: Obesity classification: adult class 3 (BMI >= 40) Body mass index: BMI 40.0 -44.9 (8) Osteoarthritis Code(s): M19.90 - UNSPECIFIED OSTEOARTHRITIS, UNSPECIFIED SITE Status: Chronic Qualifiers: Osteoarthritis location: multiple joints Osteoarthritis type: primary Qualified Code(s): M15.0 - Primary generalized (osteo)arthritis - Plan Plan: medical unit nephrology consultation, recommendations appreciated cardiology consultation, recommendations appreciated continue cardiomyopathy regimen albumin per nephrology diuretic therapy as needed acute kidney injury on chronic kidney disease, may require hemodialysis of renal function does not improved palliative care consultation, recommendations appreciated goals of care to be addressed code status to be addressed I attempted to bring up the subjects with the patient today and it is unclear how much she is understanding at this point blood pressure control blood sugar control G.I. prophylaxis DVT prophylaxis
[2019-10-30] MEDS: Rosuvastatin 20 MG TAB PO SCH (20:45)
[2019-10-30] MEDS: Famotidine 20 MG TAB PO SCH (20:45)
[2019-10-30] MEDS: Insulin Glargine 10 UNITS in Pre-Filled Syringe 1 EACH SC SCH (23:52)
[2019-10-31 07:23] LABS: Anion Gap 17 mmol/L (10-20); BUN (Urea Nitrogen) 60 mg/dL (9.8-20.1); Calc. Creatinine Clearance 17 mL/min (70-130); Calcium 7.9 mg/dL (7.8-10.44); Carbon Dioxide 19 mmol/L (23-31); Chloride 99 mmol/L (98-107); Estimated GFR-MDRD 10; Glucose 86 mg/dL (83-110); Potassium 3.7 mmol/L (3.5-5.1); Sodium 131 mmol/L (136-145)
[2019-10-31] MEDS: Aspirin 81 mg Enteric Coated Tablet PO SCH (09:04)
[2019-10-31] MEDS: Citalopram 20 MG TAB PO SCH (09:05)
[2019-10-31] MEDS: Carvedilol 6.25 MG TAB PO SCH ×2 (09:05→15:52)
[2019-10-31] MEDS: NIFEdipine XL 60 MG TAB PO SCH (09:07)
[2019-10-31] MEDS: Furosemide 40 MG TAB PO SCH (09:07)
[2019-10-31] MEDS: hydrALAZINE 25 MG TAB PO SCH ×3 (09:08→20:43)
[2019-10-31] MEDS: Heparin 5,000 UNITS/ML VIAL SC SCH ×2 (09:09→20:42)
--- NOTE | 2019-10-31 11:54 | PRG ---
DATE OF SERVICE: 10/31/2019 SUBJECTIVE: Patient was seen and examined at bedside and overnight events noted. Patient denies any shortness of breath or chest pain or palpitation. No history of nausea or vomiting or diarrhea or fever or chills or cramps. OBJECTIVE: GENERAL: This is an elderly female, in no apparent distress. VITAL SIGNS: Temperature 98.3. Heart rate 71. Respiratory rate 18. Blood pressure 174/70. HEENT: Atraumatic, normocephalic. Oral mucosa is moist NECK: Supple. CARDIOVASCULAR: S1, S2 heard. Rate and rhythm regular. RESPIRATORY: Clear to auscultation. GASTROINTESTINAL: Abdomen is soft. MUSCULOSKELETAL: No tenderness. No edema. DERMATOLOGIC: No skin rash. NEUROLOGIC: Alert and awake and oriented X3. No focal neurologic deficits. Moving all the extremities. PSYCHIATRIC: Mood and affect normal. LABORATORY DATA: Potassium 3.7, BUN is 60, and creatinine is 4.39. ASSESSMENT AND PLAN: 1. Acute kidney injury on chronic kidney disease, stage 4 stable likely. Creatinine is better today. BUN is also better. Cautious use of diuretics recommend at this point and continue albumin. 2. History of hypertension, anemia of chronic disease, morbid obesity, and anemia. 3. Renal function getting better. Her urine output is also better. Recommend cautious use of diuretics. Monitor electrolytes. Avoid nephrotoxins and we will follow. Continue antibiotics. Job ID: [id number]
[2019-10-31] MEDS ORDERED: Lorazepam 2 MG/ML VIAL SLOW IVP SCH (15:45)
[2019-10-31] MEDS: hydrOXYzine 25 MG TAB PO SCH ×2 (16:40→20:42)
--- NOTE | 2019-10-31 17:12 | PDOC.HOSPP ---
- Subjective Subjective: Seen and examined on the medical unit. With her son and family members at bedside, she was calm when I saw her. Later when family left she was anxious and agitated. Adding gentle anxiety medications to help keep her calm. Time was given for questions, all answered in detail. Mild improvement in renal function today. - Objective Vital Signs & Weight: Vital Signs (12 hours) Temp Pulse Resp BP BP Pulse Ox 10/31/19 15:52 149/63 H 10/31/19 14:59 68 149/63 H 10/31/19 09:08 71 170/74 H 10/31/19 09:07 71 170/74 H 10/31/19 09:05 174/70 H 10/31/19 08:00 97 10/31/19 07:55 98.3 F 71 18 174/70 H 97 Weight Admit Weight 249 lb Weight 242 lb 1.081 oz I&O: 10/30/19 10/31/19 11/01/19 06:59 06:59 06:59 Intake Total 500 400 Output Total 900 1300 Balance -400 -900 Result Diagrams: 10/23/19 04:29 10/31/19 06:36 Additional Labs: Accuchecks 10/31/19 10/31/19 10/31/19 16:13 11:48 04:42 POC Glucose 158 H 170 H 85 10/30/19 19:50 POC Glucose 114 H Radiology Reviewed by me: Yes Hospitalist ROS - Review of Systems All other systems reviewed; all pertinent +/- noted in HPI/Subj - Medication Medications: Active Medications Generic Name Dose Route Start Last Admin Trade Name Freq PRN Reason Stop Dose Admin Acetaminophen 650 mg 10/22/19 17:06 10/29/19 20:54 Tylenol PO 650 mg Q4H PRN Administration Headache/Fever/Mild Pain (1-3) Acetaminophen 650 mg 10/22/19 17:06 10/25/19 08:[address] 650 mg Q4H PRN Administration Headache/Fever/Mild Pain (1-3) Aspirin 81 mg 10/23/19 09:00 10/31/19 09:04 Ecotrin PO 81 mg DAILY [facility] Administration Calcium Carbonate 1,000 mg 10/22/19 17:06 10/26/19 20:27 Tums PO 1,000 mg Q4H PRN Administration Heartburn or Indigestion Carvedilol 12.5 mg 10/29/19 08:00 10/31/19 15:52 Coreg PO 12.5 mg BID-WM [facility] Administration Cefpodoxime Proxetil 100 mg 10/27/19 09:00 10/31/19 09:10 Vantin PO 100 mg BID [facility] Administration Citalopram Hydrobromide 40 mg 10/23/19 09:00 10/31/19 09:05 Celexa PO 40 mg DAILY [facility] Administration Famotidine 20 mg 10/22/19 21:00 10/30/19 20:45 Pepcid PO 20 mg QPM [facility] Administration Furosemide 40 mg 10/30/19 07:30 10/31/19 09:07 Lasix PO 40 mg DAILY-AC [facility] Administration Heparin Sodium (Porcine) 5,000 units 10/28/19 21:00 10/31/19 09:09 Heparin SC 5,000 units BID [facility] Administration Hydralazine HCl 25 mg 10/24/19 09:00 10/31/19 14:59 Apresoline PO 25 mg TID [facility] Administration Hydroxyzine HCl 25 mg 10/31/19 17:00 10/31/19 16:40 Atarax PO 25 mg Q4HR [facility] Administration Insulin Glargine 10 units/ 0.1 mls @ 0 mls/hr 10/27/19 21:00 10/30/19 23:52 Miscellaneous Medication SC Not Given [facility] Insulin Human Lispro 0 units 10/22/19 17:16 10/28/19 12:23 Humalog SC 3 unit .MILD SLIDING SCALE PRN Administration Mild Correctional Scale Loperamide HCl 2 mg 10/26/19 12:57 10/27/19 09:53 Imodium PO 2 mg PRN PRN Administration Diarrhea/Loose Stools Lorazepam 0.5 mg 10/31/19 15:45 10/31/19 15:53 Ativan SLOW IVP 10/31/19 17:45 0.5 mg NOW [facility] Administration Nifedipine 60 mg 10/25/19 09:00 10/31/19 09:07 Procardia Xl PO 60 mg DAILY [facility] Administration Ondansetron HCl 4 mg 10/26/19 14:45 10/26/19 23:08 Zofran IVP 4 mg Q6H PRN Administration Nausea/Vomiting Ondansetron HCl 4 mg 10/27/19 15:31 10/29/19 03:46 Zofran Odt PO 4 mg Q6H PRN Administration Nausea/Vomiting Quetiapine Fumarate 25 mg 10/27/19 21:00 10/30/19 20:45 Seroquel PO 25 mg HS [facility] Administration Rosuvastatin Calcium 20 mg 10/22/19 21:00 10/30/19 20:45 Crestor PO 20 mg HS [facility] Administration Sodium Chloride 10 ml 10/24/19 21:00 10/31/19 09:12 Flush - Normal Saline IVF 10 ml Q12HR [facility] Administration - Exam General Appearance: NAD, awake alert Eye: anicteric sclera ENT: normocephalic atraumatic, moist mucosa Neck: supple, symmetric, no lymphadenopathy Heart: no murmur, no gallops, no rubs Respiratory: CTAB, no wheezes, no rales, no ronchi, no tachypnea Gastrointestinal: soft, non-tender, non-distended, no rigidity Extremities: 2+ LE edema Skin: no lesions, no rashes Neurological: cranial nerve grossly intact, no focal deficits Musculoskeletal: generalized weakness Psychiatric: oriented to person Psychiatric - other findings: Inappropriate affect at times Hosp A/P (1) PARESH (acute kidney injury) Code(s): N17.9 - ACUTE KIDNEY FAILURE, UNSPECIFIED Status: Acute (2) Acute exacerbation of CHF (congestive heart failure) Code(s): I50.9 - HEART FAILURE, UNSPECIFIED Status: Acute Qualifiers: Heart failure type: diastolic Qualified Code(s): I50.33 - Acute on chronic diastolic (congestive) heart failure (3) Chronic anemia Code(s): D64.9 - ANEMIA, UNSPECIFIED Status: Chronic (4) DM type 2 (diabetes mellitus, type 2) Status: Chronic Qualifiers: Diabetes mellitus skilled nursing insulin use: without skilled nursing use Diabetes mellitus complication status: with kidney complications Diabetes mellitus complication detail: with chronic kidney disease Chronic kidney disease stage : stage 2 (mild) Qualified Code(s): E11.22 - Type 2 diabetes mellitus with diabetic chronic kidney disease; N18.2 - Chronic kidney disease, stage 2 (mild) (5) Dyslipidemia Code(s): E78.5 - HYPERLIPIDEMIA, UNSPECIFIED Status: Chronic (6) HTN (hypertension) Code(s): I10 - ESSENTIAL (PRIMARY) HYPERTENSION Status: Chronic Qualifiers: Hypertension type: essential hypertension Qualified Code(s): I10 - Essential (primary) hypertension (7) Obesity Code(s): E66.9 - OBESITY, UNSPECIFIED Status: Chronic Qualifiers: Obesity classification: adult class 3 (BMI >= 40) Body mass index: BMI 40.0 -44.9 (8) Osteoarthritis Code(s): M19.90 - UNSPECIFIED OSTEOARTHRITIS, UNSPECIFIED SITE Status: Chronic Qualifiers: Osteoarthritis location: multiple joints Osteoarthritis type: primary Qualified Code(s): M15.0 - Primary generalized (osteo)arthritis - Plan Plan: medical unit nephrology consultation, recommendations appreciated cardiology consultation, recommendations appreciated continue cardiomyopathy regimen albumin per nephrology diuretic therapy as needed acute kidney injury on chronic kidney disease, may require hemodialysis of renal function does not improved palliative care consultation, recommendations appreciated goals of care to be addressed code status to be addressed Continue Seroquel QHS PRN medications for anxiety/ agitation - Hydroxyzine preferred blood pressure control blood sugar control G.I. prophylaxis DVT prophylaxis
[2019-10-31] MEDS: Rosuvastatin 20 MG TAB PO SCH (20:42)
[2019-10-31] MEDS: Famotidine 20 MG TAB PO SCH (20:42)
[2019-10-31] MEDS: Insulin Glargine 10 UNITS in Pre-Filled Syringe 1 EACH SC SCH (20:43)
[2019-11-01] MEDS: hydrOXYzine 25 MG TAB PO SCH ×3 (00:53→08:28)
[2019-11-01 05:52] LABS: Anion Gap 18 mmol/L (10-20); BUN (Urea Nitrogen) 58 mg/dL (9.8-20.1); Calc. Creatinine Clearance 18 mL/min (70-130); Calcium 8.5 mg/dL (7.8-10.44); Carbon Dioxide 20 mmol/L (23-31); Chloride 101 mmol/L (98-107); Estimated GFR-MDRD 10; Glucose 113 mg/dL (83-110); Potassium 3.7 mmol/L (3.5-5.1); Sodium 135 mmol/L (136-145)
[2019-11-01] MEDS: Carvedilol 6.25 MG TAB PO SCH ×2 (08:21→16:07)
[2019-11-01] MEDS: Citalopram 20 MG TAB PO SCH (08:22)
[2019-11-01] MEDS: Furosemide 40 MG TAB PO SCH (08:22)
[2019-11-01] MEDS: hydrALAZINE 25 MG TAB PO SCH ×3 (08:23→21:30)
[2019-11-01] MEDS: Aspirin 81 mg Enteric Coated Tablet PO SCH (08:23)
[2019-11-01] MEDS: NIFEdipine XL 60 MG TAB PO SCH (08:26)
[2019-11-01] MEDS: Heparin 5,000 UNITS/ML VIAL SC SCH ×2 (08:27→21:30)
[2019-11-01] MEDS ORDERED: hydrOXYzine 25 MG TAB PO PRN (10:48)
--- NOTE | 2019-11-01 13:28 | PRG ---
DATE OF SERVICE: 11/01/2019 SUBJECTIVE: Patient was seen and examined at bedside and overnight events noted. Patient denies any shortness of breath or chest pain or palpitation. No history of nausea or vomiting or diarrhea or fever or chills or cramps. OBJECTIVE: GENERAL: This is an elderly female, in no apparent distress. VITAL SIGNS: Temperature 98.0. Heart rate 77. Respiratory rate 20. Blood pressure 160/68. HEENT: Atraumatic, normocephalic. Oral mucosa is moist NECK: Supple. CARDIOVASCULAR: S1, S2 heard. Rate and rhythm regular. RESPIRATORY: Clear to auscultation. GASTROINTESTINAL: Abdomen is soft. MUSCULOSKELETAL: 1+ edema. DERMATOLOGIC: No skin rash. NEUROLOGIC: Alert and awake and oriented X3. No focal neurologic deficits. Moving all the extremities. PSYCHIATRIC: Mood and affect normal. LABORATORY DATA: Potassium is 3.7, BUN is 58, and creatinine is 4.2. ASSESSMENT AND PLAN: 1. Acute kidney injury on chronic kidney disease stage 4 with improvement in creatinine. GFR is pretty much same, but better than 2 days back. 2. Edema, on Lasix. 3. Hypertension. 4. Morbid obesity. 5. Anemia of chronic disease. 6. Altered mentation, better. Overall renal function seems to be getting better. I recommend cautious use of diuretics at this time. Avoid nephrotoxins and follow. Job ID: [id number]
--- NOTE | 2019-11-01 13:49 | PDOC.HOSPP ---
- Subjective Subjective: Seen and examined. Continues to clinically improved. Breathing comfortably on room air. Renal function mild improvements continue. Family at bedside, time was given for questions, all answered in detail. Anxiety improved for symptomatic medications. - Objective Vital Signs & Weight: Vital Signs (12 hours) Pulse BP Pulse Ox 11/01/19 08:26 77 160/68 H 11/01/19 08:23 77 160/68 H 11/01/19 08:21 160/68 H 11/01/19 08:00 96 Weight Admit Weight 249 lb Weight 240 lb 15.444 oz I&O: 10/31/19 11/01/19 11/02/19 06:59 06:59 06:59 Intake Total 400 250 Output Total 1300 750 Balance -900 -500 Result Diagrams: 10/23/19 04:29 11/01/19 05:20 Additional Labs: Accuchecks 11/01/19 11/01/19 11/01/19 12:19 11:37 08:22 POC Glucose 148 H 147 H 139 H 11/01/19 10/31/19 10/31/19 04:57 20:05 16:13 POC Glucose 118 H 165 H 158 H Radiology Reviewed by me: Yes Hospitalist ROS - Review of Systems All other systems reviewed; all pertinent +/- noted in HPI/Subj - Medication Medications: Active Medications Generic Name Dose Route Start Last Admin Trade Name Freq PRN Reason Stop Dose Admin Acetaminophen 650 mg 10/22/19 17:06 10/29/19 20:54 Tylenol PO 650 mg Q4H PRN Administration Headache/Fever/Mild Pain (1-3) Acetaminophen 650 mg 10/22/19 17:06 10/25/19 08:51 Tylenol WI 650 mg Q4H PRN Administration Headache/Fever/Mild Pain (1-3) Aspirin 81 mg 10/23/19 09:00 11/01/19 08:23 Ecotrin PO 81 mg DAILY JUAN ANTONIO Administration Calcium Carbonate 1,000 mg 10/22/19 17:06 10/26/19 20:27 Tums PO 1,000 mg Q4H PRN Administration Heartburn or Indigestion Carvedilol 12.5 mg 10/29/19 08:00 11/01/19 08:21 Coreg PO 12.5 mg BID- JUAN ANTONIO Administration Cefpodoxime Proxetil 100 mg 10/27/19 09:00 11/01/19 08:24 Vantin PO 100 mg BID JUAN ANTONIO Administration Citalopram Hydrobromide 40 mg 10/23/19 09:00 11/01/19 08:22 Celexa PO 40 mg DAILY JUAN ANTONIO Administration Famotidine 20 mg 10/22/19 21:00 10/31/19 20:42 Pepcid PO 20 mg QPM JUAN ANTONIO Administration Furosemide 40 mg 10/30/19 07:30 11/01/19 08:22 Lasix PO 40 mg DAILY-AC JUAN ANTONIO Administration Heparin Sodium (Porcine) 5,000 units 10/28/19 21:00 11/01/19 08:27 Heparin SC 5,000 units BID JUAN ANTONIO Administration Hydralazine HCl 25 mg 10/24/19 09:00 11/01/19 08:23 Apresoline PO 25 mg TID JUAN ANTONIO Administration Insulin Glargine 10 units/ 0.1 mls @ 0 mls/hr 10/27/19 21:00 10/31/19 20:43 Miscellaneous Medication SC 0.1 mls HS JUAN ANTONIO Administration Insulin Human Lispro 0 units 10/22/19 17:16 10/28/19 12:23 Humalog SC 3 unit .MILD SLIDING SCALE PRN Administration Mild Correctional Scale Loperamide HCl 2 mg 10/26/19 12:57 10/27/19 09:53 Imodium PO 2 mg PRN PRN Administration Diarrhea/Loose Stools Nifedipine 60 mg 10/25/19 09:00 11/01/19 08:26 Procardia Xl PO 60 mg DAILY JUAN ANTONIO Administration Ondansetron HCl 4 mg 10/26/19 14:45 10/26/19 23:08 Zofran IVP 4 mg Q6H PRN Administration Nausea/Vomiting Ondansetron HCl 4 mg 10/27/19 15:31 10/29/19 03:46 Zofran Odt PO 4 mg Q6H PRN Administration Nausea/Vomiting Quetiapine Fumarate 25 mg 10/27/19 21:00 10/31/19 20:42 Seroquel PO 25 mg HS JUAN ANTONIO Administration Rosuvastatin Calcium 20 mg 10/22/19 21:00 10/31/19 20:42 Crestor PO 20 mg HS JUAN ANTONIO Administration Sodium Chloride 10 ml 10/24/19 21:00 11/01/19 08:29 Flush - Normal Saline IVF 10 ml Q12HR JUAN ANTONIO Administration - Exam General Appearance: NAD, awake alert General - other findings: Balding Eye: anicteric sclera ENT: normocephalic atraumatic, moist mucosa Neck: supple, symmetric, no lymphadenopathy Heart: no murmur, no gallops, no rubs Respiratory: CTAB, no wheezes, no rales, no ronchi, normal chest expansion, no tachypnea Gastrointestinal: soft, non-tender, non-distended, no guarding, no rigidity Extremities: no edema Skin: no lesions, no rashes Neurological: cranial nerve grossly intact, no focal deficits Musculoskeletal: generalized weakness Psychiatric: normal affect, normal behavior, oriented to person, oriented to place Hosp A/P (1) PARESH (acute kidney injury) Code(s): N17.9 - ACUTE KIDNEY FAILURE, UNSPECIFIED Status: Acute (2) Acute exacerbation of CHF (congestive heart failure) Code(s): I50.9 - HEART FAILURE, UNSPECIFIED Status: Acute Qualifiers: Heart failure type: diastolic Qualified Code(s): I50.33 - Acute on chronic diastolic (congestive) heart failure (3) Chronic anemia Code(s): D64.9 - ANEMIA, UNSPECIFIED Status: Chronic (4) DM type 2 (diabetes mellitus, type 2) Status: Chronic Qualifiers: Diabetes mellitus usp insulin use: without predatory animal exterminator use Diabetes mellitus complication status: with kidney complications Diabetes mellitus complication detail: with chronic kidney disease Chronic kidney disease stage : stage 2 (mild) Qualified Code(s): E11.22 - Type 2 diabetes mellitus with diabetic chronic kidney disease; N18.2 - Chronic kidney disease, stage 2 (mild) (5) Dyslipidemia Code(s): E78.5 - HYPERLIPIDEMIA, UNSPECIFIED Status: Chronic (6) HTN (hypertension) Code(s): I10 - ESSENTIAL (PRIMARY) HYPERTENSION Status: Chronic Qualifiers: Hypertension type: essential hypertension Qualified Code(s): I10 - Essential (primary) hypertension (7) Obesity Code(s): E66.9 - OBESITY, UNSPECIFIED Status: Chronic Qualifiers: Obesity classification: adult class 3 (BMI >= 40) Body mass index: BMI 40.0 -44.9 (8) Osteoarthritis Code(s): M19.90 - UNSPECIFIED OSTEOARTHRITIS, UNSPECIFIED SITE Status: Chronic Qualifiers: Osteoarthritis location: multiple joints Osteoarthritis type: primary Qualified Code(s): M15.0 - Primary generalized (osteo)arthritis - Plan Plan: medical unit nephrology consultation, recommendations appreciated cardiology consultation, recommendations appreciated continue cardiomyopathy regimen albumin per nephrology diuretic therapy as needed acute kidney injury on chronic kidney disease, may require hemodialysis of renal function does not improved palliative care consultation, recommendations appreciated goals of care to be addressed code status to be addressed Continue Seroquel QHS PRN medications for anxiety/ agitation - Hydroxyzine preferred blood pressure control blood sugar control G.I. prophylaxis DVT prophylaxis Disposition: Stable for lower level of care, swing bed when available
[2019-11-01] MEDS: Insulin Glargine 10 UNITS in Pre-Filled Syringe 1 EACH SC SCH (21:29)
[2019-11-01] MEDS: Rosuvastatin 20 MG TAB PO SCH (21:30)
[2019-11-01] MEDS: Famotidine 20 MG TAB PO SCH (21:30)
[2019-11-02 06:13] LABS: Anion Gap 19 mmol/L (10-20); BUN (Urea Nitrogen) 58 mg/dL (9.8-20.1); Calc. Creatinine Clearance 18 mL/min (70-130); Calcium 8.8 mg/dL (7.8-10.44); Carbon Dioxide 19 mmol/L (23-31); Chloride 102 mmol/L (98-107); Estimated GFR-MDRD 11; Glucose 119 mg/dL (83-110); Potassium 3.7 mmol/L (3.5-5.1); Sodium 136 mmol/L (136-145)
[2019-11-02] MEDS: Carvedilol 6.25 MG TAB PO SCH ×2 (09:54→17:08)
[2019-11-02] MEDS: hydrALAZINE 25 MG TAB PO SCH ×3 (09:55→20:29)
[2019-11-02] MEDS: Aspirin 81 mg Enteric Coated Tablet PO SCH (09:55)
[2019-11-02] MEDS: NIFEdipine XL 60 MG TAB PO SCH (09:55)
[2019-11-02] MEDS: Citalopram 20 MG TAB PO SCH (09:55)
[2019-11-02] MEDS: Furosemide 40 MG TAB PO SCH (09:55)
[2019-11-02] MEDS: Heparin 5,000 UNITS/ML VIAL SC SCH ×2 (09:57→20:32)
--- NOTE | 2019-11-02 11:26 | PRG ---
DATE OF SERVICE: 11/02/2019 SUBJECTIVE: An 84-year-old female, being seen for acute kidney injury. The patient denied nausea, vomiting, or chest pain. OBJECTIVE: CONSTITUTIONAL: On exam, the patient is awake and alert. VITAL SIGNS: Pulse 75, breathing 16, blood pressure 163/70. GENERAL APPEARANCE AND MENTAL STATUS: Fair. HEAD/NECK: Normocephalic. Atraumatic. EYES: EOMI. No deformity. EARS: Clear. No ulcers. NOSE: Intact. No lesions. MOUTH: Clear. No discharge. THROAT: Clear. No exudate. LUNGS: Clear. No crackles. CARDIAC: S1, S2. No rub. ABDOMEN: Benign. Bowel sounds positive. GENITALIA/RECTUM: Coughlin absent. BACK/EXTREMITIES: Edema 0+. NEUROLOGICAL: Alert and motor intact. SKIN: LYMPHATICS: LABORATORY DATA: Showed hemoglobin 10. Creatinine 4.02. ASSESSMENT AND PLAN: 1. Acute kidney injury on chronic kidney disease, stable. 2. Hypertension, stable. 3. Anemia, stable. 4. Medication based on GFR, appropriate. Job ID: [id number]
--- NOTE | 2019-11-02 18:42 | PDOC.HOSPP ---
- Subjective Encounter Date: 11/02/19 Encounter Time: 10:00 Subjective: Sitting comfortably in bed. She is making good urine ouput. No overnight events. - Objective Vital Signs & Weight: Vital Signs (12 hours) Pulse BP Pulse Ox 11/02/19 17:08 107 H 170/79 H 11/02/19 09:55 107 H 11/02/19 09:54 170/79 H 11/02/19 08:00 96 Weight Admit Weight 249 lb Weight 3.781 oz I&O: 11/01/19 11/02/19 11/03/19 06:59 06:59 06:59 Intake Total 250 730 Output Total 750 Balance -500 730 Result Diagrams: 10/23/19 04:29 11/02/19 04:58 Additional Labs: Accuchecks 11/02/19 11/02/19 11/02/19 16:30 11:22 04:24 POC Glucose 142 H 135 H 133 H 11/01/19 21:16 POC Glucose 127 H Hospitalist ROS - Review of Systems All other systems reviewed; all pertinent +/- noted in HPI/Subj - Medication Medications: Active Medications Generic Name Dose Route Start Last Admin Trade Name Freq PRN Reason Stop Dose Admin Acetaminophen 650 mg 10/22/19 17:06 10/29/19 20:54 Tylenol PO 650 mg Q4H PRN Administration Headache/Fever/Mild Pain (1-3) Acetaminophen 650 mg 10/22/19 17:06 10/25/19 08:51 Tylenol [place] 650 mg Q4H PRN Administration Headache/Fever/Mild Pain (1-3) Aspirin 81 mg 10/23/19 09:00 11/02/19 09:55 Ecotrin PO 81 mg DAILY JUAN ANTONIO Administration Calcium Carbonate 1,000 mg 10/22/19 17:06 10/26/19 20:27 Tums PO 1,000 mg Q4H PRN Administration Heartburn or Indigestion Carvedilol 12.5 mg 10/29/19 08:00 11/02/19 17:08 Coreg PO 12.5 mg BID-WM JUAN ANTONIO Administration Citalopram Hydrobromide 40 mg 10/23/19 09:00 11/02/19 09:55 Celexa PO 40 mg DAILY JUAN ANTONIO Administration Famotidine 20 mg 10/22/19 21:00 11/01/19 21:30 Pepcid PO 20 mg QPM JUAN ANTONIO Administration Furosemide 40 mg 10/30/19 07:30 11/02/19 09:55 Lasix PO 40 mg DAILY-AC JUAN ANTONIO Administration Heparin Sodium (Porcine) 5,000 units 10/28/19 21:00 11/02/19 09:57 Heparin SC 5,000 units BID JUAN ANTONIO Administration Hydralazine HCl 25 mg 10/24/19 09:00 11/02/19 17:08 Apresoline PO 25 mg TID JUAN ANTONIO Administration Hydroxyzine HCl 25 mg 11/01/19 10:48 11/01/19 16:18 Atarax PO 25 mg Q4H PRN Administration Anxiety/Agitation Insulin Glargine 10 units/ 0.1 mls @ 0 mls/hr 10/27/19 21:00 11/01/19 21:29 Miscellaneous Medication SC 0.1 mls HS JUAN ANTONIO Administration Insulin Human Lispro 0 units 10/22/19 17:16 10/28/19 12:23 Humalog SC 3 unit .MILD SLIDING SCALE PRN Administration Mild Correctional Scale Loperamide HCl 2 mg 10/26/19 12:57 10/27/19 09:53 Imodium PO 2 mg PRN PRN Administration Diarrhea/Loose Stools Nifedipine 60 mg 10/25/19 09:00 11/02/19 09:55 Procardia Xl PO 60 mg DAILY JUAN ANTONIO Administration Ondansetron HCl 4 mg 10/26/19 14:45 10/26/19 23:08 Zofran IVP 4 mg Q6H PRN Administration Nausea/Vomiting Ondansetron HCl 4 mg 10/27/19 15:31 10/29/19 03:46 Zofran Odt PO 4 mg Q6H PRN Administration Nausea/Vomiting Quetiapine Fumarate 25 mg 10/27/19 21:00 11/01/19 21:30 Seroquel PO 25 mg HS JUAN ANTONIO Administration Rosuvastatin Calcium 20 mg 10/22/19 21:00 11/01/19 21:30 Crestor PO 20 mg HS JUAN ANTONIO Administration Sodium Chloride 10 ml 10/24/19 21:00 11/02/19 09:58 Flush - Normal Saline IVF Not Given Q12HR JUAN ANTONIO - Exam General Appearance: NAD, awake alert Eye: anicteric sclera Eye - other findings: partial blindness ENT: normocephalic atraumatic, no oropharyngeal lesions, moist mucosa ENT - other findings: hard of hearing Neck: supple, symmetric, no JVD, no thyromegaly, no lymphadenopathy, no carotid bruit Heart: RRR, no murmur, no gallops, no rubs, normal peripheral pulses Respiratory: CTAB, no wheezes, no rales, no ronchi, normal chest expansion, no tachypnea, normal percussion Gastrointestinal: soft, non-tender, non-distended, normal bowel sounds, no palpable masses, no hepatomegaly, no splenomegaly, no bruit Extremities: no cyanosis, no clubbing, 1+ LE edema Skin: normal turgor, no lesions, no rashes Neurological: cranial nerve grossly intact, normal sensation to touch, no weakness, no focal deficits, no new deficit Musculoskeletal: normal tone, no muscle wasting Psychiatric: normal affect, normal behavior, A&O x 3 Hosp A/P (1) PARESH (acute kidney injury) Code(s): N17.9 - ACUTE KIDNEY FAILURE, UNSPECIFIED Status: Acute (2) Acute exacerbation of CHF (congestive heart failure) Code(s): I50.9 - HEART FAILURE, UNSPECIFIED Status: Resolved Qualifiers: Heart failure type: diastolic Qualified Code(s): I50.33 - Acute on chronic diastolic (congestive) heart failure (3) DM type 2 (diabetes mellitus, type 2) Status: Chronic Qualifiers: Diabetes mellitus detention insulin use: without detention use Diabetes mellitus complication status: with kidney complications Diabetes mellitus complication detail: with chronic kidney disease Chronic kidney disease stage : stage 2 (mild) Qualified Code(s): E11.22 - Type 2 diabetes mellitus with diabetic chronic kidney disease; N18.2 - Chronic kidney disease, stage 2 (mild) (4) Dyslipidemia Code(s): E78.5 - HYPERLIPIDEMIA, UNSPECIFIED Status: Chronic (5) HTN (hypertension) Code(s): I10 - ESSENTIAL (PRIMARY) HYPERTENSION Status: Chronic Qualifiers: Hypertension type: essential hypertension Qualified Code(s): I10 - Essential (primary) hypertension (6) Obesity Code(s): E66.9 - OBESITY, UNSPECIFIED Status: Chronic Qualifiers: Obesity classification: adult class 3 (BMI >= 40) Body mass index: BMI 40.0 -44.9 - Plan We will continue monitor creatinine, appears to be improving, she is making urine She has completed 7 days of antibiotic therapy for UTI, discontinue Continue Lasix at 40 mg p.o. daily Continue other home medications Continue blood sugar control Continue antihypertensive medications Continue mobilization and physical therapy Disposition: Placement in swing bed in [place] once creatinine stabilizes. Coordinate with nephrology.
[2019-11-02] MEDS: Rosuvastatin 20 MG TAB PO SCH (20:31)
[2019-11-02] MEDS: Famotidine 20 MG TAB PO SCH (20:31)
[2019-11-02] MEDS: Insulin Glargine 10 UNITS in Pre-Filled Syringe 1 EACH SC SCH (21:10)
[2019-11-02] MEDS: Acetaminophen 325 MG TAB PO PRN (23:17)
[2019-11-03 06:28] LABS: Anion Gap 18 mmol/L (10-20); BUN (Urea Nitrogen) 56 mg/dL (9.8-20.1); Calc. Creatinine Clearance 0 mL/min (70-130); Calcium 9.1 mg/dL (7.8-10.44); Carbon Dioxide 19 mmol/L (23-31); Chloride 102 mmol/L (98-107); Estimated GFR-MDRD 12; Glucose 110 mg/dL (83-110); Potassium 3.6 mmol/L (3.5-5.1); Sodium 135 mmol/L (136-145)
[2019-11-03 06:38] LABS: Hemoglobin 8.6 g/dL (12.0-16.0); Mean Corpuscular Hemoglobin 30.3 pg (27.0-31.0); Mean Platelet Volume 8.9 fL (7.4-10.4); Platelet Count 163 thou/uL (130-400); RBC Distribution Width 14.1 % (11.5-14.5); Red Blood Cell (RBC) Count 2.85 mill/uL (4.20-5.40); White Blood Cell (WBC) Count 6.6 thou/uL (4.8-10.8)
[2019-11-03 06:50] LABS: Band 1 % (5-11); Hypochromia SLIGHT = 6-15 cells (100X) (0-5/hpf); Lymphocytes 8 % (21-51); MDiff Complete? YES; Monocytes 11 % (0-10); Neutrophil 80 % (42-75); Platelet Morphology Comment Appears Adequate
[2019-11-03] MEDS: Aspirin 81 mg Enteric Coated Tablet PO SCH (08:41)
[2019-11-03] MEDS: NIFEdipine XL 60 MG TAB PO SCH (08:41)
[2019-11-03] MEDS: Carvedilol 6.25 MG TAB PO SCH ×2 (08:42→16:20)
[2019-11-03] MEDS: Citalopram 20 MG TAB PO SCH (08:42)
[2019-11-03] MEDS: hydrALAZINE 25 MG TAB PO SCH ×2 (08:42→16:21)
[2019-11-03] MEDS: Furosemide 40 MG TAB PO SCH (08:43)
[2019-11-03] MEDS: Heparin 5,000 UNITS/ML VIAL SC SCH (08:44)
--- NOTE | 2019-11-03 12:16 | PRG ---
DATE OF SERVICE: 11/03/2019 SUBJECTIVE: An 84-year-old female, being seen for acute kidney injury. The patient denied nausea, vomiting, or chest pain. OBJECTIVE: GENERAL: The patient is awake and alert. VITAL SIGNS: Pulse 75, breathing 16, blood pressure 153/72. GENERAL APPEARANCE AND MENTAL STATUS: Fair. HEAD/NECK: Normocephalic. Atraumatic. EYES: EOMI. No deformity. EARS: Clear. No ulcers. NOSE: Intact. No lesions. MOUTH: Clear. No discharge. THROAT: Clear. No exudate. LUNGS: Clear. No crackles. CARDIAC: S1, S2. No rub. ABDOMEN: Benign. Bowel sounds positive. GENITALIA/RECTUM: Coughlin absent. BACK/EXTREMITIES: Edema 0+. NEUROLOGICAL: Alert and motor intact. SKIN: LYMPHATICS: LABORATORY DATA: Reviewed. ASSESSMENT AND PLAN: 1. Chronic kidney disease stage 4, stable. 2. Hypertension, stable. 3. Anemia, stable. 4. Medication based on GFR, appropriate. Job ID: [id number]
[2019-11-03 15:35] VITALS: BMI 40.2
--- NOTE | 2019-11-03 17:08 | EKG ---
Test Reason : Blood Pressure : / mmHG Vent. Rate : 079 BPM Atrial Rate : 079 BPM P-R Int : 176 ms QRS Dur : 098 ms QT Int : 396 ms P-R-T Axes : 008 -32 095 degrees QTc Int : 454 ms Normal sinus rhythm Left axis deviation Moderate voltage criteria for LVH, may be normal variant Nonspecific T wave abnormality Abnormal ECG When compared with ECG of 22-OCT-2019 11:56, (Unconfirmed) T wave inversion now evident in Lateral leads Confirmed by DR. Wes BAILEY ([id number]) on 11/03/2019 5:08:08 PM Referred By: TAMICA Confirmed By:DR. Wes BAILEY
[2019-11-03 17:21] VITALS: BP 152/63; TEMP 97.9
--- NOTE | 2019-11-03 21:46 | PDOC.BPN ---
- Brief Progress Note DISCHARGE SUMMARY [facility] Discharge Patient Name: EDIE HAWKINS Date of : 1935 Patient Status: Inpatient Attending Provider: Earle Silva Date: 11/03/19 21:44 Initialization Date: 11/03/19 21:44 Discharge - Disposition Disposition: SWINGBED FACILITY - Ambulatory Orders Prescriptions: Carvedilol [Coreg] 12.5 mg PO BID-WM 30 Days #60 tab - Patient Instructions Pre-Printed Education: Acute Kidney Injury, Adult, Hypertension, [id number], Managing Your Hypertension Care Plan Goals: FOCUS: Transition from Acute Care after Discharge GOAL: Successful transition to care in the community YOUR TASKS: (1) review all information outlined in your discharge packet (2) follow any instructions outlined in your discharge packet (3) contact your primary care provider if you have questions or need additional assistance 0 TAKE CONTROL OF HEART FAILURE 0 Together we can! o Weigh yourself daily every morning after going to the bathroom. Call your health care provider if you gain 2 pounds in a day or 5 pounds in a week. Use the daily log provided to record your weight. o Eat no more than 2 grams (2000mg) sodium (salt) a day. Read food labels and throw away the salt shaker! o Your personal fluid limit: Take in no more than [ ] ml, equal to [ ] Cups PER DAY. This includes anything that is liquid at room temperature. o Take your Medications as prescribed. Do not skip doses. If you can't afford your medications, please let your doctor know. o Watch for worsening heart failure symptoms such as increased swelling or increased shortness of breath with activity or at rest. o Follow-up with your primary care provider within 1 week of discharge from the hospital. o Maintain activity as tolerated with frequent rest periods. o If you smoke - smoking puts stress on your heart. We can help you quit smoking, just ask. o Expect a follow up call in one to three days if you are being discharged to your home. Please go to heart.org/myhfguide to learn even more about managing your heart failure using the free interactive workbook. - Referrals and PCP Follow-Up Referrals and PCP Follow-Up: [facility] [place] [Outside] Gera Davalos MD [Active] - Barbara Dykes NP [Primary Care Provider] - Nadine Waters MD [Active] - - Activity Instructions Activity:: Activity as Tolerated - Nourishment Instructions Nourishment:: Heart Healthy Diet - Therapy Instructions Therapies:: Physical Therapy Course - Course Orders, Labs, Meds: Patient initially admitted for acute CHF exacerbation. Was managed with diuretics and heart failure medication. An echo was obtained which demonstrated an EF of 55 to 60% with grade 1 diastolic dysfunction. During her course, she had worsening creatinine function. She was managed with gentle IV hydration and avoidance of nephrotoxic agents. Due to her multiple comorbidities and overall senile debility, it was recommended she go to inpatient rehab. Creatinine continued to improve and patient was accepted to the rehab facility. At the time of discharge, patient noted improvement in her overall clinical symptoms. Hosp A/P (1) PARESH (acute kidney injury) Code(s): N17.9 - ACUTE KIDNEY FAILURE, UNSPECIFIED Status: Acute (2) Acute exacerbation of CHF (congestive heart failure) Code(s): I50.9 - HEART FAILURE, UNSPECIFIED Status: Resolved Qualifiers: Heart failure type: diastolic Qualified Code(s): I50.33 - Acute on chronic diastolic (congestive) heart failure (3) DM type 2 (diabetes mellitus, type 2) Status: Chronic Qualifiers: Diabetes mellitus chcf insulin use: without termite exterminator use Diabetes mellitus complication status: with kidney complications Diabetes mellitus complication detail: with chronic kidney disease Chronic kidney disease stage : stage 2 (mild) Qualified Code(s): E11.22 - Type 2 diabetes mellitus with diabetic chronic kidney disease; N18.2 - Chronic kidney disease, stage 2 (mild) (4) Dyslipidemia Code(s): E78.5 - HYPERLIPIDEMIA, UNSPECIFIED Status: Chronic (5) HTN (hypertension) Code(s): I10 - ESSENTIAL (PRIMARY) HYPERTENSION Status: Chronic Qualifiers: Hypertension type: essential hypertension Qualified Code(s): I10 - Essential (primary) hypertension (6) Obesity Code(s): E66.9 - OBESITY, UNSPECIFIED Status: Chronic Qualifiers: Obesity classification: adult class 3 (BMI >= 40) Body mass index: BMI 40.0 -44.9
== END 2019-11-03 17:49 | disposition swing bed (61) | DRG 291 ==
LOC: ERS 11:49 → 2NO 15:49 → OBSVTOIN 18:45 → T4-B 10-25 12:32
PROVIDERS: ADMIT Internal Medicine; ATTEND Internal Medicine
DX: I13.0 Hypertensive heart and chronic kidney disease with heart failure and stage 1 through stage 4 chronic kidney disease, or unspecified chronic kidney disease (principal); I50.33 Acute on chronic diastolic (congestive) heart failure; N18.4 Chronic kidney disease, stage 4 (severe); N17.9 Acute kidney failure, unspecified; Z68.41 Body mass index [BMI] 40.0-44.9, adult; M25.551 Pain in right hip; E78.5 Hyperlipidemia, unspecified; E11.22 Type 2 diabetes mellitus with diabetic chronic kidney disease; E66.01 Morbid (severe) obesity due to excess calories; F32.9 Major depressive disorder, single episode, unspecified; I16.0 Hypertensive urgency; D63.1 Anemia in chronic kidney disease; M15.0 Primary generalized (osteo)arthritis; G89.29 Other chronic pain; F41.9 Anxiety disorder, unspecified; I87.8 Other specified disorders of veins; Z90.49 Acquired absence of other specified parts of digestive tract; Z90.710 Acquired absence of both cervix and uterus; Z79.84 Long term (current) use of oral hypoglycemic drugs; Z79.899 Other long term (current) drug therapy; F03.90 Unspecified dementia, unspecified severity, without behavioral disturbance, psychotic disturbance, mood disturbance, and anxiety
CPT/HCPCS: 36415; 36416; 71045; 76770; 80048; 80053; 81001; 83735; 83880; 84443; 84484; 85025; 87077; 87086; 87186; 93005; 93010; 93306; 93970; 94760; 96374; 96375; J0360; J0696; J1644; J1815; J1940; J2060; J2270; J2405; J3475; J3490; P9047; Q0162

== ENCOUNTER 2019-12-22 17:14 | Inpatient (IN) | payer MEDICARE, OTHER ==
--- NOTE | 2019-12-22 18:06 | RAD ---
Chest one view HISTORY: Altered mental status. Dyspnea. Possible COVID-19 . COMPARISON: 10/22/2019. FINDINGS: Cardiac silhouette is magnified by projection. Pulmonary vasculature upper limits of normal . Subtle patchy peripheral areas of ill-defined parenchymal opacity at the right posterior lung base, a nd involving the left upper and lower lobes. No lobar consolidation or evidence of pneumothorax. Azygous fissure at the right apex. IMPRESSION : Subtle patchy bilateral infiltrates. Clinical correlation regarding other signs and symptoms of viral pneumonitis is required. Borderline pulmonary vascular congestion.
[2019-12-22 18:13] LABS: Hemoglobin 8.4 g/dL (12.0-16.0); Mean Corpuscular Hemoglobin 30.9 pg (27.0-31.0); Mean Corpuscular Volume 96.7 fL (78.0-98.0); Red Blood Cell (RBC) Count 2.71 mill/uL (4.20-5.40); White Blood Cell (WBC) Count 13.1 thou/uL (4.8-10.8)
--- NOTE | 2019-12-22 18:33 | CT ---
CT head noncontrast HISTORY: Altered mental status. FINDINGS: There is no evidence of acute intracranial hemorrhage or infarct. Area of encephalomalacia at the right frontal lobe has the appearance of an old infarct. There is no mass effect or shift of midline structures allowing for rotation of the patient. Mucosal thickening in fluid within the left maxillary sinus. IMPRESSION : No acute intracranial abnormalities are demonstrated. Old right frontal infarct noted. Left maxillary sinusitis.
[2019-12-22 18:38] LABS: ALT (SGPT) 13 U/L (8-55); AST (SGOT) 27 U/L (5-34); Albumin 2.7 g/dL (3.4-4.8); Alkaline Phosphatase 89 U/L (40-110); Anion Gap 17 mmol/L (10-20); BUN (Urea Nitrogen) 83 mg/dL (9.8-20.1); Bilirubin, Total 0.7 mg/dL (0.2-1.2); CK (CPK) 356 U/L (29-168); Calc. Creatinine Clearance 0 mL/min (70-130); Calcium 8.6 mg/dL (7.8-10.44); Carbon Dioxide 13 mmol/L (23-31); Chloride 111 mmol/L (98-107); Estimated GFR-MDRD 7; Globulin 3.2 g/dL (2.4-3.5); Glucose 177 mg/dL (83-110); Potassium 5.2 mmol/L (3.5-5.1); Protein, Total 5.9 g/dL (6.0-8.3); Sodium 136 mmol/L (136-145)
[2019-12-22 18:45] LABS: Anisocytosis SLIGHT = 6-15 cells (100X) (0-5/hpf); Band 37 % (5-11); Lymphocytes 3 % (21-51); MDiff Complete? YES; Mean Platelet Volume 10.7 fL (7.4-10.4); Monocytes 4 % (0-10); Neutrophil 56 % (42-75); Platelet Count 110 thou/uL (130-400); Platelet Morphology Comment Appears Decreased; Polychromasia SLIGHT = 2-3 cells (100X) (0-2/hpf); Tear Drops SLIGHT = 2-5 cells (100X) (0-1/hpf)
[2019-12-22 19:36] LABS: CKMB 2.1 ng/mL (0-6.6)
[2019-12-22] MEDS ORDERED: Cefepime 2 GM VIAL ONE (19:43)
[2019-12-22] MEDS ORDERED: Sodium Chloride 0.9% 100 ML ONE (19:43)
[2019-12-22 19:53] LABS: Bilirubin Small (Negative); Blood, Urine Large (Negative); Glucose, Urine (Dipstick) Negative (Negative); Leukocyte Large (Negative); Nitrite Negative (Negative); Protein, Urine (Dipstick) 100 mg/dL (Neg-Trace)
[2019-12-22 19:59] LABS: Clarity Turbid (Clear)
[2019-12-22 20:00] LABS: Bacteria/HPF 4+ HPF (None Seen); RBC/HPF Greater than 50 HPF (0-3); WBC/HPF Greater Than 50 HPF (0-3)
[2019-12-22] MEDS ORDERED: Vancomycin 1 GM/200 ML BAG ONE (20:23)
--- NOTE | 2019-12-22 22:06 | HP ---
PRIMARY CARE PHYSICIAN: Thaddeus Conteh MD CHIEF COMPLAINT: Altered mental status. HISTORY OF PRESENT ILLNESS: This is an 84-year-old white female, recently in the retirement after congestive heart failure exacerbation a couple months ago. She has a history of dementia, she is usually alert and oriented x2 only. Per the retirement, she was altered since waking up this morning, was also noted to be hypotensive, though no low vital sign number was given, so she was sent by EMS to the emergency room. In the ER, she was found to be altered, could not give her name or any other information and she just states that she feels crazy and is worried that we are going to kill her, may also have some difficulty with hearing, is somnolent in the emergency room as well, though she is able to be aroused. No known symptoms in the retirement besides the above and no fever reported. In the ER, her blood pressure was actually elevated. She was afebrile and saturating well on room air. She was noted to have an elevated white count and bandemia, low lymphocyte count, an evidence of a urinary tract infection on her UA and elevated troponin of 0.6, which is new and creatinine is elevated up to above 5, usually it goes between 2 and 4. She did have a CT of the brain that was unchanged and she had a chest x-ray that showed some patchy bilateral infiltrates consistent with a possible viral pneumonitis. She was given vanc, cefepime, and Levaquin in the emergency room. REVIEW OF SYSTEMS: Unable to obtain secondary to the patient's mental status. PAST MEDICAL HISTORY: All history taken from the chart. 1. Hypertension. 2. Hyperlipidemia. 3. Osteoarthritis. 4. Diabetes mellitus type 2, on oral hypoglycemics. 5. Congestive heart failure, diastolic dysfunction with normal EF on echocardiogram 2 months ago. 6. Chronic kidney disease, stage 4. 7. Dementia. 8. Acute ischemic stroke. PAST SURGICAL HISTORY: 1. Cholecystectomy. 2. Hysterectomy. FAMILY HISTORY: Reports family history of cancer. SOCIAL HISTORY: The patient is retired and . She previously lived with her son in a trailer until 2 months ago, which is when she was sent to SNF and then discharged to retirement, was previously ambulating with a cane and a walker, though I do not know how much she was getting around at the retirement. No tobacco, alcohol, or illicit drug use history. PSYCHIATRIC HISTORY: Positive for depression. ALLERGIES: NO KNOWN DRUG ALLERGIES. CURRENT MEDICATIONS: 1. Acetaminophen as needed for pain and fever. 2. Allopurinol 200 mg daily. 3. Amlodipine 10 mg daily. 4. Atorvastatin 80 mg daily. 5. Buspirone 5 mg 2 tablets twice a day. 6. Carvedilol 12.5 mg twice a day. 7. Citalopram 40 mg daily. 8. Famotidine 20 mg daily. 9. Glipizide 5 mg daily. 10. Hydrochlorothiazide 25 mg twice a day. 11. Lisinopril 20 mg twice a day. 12. Loperamide as needed. 13. Ondansetron as needed. 14. Sertraline 25 mg daily. 15. Terazosin 10 mg daily. 16. Triamcinolone cream twice a day for skin irritation. PHYSICAL EXAMINATION: VITAL SIGNS: Blood pressure 173/60, pulse 87, respirations 22, temperature 98.2, and O2 saturation 99% on room air. GENERAL: This is a well-developed obese white female, who is sleeping in the bed, somnolent, but arousable, will not give me her name, has difficulty understanding me with a PPE on, but states that she does not have any pain, but that she is worried about why she is in the hospital and that if we are going to kill her, states she feels crazy, could not tell me when it was, where she was, or give me her name, or why she is here. HEENT: Pupils are equal, round, and reactive to light. Oropharynx with dried secretions or food material present. No lesions noted. No swelling. No exudate. NECK: Supple. No lymphadenopathy. No thyroid nodules or enlargement. No JVD. HEART: Regular rate and rhythm. No murmurs, rubs, or gallops. LUNGS: Clear to auscultation bilaterally. No wheezes, crackles, or rhonchi. ABDOMEN: Soft, obese, nontender to palpation. Normoactive bowel sounds. No hepatosplenomegaly or other masses. EXTREMITIES: No clubbing, cyanosis, or edema, which is a significant change from her last hospitalization when she was volume overloaded. SKIN: No rashes or lesions noted. NEUROLOGIC: The patient seems to be moving all of her extremities equally, but she will not move them to command and is moving them minimally. She does not have any evident facial droop or slurred speech. PSYCHIATRIC: As above. LABORATORY DATA: White blood cell count 77233 with 56% neutrophils, 37% bands, and only 3% lymphocytes. Hemoglobin is 8.4, which is actually better than her last hospitalization, hematocrit 26.2, platelet count 110, which is about baseline for her. Complete metabolic panel is notable for a potassium of 5.2, which is similar to her previous, BUN is 83, creatinine of 5.72, she actually tends to be more in the 2-3 range, chloride of 111, carbon dioxide of 13, glucose of 177, creatine kinase of 356, and albumin of 2.7, which is decreased from last hospitalization. The rest is normal. CK-MB was negative. Troponin was elevated at 0.663, which is a new elevation from last 2 months. Lactic acid was normal at 1.6. Urinalysis showed 100 protein, trace ketones, large blood, small bilirubin, large leukocyte esterase, greater than 50 rbc's and wbc's, 4-6 squamous epithelials and transitional cells and also 4+ bacteria. IMAGING: Chest x-ray: I did review the chest x-ray done in the emergency room along with the radiologist's report. It does show some subtle infiltrates bilaterally consistent with a viral pneumonitis. CT of the brain shows an old infarct, but no acute findings. EKG done in the emergency room shows normal sinus rhythm with left axis deviation, incomplete right bundle branch block and some poor R-wave progression, possibly related to old lateral infarct, but no evidence for acute ST-segment changes or evidence of acute ischemia. ASSESSMENT: 1. Sepsis without lactic acidosis. We will give 1 L of IV fluids and we will watch closely to make sure we do not send her back into volume overload. We will continue cefepime, Levaquin, and vancomycin renally dosed. Blood and urine cultures are pending. Sepsis is possibly due to urinary tract infection versus pneumonia. Given the current COVID outbreak, a COVID pneumonitis is also at a possibility as such with her lymphopenia, COVID test has been sent by the Emergency Room. We will put her on droplet precautions while she is in the hospital, although that is not the highest thing on our differential at this time with no cough, no hypoxia, and no recorded fevers. 2. Urinary tract infection, on antibiotics and culture pending. 3. Acute on chronic renal failure. We will monitor closely with IV fluids in the emergency room and we will hold hydrochlorothiazide and lisinopril for now. We will consult Dr. Pak, who saw her during her recent hospitalization. 4. Congestive heart failure without current exacerbation, diastolic. We will continue carvedilol and other cardiac medications. 5. Cai-XB-vcpirrjwl myocardial infarction. The patient has new elevation of her troponin. We will consult Cardiology for recommendations on continuing current medications. We will add an aspirin on as well. 6. Gastrointestinal prophylaxis. We will continue the patient's Pepcid. 7. Deep vein thrombosis prophylaxis. Put the patient on SCDs bilaterally. We will hold on any heparin or Lovenox due to her anemia and renal failure and also thrombocytopenia. 8. Anemia likely of chronic renal disease, stable. 9. Code status: I did try and contact the patient's son and is unable to reach him, I did leave a message at his phone #[phone], that is Mehdi Carr, he is the medical [id number]. Per the last admission, the patient was a full code. We will need to confirm that with the son once we get hold of him. Also, we will have Palliative Care consulted as the patient does seem to be declining recently. Job ID: [id number]
[2019-12-23] MEDS ORDERED: Vancomycin 1 GM in Premix Bag 1 BAG IVPB SCH ×2 (00:11→00:30)
[2019-12-23] MEDS ORDERED: Dextrose 5% in Water 1,000 ML IV PRN (00:11)
[2019-12-23] MEDS ORDERED: Acetaminophen 325 MG TAB PO PRN (00:11)
[2019-12-23] MEDS ORDERED: HumaLOG 300 UNITS/3 ML VIAL SC PRN (00:11)
[2019-12-23] MEDS ORDERED: Aspirin 325 MG TAB PO SCH (00:15)
[2019-12-23] MEDS ORDERED: Rosuvastatin 20 MG TAB PO SCH (00:30)
[2019-12-23 00:31] LABS: CKMB 3.6 ng/mL (0-6.6)
[2019-12-23 05:56] LABS: Anion Gap 15 mmol/L (10-20); BUN (Urea Nitrogen) 84 mg/dL (9.8-20.1); Calc. Creatinine Clearance 12 mL/min (70-130); Calcium 8.1 mg/dL (7.8-10.44); Carbon Dioxide 13 mmol/L (23-31); Chloride 113 mmol/L (98-107); Estimated GFR-MDRD 8; Glucose 145 mg/dL (83-110); Potassium 4.9 mmol/L (3.5-5.1); Sodium 136 mmol/L (136-145)
[2019-12-23 06:00] LABS: Hemoglobin 8.2 g/dL (12.0-16.0); Mean Corpuscular HGB CONC 32.2 g/dL (32.0-36.0); Mean Corpuscular Volume 96.3 fL (78.0-98.0); Mean Platelet Volume 10.7 fL (7.4-10.4); Platelet Count 88 thou/uL (130-400); RBC Distribution Width 15.1 % (11.5-14.5); Red Blood Cell (RBC) Count 2.66 mill/uL (4.20-5.40); White Blood Cell (WBC) Count 9.2 thou/uL (4.8-10.8)
[2019-12-23 06:11] LABS: Critical Call Chem Troponin I RESULT DECREASING; Troponin I 0.636 ng/mL (< 0.028)
[2019-12-23 08:15] LABS: Band 28 % (5-11); Elliptocytes SLIGHT = 2-5 cells (100X) (0-1/hpf); Lymphocytes 2 % (21-51); MDiff Complete? YES; Monocytes 6 % (0-10); Neutrophil 64 % (42-75); Platelet Morphology Comment Appears Decreased
[2019-12-23] MEDS: Allopurinol 100 MG TAB PO SCH (09:17)
[2019-12-23] MEDS: Carvedilol 25 MG TAB PO SCH ×2 (09:17→17:05)
[2019-12-23] MEDS: Terazosin HCl 5 MG CAP PO SCH (09:18)
[2019-12-23] MEDS: Amlodipine 10 MG TAB PO SCH (09:18)
[2019-12-23] MEDS: Citalopram 20 MG TAB PO SCH (09:18)
[2019-12-23] MEDS: Aspirin 325 mg Enteric Coated Tablet PO SCH (09:19)
[2019-12-23] MEDS: Famotidine 20 MG TAB PO SCH (09:19)
--- NOTE | 2019-12-23 11:19 | PDOC.HOSPP ---
- Subjective Encounter Date: 12/23/19 Encounter Time: 11:15 Subjective: f/u for sepsis likely due to UTI on current Cefepime/Levaquin. Also being ruled out for COVID-19. Pt does not know why she is in the hospital. - Objective Vital Signs & Weight: Vital Signs (12 hours) Temp Pulse Resp BP BP Pulse Ox 12/23/19 09:18 94 132/59 L 12/23/19 09:14 99 F 94 22 H 132/59 L 96 12/23/19 03:48 95 18 142/62 H 96 12/22/19 23:54 99.7 F H 94 18 129/61 99 Weight Weight 212 lb 3.2 oz Result Diagrams: 12/23/19 05:02 12/23/19 05:02 Additional Labs: Microbiology 12/22/19 19:54 Venous blood - Right Arm Blood Culture - Preliminary Specimen has been received and culture in progress. No Growth to date. 12/22/19 19:53 Venous blood - Left Arm Blood Culture - Preliminary Specimen has been received and culture in progress. No Growth to date. Laboratory Tests 12/22/19 12/22/19 12/22/19 18:01 18:01 18:01 WBC 13.1 H Hgb 8.4 L Plt Count 110 L Band Neuts % (Manual) 37 H Potassium 5.2 H Carbon Dioxide 13 L BUN 83 H Creatinine 5.72 H Lactic Acid Troponin I 0.663 H* 12/22/19 12/22/19 12/23/19 19:53 23:33 05:02 WBC Hgb Plt Count Band Neuts % (Manual) Potassium Carbon Dioxide BUN Creatinine Lactic Acid 1.6 Troponin I 0.727 H* 0.636 H* 12/23/19 05:02 WBC Hgb Plt Count Band Neuts % (Manual) 28 H Potassium Carbon Dioxide BUN Creatinine Lactic Acid Troponin I Radiology Reviewed by me: Yes (CT brain - L maxillary sinusitis) EKG Reviewed by me: Yes (Tele - SR) Hospitalist ROS - Medication Medications: Active Medications Generic Name Dose Route Start Last Admin Trade Name Freq PRN Reason Stop Dose Admin Allopurinol 200 mg 12/23/19 09:00 12/23/19 09:17 Zyloprim PO 200 mg DAILY JUAN ANTONIO Administration Amlodipine Besylate 10 mg 12/23/19 09:00 12/23/19 09:18 Norvasc PO 10 mg DAILY JUAN ANTONIO Administration Aspirin 325 mg 12/23/19 09:00 12/23/19 09:19 Ecotrin PO 325 mg DAILY JUAN ANTONIO Administration Carvedilol 12.5 mg 12/23/19 08:00 12/23/19 09:17 Coreg PO 12.5 mg BID-WM JUAN ANTONIO Administration Citalopram Hydrobromide 40 mg 12/23/19 09:00 12/23/19 09:18 Celexa PO 40 mg QAM JUAN ANTONIO Administration Famotidine 20 mg 12/23/19 09:00 12/23/19 09:19 Pepcid PO 20 mg DAILY JUAN ANTONIO Administration Terazosin HCl 10 mg 12/23/19 09:00 12/23/19 09:18 Hytrin PO 10 mg DAILY JUAN ANTONIO Administration - Exam General Appearance: awake alert, ill appearing Eye: PERRL, anicteric sclera ENT: normocephalic atraumatic, no oropharyngeal lesions Neck: supple, symmetric, no JVD, no thyromegaly Heart: RRR, no gallops, no rubs, normal peripheral pulses Heart - other findings: S1, S2 Respiratory: CTAB, no wheezes, no rales, no ronchi, normal chest expansion Gastrointestinal: soft, non-tender, non-distended, normal bowel sounds, no palpable masses Gastrointestinal - other findings: obese Extremities: no cyanosis, no clubbing, 1+ LE edema Skin: normal turgor, no lesions Neurological: cranial nerve grossly intact, no new deficit Musculoskeletal: normal tone, generalized weakness Psychiatric: oriented to person Hosp A/P (1) Sepsis due to urinary tract infection Code(s): A41.9 - SEPSIS, UNSPECIFIED ORGANISM; N39.0 - URINARY TRACT INFECTION, SITE NOT SPECIFIED Status: Acute Plan: Continue Cefepime/Levaquin, await final Ucx results, continue IVF's, Klebsiella spp likely etiology (2) Acute kidney injury superimposed on CKD Code(s): N17.9 - ACUTE KIDNEY FAILURE, UNSPECIFIED; N18.9 - CHRONIC KIDNEY DISEASE, UNSPECIFIED Status: Acute Plan: Avoid nephrotoxic meds and limit contrast exposure, serial creatinine (3) NSTEMI (non-ST elevated myocardial infarction) Code(s): I21.4 - NON-ST ELEVATION (NSTEMI) MYOCARDIAL INFARCTION Status: Acute Plan: Emilia Sebastian II due to demand ischemia, medical mgmt (4) Anemia in CKD (chronic kidney disease) Code(s): N18.9 - CHRONIC KIDNEY DISEASE, UNSPECIFIED; D63.1 - ANEMIA IN CHRONIC KIDNEY DISEASE Status: Chronic Plan: No active blood loss, serial H/H (5) DM type 2 (diabetes mellitus, type 2) Status: Chronic Qualifiers: Diabetes mellitus salvage determiner insulin use: without prison use Diabetes mellitus complication status: with kidney complications Diabetes mellitus complication detail: with chronic kidney disease Chronic kidney disease stage : stage 2 (mild) Qualified Code(s): E11.22 - Type 2 diabetes mellitus with diabetic chronic kidney disease; N18.2 - Chronic kidney disease, stage 2 (mild) Plan: ISS, resume home oral hypoglycemic, serial accuchecks, ADA (6) HTN (hypertension) Code(s): I10 - ESSENTIAL (PRIMARY) HYPERTENSION Status: Chronic Qualifiers: Hypertension type: essential hypertension Qualified Code(s): I10 - Essential (primary) hypertension - Plan continue antibiotics, PT/OT, manager social media, speech therapy, DVT proph w/SCDs Stable currently Continue low-volume IVF's Continue Cefepime/Levaquin COVID-19 r/o pending Respiratory isolation AM lab: BMP, CBC
[2019-12-23] MEDS: HumaLOG 300 UNITS/3 ML VIAL SC PRN (11:51)
--- NOTE | 2019-12-23 14:00 | CON ---
DATE OF CONSULTATION: 12/23/2019 CONSULTING PHYSICIAN: Jerald Alexis MD REASON FOR CONSULTATION: Acute kidney injury. REASON FOR ADMISSION: Altered mentation. HISTORY OF PRESENT ILLNESS: An 84-year-old female with a history of dementia, hypertension, hyperlipidemia, CHF, came to the hospital with altered mentation, and was found to have elevated creatinine. The patient was seen in the hospital a few weeks back with acute kidney injury, which recovered with a GFR of 21, now it dropped to 8. She is severely demented, not able to give good history, and also hard of hearing. No fever or chills. No nausea or vomiting. PAST MEDICAL HISTORY: Positive for hypertension, hyperlipidemia, osteoarthritis, diabetes, congestive heart failure, CKD, dementia, stroke. PAST SURGICAL HISTORY: Cholecystectomy and hysterectomy. HOME MEDICATIONS: Reviewed. ALLERGIES: NO KNOWN DRUG ALLERGIES. SOCIAL HISTORY: No smoking, alcohol, or illicit drug use. FAMILY HISTORY: No history of kidney disease. REVIEW OF SYSTEMS: Could not be obtained due to dementia, and the patient is not able to give a good history. PHYSICAL EXAMINATION: GENERAL: Elderly demented lady, hard of hearing. VITAL SIGNS: Temperature 98.1, pulse 81, respiratory rate 20, blood pressure 140/61. HEENT: Atraumatic, normocephalic. NECK: Supple. CV: S1, S2. Regular rate and rhythm. RESPIRATORY: Clear. GI: Abdomen is soft MUSCULOSKELETAL: 1+ edema. NEUROLOGICAL: Dementia present. LABORATORY DATA: Hemoglobin 8.2. Potassium 4.9, BUN is 84, creatinine is 5.3. ASSESSMENT AND PLAN: 1. Acute kidney injury on chronic kidney disease, stage 4 to stage 5 with worsening. 2. Hyperkalemia. 3. Acidosis. 4. Chronic anemia. 5. History of hypertension. 6. Dementia. Continue supportive care and IV hydration. The patient has severe dementia. Not most likely an adequate candidate for dialysis. Agree with palliative care consult, and we will continue to follow. The patient is also a COVID-19 rule out status. We will continue to follow. Continue supportive care. Avoid nephrotoxins. Job ID: [id number]
--- NOTE | 2019-12-23 17:36 | CON ---
DATE OF CONSULTATION: 12/23/2019 REASON FOR CONSULTATION: Non-STEMI. HISTORY OF PRESENT ILLNESS: Ms. Carr is an 84-year-old white female, who comes to the hospital for altered mentation. She was diagnosed with what appears to be a UTI and she has positive blood cultures as well. She is demented and most likely the altered mentation is related to worsening of her dementia from UTI and sepsis. She is also getting ruled out for COVID-19 given her episode of fever, and infiltrates on her chest x-ray, which may be edema versus atypical pneumonia. On my evaluation, the patient is still confused. PAST MEDICAL HISTORY: 1. Hypertension. 2. Hyperlipidemia. 3. Osteoarthritis. 4. Type 2 diabetes. 5. Diastolic heart failure. 6. Chronic kidney disease stage 4. 7. Dementia. 8. Ischemic stroke. PAST SURGICAL HISTORY: 1. Cholecystectomy. 2. Hysterectomy. FAMILY HISTORY: Noncontributory. SOCIAL HISTORY: Lives in correction facility. No alcohol, tobacco, or drugs. OUTPATIENT MEDICATIONS: 1. Tylenol p.r.n. 2. Allopurinol. 3. Amlodipine 10 mg a day. 4. Atorvastatin 80 mg a day. 5. BuSpar 5 mg 2 tablets twice a day. 6. Carvedilol 12.5 mg b.i.d. 7. Citalopram. 8. Famotidine. 9. Glipizide. 10. Hydrochlorothiazide 25 mg twice a day. 11. Lisinopril 20 mg twice a day. 12. Loperamide. 13. Ondansetron. 14. Sertraline. 15. Terazosin. 16. Triamcinolone. ALLERGIES: NO KNOWN DRUG ALLERGIES. REVIEW OF SYSTEMS: Unobtainable as the patient remains confused. PHYSICAL EXAMINATION: VITAL SIGNS: Temperature 98.1, pulse 81, respiratory rate 20, saturating 98% on room air, and blood pressure 114/61. GENERAL: Confused. HEENT: Normocephalic. NECK: Supple. LUNGS: Crackles at the bases. CARDIOVASCULAR: S1 and S2. ABDOMEN: Soft. Positive bowel sounds. EXTREMITIES: 2+ edema. SKIN: Warm and dry. LABORATORY DATA: Laboratory work was reviewed. Sodium 136, potassium of 4.9, chloride of 113, carbon dioxide of 13, anion gap of 15, BUN of 84, creatinine of 5.36, GFR of 8. Troponin was 0.6, 0.7, and 0.6. Normal CK-MB. Blood culture was positive for Klebsiella pneumoniae in one tube and the other one gram-negative rods. ASSESSMENT: 1. Type 2 demand type of ischemia. 2. Urinary tract infection, sepsis. 3. Awaiting rule out for COVID-19. 4. Diastolic congestive heart failure. 5. Dementia. PLAN: 1. Conservative therapy from the cardiac perspective. 2. Most likely troponin is just a leak from her septic type picture. 3. No indication for full anticoagulation given this is a septic situation and troponins are only a marker for increased mortality rather than an acute coronary syndrome and an intracoronary event. Thank you for letting us participate in the care of your patient. We will follow. Job ID: [id number]
[2019-12-23] MEDS: Rosuvastatin 20 MG TAB PO SCH (20:11)
[2019-12-23] MEDS: Cefepime 0.5 GM, Admixture Fee 1 EACH in Sodium Chloride 0.9% 100 ML IVPB SCH (20:11)
[2019-12-23 23:46] LABS: Vancomycin, Random 18.9 ug/mL (See Comment)
[2019-12-24] MEDS ORDERED: Vancomycin HCl 500 MG in Sodium Chloride 0.9% 100 ML IVPB SCH (00:45)
[2019-12-24 05:50] LABS: Anion Gap 14 mmol/L (10-20); BUN (Urea Nitrogen) 93 mg/dL (9.8-20.1); Calc. Creatinine Clearance 12 mL/min (70-130); Calcium 8.3 mg/dL (7.8-10.44); Carbon Dioxide 14 mmol/L (23-31); Chloride 114 mmol/L (98-107); Estimated GFR-MDRD 8; Glucose 115 mg/dL (83-110); Potassium 4.5 mmol/L (3.5-5.1); Sodium 137 mmol/L (136-145)
[2019-12-24 06:19] LABS: Anisocytosis SLIGHT = 6-15 cells (100X) (0-5/hpf); Band 19 % (5-11); Hemoglobin 8.1 g/dL (12.0-16.0); Lymphocytes 3 % (21-51); MDiff Complete? YES; Mean Corpuscular Hemoglobin 31.2 pg (27.0-31.0); Mean Corpuscular Volume 97.4 fL (78.0-98.0); Mean Platelet Volume 10.9 fL (7.4-10.4); Monocytes 4 % (0-10); Neutrophil 74 % (42-75); Platelet Count 83 thou/uL (130-400); Platelet Morphology Comment Appears Decreased; RBC Distribution Width 15.3 % (11.5-14.5); Red Blood Cell (RBC) Count 2.59 mill/uL (4.20-5.40); White Blood Cell (WBC) Count 7.6 thou/uL (4.8-10.8)
[2019-12-24] MEDS: Carvedilol 25 MG TAB PO SCH ×2 (09:57→16:47)
[2019-12-24] MEDS: Allopurinol 100 MG TAB PO SCH (09:58)
[2019-12-24] MEDS: Citalopram 20 MG TAB PO SCH (09:59)
[2019-12-24] MEDS: Amlodipine 10 MG TAB PO SCH (09:59)
[2019-12-24] MEDS: Famotidine 20 MG TAB PO SCH (09:59)
[2019-12-24] MEDS: Terazosin HCl 5 MG CAP PO SCH (09:59)
[2019-12-24] MEDS: Aspirin 325 mg Enteric Coated Tablet PO SCH (09:59)
--- NOTE | 2019-12-24 11:38 | PRG ---
DATE OF SERVICE: 12/24/2019 SUBJECTIVE: The patient is on COVID-19 isolation. OBJECTIVE: VITAL SIGNS: Temperature pulse 80, respiratory rate 22, and blood pressure 123/56. LABORATORY DATA: Potassium 4.5, BUN is 93, and creatinine is 5.29. ASSESSMENT AND PLAN: 1. Acute kidney injury on chronic kidney disease, stage 5 with poor prognosis. 2. Hyperkalemia . 3. Acidosis. 4. Chronic anemia. 5. Hypertension. 6. Advanced dementia. Prognosis is very poor. I do not think she is a good candidate for dialysis. I would recommend palliative consult and family discussion about goals of care. Job ID: [id number]
--- NOTE | 2019-12-24 17:07 | PDOC.HOSPP ---
- Subjective Encounter Date: 12/24/19 Encounter Time: 16:45 Subjective: f/u for sepsis due to Klebsiella spp UTI on Cefepime/Levaquin. Remains confused and intermittently agitated. No new events noted. - Objective Vital Signs & Weight: Vital Signs (12 hours) Temp Pulse Resp BP BP Pulse Ox 12/24/19 15:33 96.2 F L 74 18 106/54 L 98 12/24/19 12:00 96.1 F L 75 24 H 91/54 L 98 12/24/19 10:00 96.1 F L 80 26 H 123/56 L 97 Weight Admit Weight 212 lb 3.2 oz Weight 212 lb 3.2 oz I&O: 12/23/19 12/24/19 12/25/19 06:59 06:59 06:59 Intake Total 120 Output Total 350 Balance -230 Result Diagrams: 12/24/19 05:19 12/24/19 05:19 Additional Labs: Accuchecks 12/24/19 12/24/19 12/23/19 10:29 05:29 17:08 POC Glucose 126 H 168 H 141 H Microbiology 12/22/19 19:54 Venous blood - Right Arm Blood Culture - Preliminary Specimen has been received and culture in progress. No Growth to date. 12/22/19 19:54 Venous blood - Right Arm Blood Culture - Preliminary Presumptive Kleb/Enterobacter 12/22/19 19:53 Venous blood - Left Arm Blood Culture - Preliminary Specimen has been received and culture in progress. No Growth to date. 12/22/19 19:53 Venous blood - Left Arm Blood Culture - Preliminary Klebsiella pneumoniae Laboratory Tests 12/22/19 12/22/19 12/22/19 18:01 18:01 18:01 WBC 13.1 H Hgb 8.4 L Plt Count 110 L Neutrophils % (Manual) Band Neuts % (Manual) 37 H Potassium 5.2 H Carbon Dioxide 13 L BUN 83 H Creatinine 5.72 H Lactic Acid Troponin I 0.663 H* Random Vancomycin 12/22/19 12/22/19 12/23/19 19:53 23:33 05:02 WBC Hgb Plt Count Neutrophils % (Manual) Band Neuts % (Manual) Potassium Carbon Dioxide BUN Creatinine Lactic Acid 1.6 Troponin I 0.727 H* 0.636 H* Random Vancomycin 12/23/19 12/23/19 12/24/19 05:02 23:06 05:19 WBC Hgb Plt Count Neutrophils % (Manual) 64 74 Band Neuts % (Manual) 28 H 19 H Potassium Carbon Dioxide BUN Creatinine Lactic Acid Troponin I Random Vancomycin 18.9 EKG Reviewed by me: Yes (Tele - SR) Hospitalist ROS - Medication Medications: Active Medications Generic Name Dose Route Start Last Admin Trade Name Freq PRN Reason Stop Dose Admin Allopurinol 200 mg 12/23/19 09:00 12/24/19 09:58 Zyloprim PO 200 mg DAILY JUAN ANTONIO Administration Amlodipine Besylate 10 mg 12/23/19 09:00 12/24/19 09:59 Norvasc PO 10 mg DAILY JUAN ANTONIO Administration Aspirin 325 mg 12/23/19 09:00 12/24/19 09:59 Ecotrin PO 325 mg DAILY JUAN ANTONIO Administration Carvedilol 12.5 mg 12/23/19 08:00 12/24/19 16:47 Coreg PO Not Given BID-[facility] Citalopram Hydrobromide 40 mg 12/23/19 09:00 12/24/19 09:59 Celexa PO 40 mg QAM JUAN ANTONIO Administration Famotidine 20 mg 12/23/19 09:00 12/24/19 09:59 Pepcid PO 20 mg DAILY JUAN ANTONIO Administration Cefepime HCl 0.5 gm/ 100 mls @ 200 mls/hr 12/23/19 20:00 12/23/19 20:11 Miscellaneous Medication 1 IVPB 100 mls each/ Sodium Chloride 2000 JUAN ANTONIO Administration Insulin Human Lispro 0 units 12/23/19 00:11 12/23/19 11:51 Humalog SC 2 unit .MILD SLIDING SCALE PRN Administration Mild Correctional Scale Rosuvastatin Calcium 20 mg 12/23/19 21:00 12/23/19 20:11 Crestor PO 20 mg HS JUAN ANTONIO Administration Terazosin HCl 10 mg 12/23/19 09:00 12/24/19 09:59 Hytrin PO 10 mg DAILY JUAN ANTONIO Administration - Exam General Appearance: ill appearing General - other findings: sleepy, groggy, minimal interaction Eye: PERRL, anicteric sclera ENT: normocephalic atraumatic, no oropharyngeal lesions Neck: supple, symmetric, no JVD, no thyromegaly Heart: RRR, no gallops, no rubs, normal peripheral pulses Heart - other findings: S1, S2 Respiratory: no ronchi, normal chest expansion, no tachypnea Respiratory - other findings: diminished in bases Gastrointestinal: soft, non-tender, non-distended, normal bowel sounds, no palpable masses Extremities: no cyanosis Extremities - other findings: RLE edema(chronic) Neurological: cranial nerve grossly intact, no new deficit Musculoskeletal: generalized weakness Psychiatric: oriented to person, flat affect Hosp A/P (1) Sepsis due to urinary tract infection Code(s): A41.9 - SEPSIS, UNSPECIFIED ORGANISM; N39.0 - URINARY TRACT INFECTION, SITE NOT SPECIFIED Status: Acute Plan: Continue Cefepime/Levaquin, await final Ucx sensitivities (2) Acute kidney injury superimposed on CKD Code(s): N17.9 - ACUTE KIDNEY FAILURE, UNSPECIFIED; N18.9 - CHRONIC KIDNEY DISEASE, UNSPECIFIED Status: Acute Plan: Persistent, continue supportive mgmt, avoid nephrotoxic meds and limit contrast exposure (3) NSTEMI (non-ST elevated myocardial infarction) Code(s): I21.4 - NON-ST ELEVATION (NSTEMI) MYOCARDIAL INFARCTION Status: Acute (4) Anemia in CKD (chronic kidney disease) Code(s): N18.9 - CHRONIC KIDNEY DISEASE, UNSPECIFIED; D63.1 - ANEMIA IN CHRONIC KIDNEY DISEASE Status: Chronic Plan: stable currently, no evidence of active loss (5) DM type 2 (diabetes mellitus, type 2) Status: Chronic Qualifiers: Diabetes mellitus terminal make up operator insulin use: without nursing home use Diabetes mellitus complication status: with kidney complications Diabetes mellitus complication detail: with chronic kidney disease Chronic kidney disease stage : stage 2 (mild) Qualified Code(s): E11.22 - Type 2 diabetes mellitus with diabetic chronic kidney disease; N18.2 - Chronic kidney disease, stage 2 (mild) (6) HTN (hypertension) Code(s): I10 - ESSENTIAL (PRIMARY) HYPERTENSION Status: Chronic Qualifiers: Hypertension type: essential hypertension Qualified Code(s): I10 - Essential (primary) hypertension - Plan continue antibiotics, PT/OT, social director, speech therapy, DVT proph w/SCDs Stable currently Continue supportive mgmt Continue Cefepime/Levaquin COVID-19 r/o pending Respiratory isolation AM lab: BMP, H/H
[2019-12-24] MEDS: Cefepime 0.5 GM, Admixture Fee 1 EACH in Sodium Chloride 0.9% 100 ML IVPB SCH (19:45)
[2019-12-24] MEDS: Rosuvastatin 20 MG TAB PO SCH (20:50)
[2019-12-25 01:44] LABS: Vancomycin, Random 18.7 ug/mL (See Comment)
[2019-12-25] MEDS ORDERED: Vancomycin HCl 500 MG in Sodium Chloride 0.9% 100 ML IVPB SCH (02:00)
[2019-12-25 05:35] LABS: Hemoglobin 7.7 g/dL (12.0-16.0); Platelet Count 93 thou/uL (130-400)
[2019-12-25 05:54] LABS: Anion Gap 17 mmol/L (10-20); BUN (Urea Nitrogen) 111 mg/dL (9.8-20.1); Calc. Creatinine Clearance 11 mL/min (70-130); Calcium 8.2 mg/dL (7.8-10.44); Carbon Dioxide 13 mmol/L (23-31); Chloride 115 mmol/L (98-107); Estimated GFR-MDRD 7; Potassium 4.5 mmol/L (3.5-5.1); Sodium 140 mmol/L (136-145)
[2019-12-25 05:59] LABS: Glucose 59 mg/dL (83-110)
[2019-12-25] MEDS: Dextrose 50% Abboject 50 ML SYRINGE SLOW IVP PRN ×2 (06:10→22:18)
[2019-12-25] MEDS: Terazosin HCl 5 MG CAP PO SCH (09:04)
[2019-12-25] MEDS: Citalopram 20 MG TAB PO SCH (09:04)
[2019-12-25] MEDS: Famotidine 20 MG TAB PO SCH (09:05)
[2019-12-25] MEDS: Allopurinol 100 MG TAB PO SCH (09:06)
[2019-12-25] MEDS: Amlodipine 10 MG TAB PO SCH (09:06)
[2019-12-25] MEDS: Aspirin 325 MG TAB PO SCH (11:00)
[2019-12-25] MEDS: Carvedilol 25 MG TAB PO SCH (11:14)
--- NOTE | 2019-12-25 12:06 | PDOC.HOSPP ---
- Subjective Encounter Date: 12/25/19 Encounter Time: 12:00 Subjective: f/u for sepsis due to UTI with Klebsiella spp on Cefepime/Levaquin. No new issues noted. Ruled out for COVID-19. Nursing reports low BP this am. - Objective Vital Signs & Weight: Vital Signs (12 hours) Temp Pulse Pulse Resp BP BP BP 12/25/19 11:16 96.5 F L 80 16 95/50 L 12/25/19 10:03 80 83/43 L 12/25/19 09:06 80 97/46 L 12/25/19 04:04 96.9 F L 80 20 102/68 12/25/19 00:52 97.2 F L 84 18 107/80 Pulse Ox 12/25/19 11:16 99 12/25/19 10:03 12/25/19 09:06 12/25/19 04:04 12/25/19 00:52 Weight Admit Weight 212 lb 3.2 oz Weight 212 lb 3.2 oz I&O: 12/24/19 12/25/19 12/26/19 06:59 06:59 06:59 Intake Total 120 610 Output Total 350 300 Balance -230 310 Result Diagrams: 12/25/19 05:08 12/25/19 05:08 Additional Labs: Accuchecks 12/25/19 12/25/19 12/24/19 11:04 03:37 19:57 POC Glucose 98 65 L 101 12/24/19 17:28 POC Glucose 123 H Microbiology 12/22/19 19:54 Venous blood - Right Arm Blood Culture - Preliminary Specimen has been received and culture in progress. No Growth to date. 12/22/19 19:54 Venous blood - Right Arm Blood Culture - Preliminary Presumptive Kleb/Enterobacter 12/22/19 19:53 Venous blood - Left Arm Blood Culture - Preliminary Specimen has been received and culture in progress. No Growth to date. 12/22/19 19:53 Venous blood - Left Arm Blood Culture - Preliminary Klebsiella pneumoniae Laboratory Tests 12/22/19 12/22/19 12/22/19 18:01 18:01 18:01 WBC 13.1 H Hgb 8.4 L Plt Count 110 L Neutrophils % (Manual) Band Neuts % (Manual) 37 H Potassium 5.2 H Carbon Dioxide 13 L BUN 83 H Creatinine 5.72 H Lactic Acid Troponin I 0.663 H* Random Vancomycin COVID-19 PCR 12/22/19 12/22/19 12/22/19 19:53 21:30 23:33 WBC Hgb Plt Count Neutrophils % (Manual) Band Neuts % (Manual) Potassium Carbon Dioxide BUN Creatinine Lactic Acid 1.6 Troponin I 0.727 H* Random Vancomycin COVID-19 PCR Not Detected 12/23/19 12/23/19 12/23/19 05:02 05:02 23:06 WBC Hgb Plt Count Neutrophils % (Manual) 64 Band Neuts % (Manual) 28 H Potassium Carbon Dioxide BUN Creatinine Lactic Acid Troponin I 0.636 H* Random Vancomycin 18.9 COVID-19 PCR 12/24/19 05:19 WBC Hgb 8.1 L Plt Count 83 L Neutrophils % (Manual) 74 Band Neuts % (Manual) 19 H Potassium Carbon Dioxide BUN Creatinine Lactic Acid Troponin I Random Vancomycin COVID-19 PCR EKG Reviewed by me: Yes (Tele - SR) Hospitalist ROS - Medication Medications: Active Medications Generic Name Dose Route Start Last Admin Trade Name Freq PRN Reason Stop Dose Admin Allopurinol 200 mg 12/23/19 09:00 12/25/19 09:06 Zyloprim PO 200 mg DAILY JUAN ANTONIO Administration Aspirin 325 mg 12/25/19 09:00 12/25/19 11:00 Aspirin PO 325 mg DAILY JUAN ANTONIO Administration Citalopram Hydrobromide 40 mg 12/23/19 09:00 12/25/19 09:04 Celexa PO 40 mg QAM JUAN ANTONIO Administration Dextrose/Water 25 gm 12/23/19 00:11 12/25/19 06:10 Dextrose 50% SLOW IVP 25 gm PRN PRN Administration Hypoglycemia Famotidine 20 mg 12/23/19 09:00 12/25/19 09:05 Pepcid PO 20 mg DAILY JUAN ANTONIO Administration Insulin Human Lispro 0 units 12/23/19 00:11 12/23/19 11:51 Humalog SC 2 unit .MILD SLIDING SCALE PRN Administration Mild Correctional Scale Rosuvastatin Calcium 20 mg 12/23/19 21:00 12/24/19 20:50 Crestor PO 20 mg HS JUAN ANTONIO Administration Sodium Chloride 10 ml 12/23/19 00:11 12/25/19 09:12 Flush - Normal Saline IVF 10 ml PRN PRN Administration Saline Flush Terazosin HCl 10 mg 12/23/19 09:00 12/25/19 09:04 Hytrin PO 10 mg DAILY JUAN ANTONIO Administration - Exam General Appearance: NAD, awake alert Eye: PERRL, anicteric sclera ENT: normocephalic atraumatic, no oropharyngeal lesions Neck: supple, symmetric, no JVD, no thyromegaly Heart: RRR, no gallops, no rubs, normal peripheral pulses Heart - other findings: S1, S2 Respiratory - other findings: diminished in bases Gastrointestinal: soft, non-tender, non-distended, normal bowel sounds Extremities: no cyanosis Extremities - other findings: RLE chronic edema Skin: normal turgor Neurological: no new deficit Musculoskeletal: generalized weakness Psychiatric: oriented to person Hosp A/P (1) Sepsis due to urinary tract infection Code(s): A41.9 - SEPSIS, UNSPECIFIED ORGANISM; N39.0 - URINARY TRACT INFECTION, SITE NOT SPECIFIED Status: Acute Plan: Improved, convert Levaquin 500mg po daily, d/c Cefepime/Vancomycin (2) Acute kidney injury superimposed on CKD Code(s): N17.9 - ACUTE KIDNEY FAILURE, UNSPECIFIED; N18.9 - CHRONIC KIDNEY DISEASE, UNSPECIFIED Status: Acute Plan: No improvement in renal failure, not a candidate for HD per Renal service (3) NSTEMI (non-ST elevated myocardial infarction) Code(s): I21.4 - NON-ST ELEVATION (NSTEMI) MYOCARDIAL INFARCTION Status: Acute (4) Anemia in CKD (chronic kidney disease) Code(s): N18.9 - CHRONIC KIDNEY DISEASE, UNSPECIFIED; D63.1 - ANEMIA IN CHRONIC KIDNEY DISEASE Status: Chronic Plan: Serial H/H, no active blood loss noted, multifactorial process (5) DM type 2 (diabetes mellitus, type 2) Status: Chronic Qualifiers: Diabetes mellitus fpc insulin use: without long goods drier use Diabetes mellitus complication status: with kidney complications Diabetes mellitus complication detail: with chronic kidney disease Chronic kidney disease stage : stage 2 (mild) Qualified Code(s): E11.22 - Type 2 diabetes mellitus with diabetic chronic kidney disease; N18.2 - Chronic kidney disease, stage 2 (mild) (6) HTN (hypertension) Code(s): I10 - ESSENTIAL (PRIMARY) HYPERTENSION Status: Chronic Qualifiers: Hypertension type: essential hypertension Qualified Code(s): I10 - Essential (primary) hypertension Plan: Relative hypotension, decrease Amlodipine 5mg daily, decrease Coreg 6.25mg po BID - Plan continue antibiotics, PT/OT, social psychologist, speech therapy, DVT proph w/SCDs Stable currently Continue supportive mgmt D/C Cefepime/Vancomycin Levaquin 500mg po daily COVID-19 ruled out PT/OT for functional assessment AM lab: BMP, H/H
--- NOTE | 2019-12-25 15:08 | PDOC.CPN ---
- Subjective Date: 12/25/19 Time: 15:00 Interval history: She remains confused. - Review of Systems ROS unobtainable: due to mental status - Objective Allergies/Adverse Reactions: Allergies Allergy/AdvReac Type Severity Reaction Status Date / Time No Known Allergies Allergy Verified 12/23/19 00:50 Visit Medications: Current Medications Acetaminophen (Tylenol) 650 mg PO Q4H PRN PRN Reason: Fever/Mild Pain Allopurinol (Zyloprim) 200 mg PO DAILY [facility] Last Admin: 12/25/19 09:06 Dose: 200 mg Amlodipine Besylate (Norvasc) 5 mg PO DAILY [facility] Aspirin (Aspirin) 325 mg PO DAILY [facility] Last Admin: 12/25/19 11:00 Dose: 325 mg Carvedilol (Coreg) 6.25 mg PO BID-[facility] Citalopram Hydrobromide (Celexa) 40 mg PO QAM [facility] Last Admin: 12/25/19 09:04 Dose: 40 mg Dextrose/Water (Dextrose 50%) 25 gm SLOW IVP PRN PRN PRN Reason: Hypoglycemia Last Admin: 12/25/19 06:10 Dose: 25 gm Famotidine (Pepcid) 20 mg PO DAILY [facility] Last Admin: 12/25/19 09:05 Dose: 20 mg Glucagon (Glucagon) 1 mg IM PRN PRN PRN Reason: Hypoglycemia Dextrose/Water (D5w) 1,000 mls @ 0 mls/hr IV .Q0M PRN PRN Reason: Hypoglycemia Insulin Human Lispro (Humalog) 0 units SC .MILD SLIDING SCALE PRN PRN Reason: Mild Correctional Scale Last Admin: 12/23/19 11:51 Dose: 2 unit Insulin Human Lispro (Humalog) 0 units SC .BEDTIME SLIDING SC PRN PRN Reason: Bedtime Correctional Scale Levofloxacin (Levaquin) 500 mg PO 0600 [facility] Rosuvastatin Calcium (Crestor) 20 mg PO HS [facility] Last Admin: 12/24/19 20:50 Dose: 20 mg Sodium Chloride (Flush - Normal Saline) 10 ml IVF PRN PRN PRN Reason: Saline Flush Last Admin: 12/25/19 09:12 Dose: 10 ml Terazosin HCl (Hytrin) 10 mg PO DAILY [facility] Last Admin: 12/25/19 09:04 Dose: 10 mg Vital Signs & Weight: Vital Signs Temp Pulse Pulse Resp BP BP BP 12/25/19 11:16 96.5 F L 80 16 12/25/19 10:04 97/46 L 83/43 L 12/25/19 10:03 80 83/43 L 12/25/19 09:06 80 97/46 L 12/25/19 04:04 96.9 F L 80 20 BP Pulse Ox 12/25/19 11:16 95/50 L 99 12/25/19 10:04 12/25/19 10:03 12/25/19 09:06 12/25/19 04:04 102/68 Admit Weight 212 lb 3.2 oz Weight 212 lb 3.2 oz - Physical Exam General: no apparent distress HEENT: normocephaly Neck: supple neck Cardiac: regular rate and rhythm Lungs: normal breath sounds Neuro: no lateralizing findings Abdomen: active bowel sounds Extremities: 1+ LE edema Skin: clear Musculoskeletal: no pain - Labs Result Diagrams: 12/25/19 05:08 12/25/19 05:08 Troponin/CKMB CK-MB (CK-2) 3.6 ng/mL (0-6.6) 12/22/19 23:33 Troponin I 0.636 ng/mL (< 0.028) H* 12/23/19 05:02 - Telemetry Sinus rhythms and dysrhythmias: sinus rhythm - Assessment/Plan Assessment/Plan: 1. NSTEMI, demand ischemia, Type CA. 2. UTI sepsis 3. Diastolic CHF, improved. 4. Dementia PLAN: - Conservative therapy from cardiac perspective. - Abx per primary team - Will sign off. Please call with any questions.
--- NOTE | 2019-12-25 17:14 | PRG ---
DATE OF SERVICE: 12/25/2019 OBJECTIVE: GENERAL: An elderly female, in no apparent distress. VITAL SIGNS: Temperature 97.5, pulse 82, respiratory rate 18, blood pressure 94/54. LABORATORY DATA: Potassium 4.5, BUN is 111, creatinine is 5.8. ASSESSMENT AND PLAN: 1. Acute kidney injury on chronic kidney disease, stage 5 with no improvement and poor prognosis. 2. Advanced dementia. 3. Hyperkalemia. 4. Acidosis. 5. Chronic anemia. 6. Hypertension. The patient is not a good candidate for dialysis. No acute indication for dialysis, and we will continue to monitor. Continue discussion for clarification of goals of care with family. We will follow. Job ID: [id number]
[2019-12-25] MEDS: Aspirin 325 mg Enteric Coated Tablet PO SCH (18:39)
[2019-12-25] MEDS: Carvedilol 6.25 MG TAB PO SCH (18:40)
[2019-12-25] MEDS: Rosuvastatin 20 MG TAB PO SCH (20:37)
[2019-12-26] MEDS ORDERED: Sodium Chloride 0.9% 500 ML IVPB SCH (05:30)
[2019-12-26] MEDS: Dextrose 50% Abboject 50 ML SYRINGE SLOW IVP PRN (05:54)
[2019-12-26 06:27] LABS: Hemoglobin 7.5 g/dL (12.0-16.0); Platelet Count 78 thou/uL (130-400)
[2019-12-26 06:46] LABS: Anion Gap 18 mmol/L (10-20); BUN (Urea Nitrogen) 119 mg/dL (9.8-20.1); Calc. Creatinine Clearance 10 mL/min (70-130); Calcium 7.6 mg/dL (7.8-10.44); Carbon Dioxide 11 mmol/L (23-31); Chloride 117 mmol/L (98-107); Estimated GFR-MDRD 6; Potassium 4.9 mmol/L (3.5-5.1); Sodium 141 mmol/L (136-145)
[2019-12-26 06:54] LABS: Glucose 34 mg/dL (83-110)
--- NOTE | 2019-12-26 08:11 | PDOC.HOSPP ---
- Subjective Encounter Date: 12/26/19 Encounter Time: 10:30 Subjective: Patient less responsive this AM, BP low with hypoglycemia so started on D5NS at 50mL/hr, still low so I came to evaluate. Patient minimally responsive, does grimace to pain. - Objective Vital Signs & Weight: Vital Signs (12 hours) Temp Pulse Resp BP BP BP BP 12/26/19 07:38 86 20 12/26/19 07:27 12/26/19 06:28 94/51 L 12/26/19 04:53 90/42 L 12/26/19 03:54 97.2 F L 83 20 69/45 L 12/26/19 00:10 97.5 F L 87 20 90/44 L Pulse Ox 12/26/19 07:38 98 12/26/19 07:27 97 12/26/19 06:28 12/26/19 04:53 12/26/19 03:54 97 12/26/19 00:10 99 Weight Admit Weight 212 lb 3.2 oz Weight 212 lb 3.2 oz I&O: 12/25/19 12/26/19 12/27/19 06:59 06:59 06:59 Intake Total 610 800 Output Total 300 325 Balance 310 475 Result Diagrams: 12/26/19 05:52 12/26/19 05:52 Additional Labs: Accuchecks 12/26/19 12/26/19 12/25/19 06:29 00:29 22:15 POC Glucose 153 H 114 H 57 L* 12/25/19 12/25/19 17:35 11:04 POC Glucose 68 L 98 Hospitalist ROS - Review of Systems ROS unobtainable: due to mental status - Medication Medications: Active Medications Generic Name Dose Route Start Last Admin Trade Name Freq PRN Reason Stop Dose Admin Allopurinol 200 mg 12/23/19 09:00 12/25/19 09:06 Zyloprim PO 200 mg DAILY JUAN ANTONIO Administration Aspirin 325 mg 12/25/19 09:00 12/25/19 11:00 Aspirin PO 325 mg DAILY JUAN ANTONIO Administration Carvedilol 6.25 mg 12/25/19 17:00 12/25/19 18:40 Coreg PO Not Given BID-[facility] Citalopram Hydrobromide 40 mg 12/23/19 09:00 12/25/19 09:04 Celexa PO 40 mg QAM JUAN ANTONIO Administration Dextrose/Water 25 gm 12/23/19 00:11 12/26/19 05:54 Dextrose 50% SLOW IVP 25 gm PRN PRN Administration Hypoglycemia Famotidine 20 mg 12/23/19 09:00 12/25/19 09:05 Pepcid PO 20 mg DAILY JUAN ANTONIO Administration Insulin Human Lispro 0 units 12/23/19 00:11 12/23/19 11:51 Humalog SC 2 unit .MILD SLIDING SCALE PRN Administration Mild Correctional Scale Levofloxacin 500 mg 12/26/19 06:00 12/26/19 05:37 Levaquin PO 500 mg 0600 JUAN ANTONIO Administration Rosuvastatin Calcium 20 mg 12/23/19 21:00 12/25/19 20:37 Crestor PO 20 mg HS JUAN ANTONIO Administration Sodium Chloride 10 ml 12/23/19 00:11 12/25/19 22:18 Flush - Normal Saline IVF 10 ml PRN PRN Administration Saline Flush Terazosin HCl 10 mg 12/23/19 09:00 12/25/19 09:04 Hytrin PO 10 mg DAILY JUAN ANTONIO Administration - Exam General - other findings: somnolent, minimally responsive to pain stimulation Heart: RRR, no murmur, no gallops, no rubs Respiratory: CTAB, no wheezes, no rales, no ronchi Respiratory - other findings: mildly increased WOB Gastrointestinal: soft, non-tender Psychiatric: somnolent Hosp A/P (1) Sepsis due to urinary tract infection Code(s): A41.9 - SEPSIS, UNSPECIFIED ORGANISM; N39.0 - URINARY TRACT INFECTION, SITE NOT SPECIFIED Status: Acute (2) Bacteremia Code(s): R78.81 - BACTEREMIA Status: Acute (3) Hypotension Status: Acute Plan: due to sepsis (4) Type 2 acute myocardial infarction Code(s): I21.A1 - MYOCARDIAL INFARCTION TYPE 2 Status: Acute (5) DM type 2 (diabetes mellitus, type 2) Status: Chronic Qualifiers: Diabetes mellitus fpc insulin use: without intermediate school teacher use Diabetes mellitus complication status: with kidney complications Diabetes mellitus complication detail: with chronic kidney disease Chronic kidney disease stage : stage 2 (mild) Qualified Code(s): E11.22 - Type 2 diabetes mellitus with diabetic chronic kidney disease; N18.2 - Chronic kidney disease, stage 2 (mild) (6) Hypoglycemia Code(s): E16.2 - HYPOGLYCEMIA, UNSPECIFIED Status: Acute Plan: due to sepsis (7) Acute renal failure superimposed on stage 5 chronic kidney disease, not on chronic dialysis Code(s): N17.9 - ACUTE KIDNEY FAILURE, UNSPECIFIED; N18.5 - CHRONIC KIDNEY DISEASE, STAGE 5 Status: Acute (8) Dyslipidemia Code(s): E78.5 - HYPERLIPIDEMIA, UNSPECIFIED Status: Chronic (9) HTN (hypertension) Code(s): I10 - ESSENTIAL (PRIMARY) HYPERTENSION Status: Chronic Qualifiers: Hypertension type: essential hypertension Qualified Code(s): I10 - Essential (primary) hypertension (10) Diastolic congestive heart failure Code(s): I50.30 - UNSPECIFIED DIASTOLIC (CONGESTIVE) HEART FAILURE Status: Chronic Qualifiers: Heart failure chronicity: chronic Qualified Code(s): I50.32 - Chronic diastolic (congestive) heart failure - Plan continue antibiotics, PT/OT, social sciences instructor, speech therapy, DVT proph w/SCDs low blood sugar and low BP overnight, virtually no po intake, Bolusing fluids, will start pressors and move to ICU if BP won't come up Hold BP meds Continue supportive mgmt D/C'd Cefepime/Vancomycin Levaquin 500mg po q48 hours for renal dosing COVID-19 ruled out PT/OT for functional assessment AM lab: BMP, H/H Patient has poor prognosis Spoke with son Noah Carr and he confirmed that patient if full code for now though with discuss with brother. I tried to call Kodak Carr the younger brother who was cable television program director most recently and left message on his phone to call back. Noah Carr- [phone] Mehdi Carr- [phone]
[2019-12-26] MEDS ORDERED: Dextrose 5 % And 0.9 % NaCl 1,000 ML IV SCH (08:15)
[2019-12-26] MEDS ORDERED: Amlodipine 10 MG TAB PO SCH (09:00)
[2019-12-26] MEDS ORDERED: Sodium Chloride 0.9% 500 ML IV SCH (10:45)
[2019-12-26] MEDS: Carvedilol 6.25 MG TAB PO SCH (10:56)
[2019-12-26] MEDS: Famotidine 20 MG TAB PO SCH (10:58)
[2019-12-26] MEDS: Citalopram 20 MG TAB PO SCH (10:58)
[2019-12-26] MEDS: Allopurinol 100 MG TAB PO SCH (10:58)
[2019-12-26] MEDS: Aspirin 325 MG TAB PO SCH (10:58)
[2019-12-26] MEDS: Terazosin HCl 5 MG CAP PO SCH (10:59)
[2019-12-26] MEDS ORDERED: Hydrocortisone Sod Succ/PF 100 mg/2 ml Vial IVP SCH (11:00)
[2019-12-26] MEDS ORDERED: Vancomycin 1 GM in Premix Bag 1 BAG IVPB SCH ×2 (11:15→21:00)
[2019-12-26] MEDS ORDERED: HOLD VANCOMYCIN FOR LEVEL >20 FS SCH (11:15)
[2019-12-26] MEDS ORDERED: Vancomycin HCl 500 MG in Sodium Chloride 0.9% 100 ML IVPB SCH (11:15)
[2019-12-26] MEDS ORDERED: Vancomycin Sliding Scale 1 EACH FS SCH (11:15)
[2019-12-26] MEDS ORDERED: Vancomycin HCl 1.25 GM in Sodium Chloride 0.9% 250 ML 250 ML IVPB SCH (11:15)
[2019-12-26] MEDS ORDERED: Vancomycin HCl 750 MG in Sodium Chloride 0.9% 250 ML 250 ML IVPB SCH (11:15)
[2019-12-26] MEDS: Cefepime 0.5 GM in Sodium Chloride 0.9% 100 ML IVPB SCH (11:20)
--- NOTE | 2019-12-26 11:36 | RAD ---
EXAM: CHEST ONE VIEW HISTORY: Sepsis COMPARISON: 12/22/2019 FINDINGS: Patient is rotated to the right which accentuates the cardiac silhouette. There is mild increase in p erihilar interstitial densities with patchy parenchymal densities at each lung base. Findings could be related to developing infectious process. Follow-up to resolution is recommended. Blunting of the right lateral costophrenic angle is present suggesting tiny right pleural effusion. Patchy increased density left lung base could be related to left pleural fluid versus atelectasis or infiltr ate. No other interval change. IMPRESSION: Patchy increased parenchymal densities at each lung base which were not present on prior exam. In add ition, there is mild prominence of the interstitial markings which could be accentuated due to patient rotation. However, the patchy parenchymal densities at each lung base are worrisome for devel oping infectious process. Follow-up to resolution is recommended. Tiny right pleural effusion with questionable tiny left pleural effusion.
[2019-12-26] MEDS ORDERED: Norepinephrine 8 MG/0.9% NS 250 ML IVPB SCH (11:45)
[2019-12-26] MEDS: Sodium Chloride 0.9% 1,000 ML IV SCH (12:00)
[2019-12-26 12:19] LABS: Actual Bicarbonate (HCO3a) 10.5 mEq/L (22-28); Base Excess (BEa) -16.8 mEq/L (-2.0 to +3.0); CO2 Tension 30.3 mmHg (35.0-45.0); Calcium, Ionized 1.12 mmol/L (1.12-1.30); Carboxyhemoglobin (COHb) 1.3 gm% (0.0-3.0); Hemoglobin (Hb) 7.1 g/dL (12.0-16.0); O2 Tension (PaO2) 95.3 mmHg (> 60.0); Potassium - ABG Lab 4.98 mmol/L (3.70-5.30)
[2019-12-26 12:20] LABS: Puncture Site LB; pH, Arterial 7.16 (7.35-7.45)
[2019-12-26] MEDS ORDERED: Sodium Bicarb 50 MEQ/50 ML Abboject 8.4% SYRINGE ONE (12:30)
[2019-12-26] MEDS: Sodium Bicarbonate 150 MEQ in Dextrose 5% in Water 1,000 ML IV SCH ×2 (12:30→22:19)
[2019-12-26] MEDS: Norepinephrine 8 MG in Dextrose 5% in Water 242 ML IVPB PRN ×3 (12:30→22:21)
[2019-12-26] MEDS ORDERED: Sodium Bicarb 50 MEQ/50 ML Abboject 8.4% SYRINGE IVP SCH (12:45)
[2019-12-26] MEDS ORDERED: EPINEPHrine 1 MG/10 ML Abboject SYRINGE ONE (12:56)
[2019-12-26] MEDS ORDERED: Ventilator Sedation Protocol 1 EACH FS SCH (13:18)
[2019-12-26] MEDS ORDERED: DISCONTINUE PREVIOUS NARCOTIC PAIN MEDICATIONS AND BENZODIAZEPINES FS SCH (13:22)
[2019-12-26] MEDS ORDERED: fentaNYL Citrate/PF 2,000 MCG in Sodium Chloride 0.9% 60 ML IV SCH (13:22)
[2019-12-26] MEDS ORDERED: Fentanyl BOLUS 250 ML IVPB PRN (13:22)
[2019-12-26] MEDS ORDERED: Propofol BOLUS 1,000 MG/100 ML VIAL IV PRN (13:22)
[2019-12-26] MEDS ORDERED: Propofol 1,000 MG/100 ML VIAL IV PRN (13:22)
[2019-12-26] MEDS ORDERED: Sodium Chloride 0.9% 1,000 ML IV SCH (13:30)
[2019-12-26] MEDS: Hydrocortisone Sod Succ/PF 100 mg/2 ml Vial IVP SCH ×3 (14:13→23:19)
[2019-12-26 14:17] LABS: Base Excess (BEa) -15.3 mEq/L (-2.0 to +3.0); CO2 Tension 27.8 mmHg (35.0-45.0); Calcium, Ionized 1.02 mmol/L (1.12-1.30); Carboxyhemoglobin (COHb) 1.7 gm% (0.0-3.0); Hemoglobin (Hb) 7.4 g/dL (12.0-16.0); O2 Tension (PaO2) 165.6 mmHg (> 60.0); Potassium - ABG Lab 5.04 mmol/L (3.70-5.30)
[2019-12-26 14:18] LABS: Puncture Site ALINE; pH, Arterial 7.22 (7.35-7.45)
--- NOTE | 2019-12-26 14:18 | CON ---
DATE OF CONSULTATION: 12/26/2019 This is 1-hour critical care time and does not include time spent performing procedures, which are dictated separately. CONSULTING PHYSICIAN: Jerald Alexis MD REASON FOR CONSULTATION: Hypotension and respiratory failure. HISTORY OF PRESENT ILLNESS: This patient is an 84-year-old female, who was admitted to hospital on 12/22/2019. She is a [facility] [place]. She has a history of congestive heart failure. She was not oriented or alert as I was examining her. During the day today, she has been developing hypotension. She also has advanced renal insufficiency and is currently being seen by Dr. Waters. Upon my arrival on the unit, she had almost undetectable blood pressure. We treated her with serial doses of epinephrine and then placed a central line, arterial line, and then intubated the patient. She was initially acidotic with a pH of 7.15. PAST MEDICAL HISTORY: 1. Hypertension. 2. Hyperlipidemia. 3. Arthritis. 4. Diabetes mellitus type 2. 5. Congestive heart failure with diastolic dysfunction. 6. Chronic kidney disease stage 5. 7. Dementia. 8. Acute ischemic stroke. PAST SURGICAL HISTORY: 1. Cholecystectomy. 2. Hysterectomy. FAMILY MEDICAL HISTORY: Remarkable for cancer. SOCIAL HISTORY: She is . Do not know about alcohol, tobacco, or illicit drug use in the past. ALLERGIES: NONE. MEDICATIONS: Prior to admission; 1. Acetaminophen. 2. Allopurinol. 3. Amlodipine. 4. Atorvastatin. 5. Buspirone. 6. Carvedilol. 7. Citalopram. 8. Famotidine. 9. Glipizide. 10. Hydrochlorothiazide. 11. Lisinopril. 12. Glimepiride. 13. Ondansetron. 14. Sertraline. 15. Terazosin. 16. Triamcinolone cream. REVIEW OF SYSTEMS: Cannot be obtained secondary to the patient's altered mental status. CURRENT INPATIENT MEDICATIONS: Include; 1. Allopurinol. 2. Aspirin. 3. Carvedilol. 4. Famotidine. 5. Vancomycin. 6. Solu-Cortef. 7. Insulin. 8. Norepinephrine. 9. Terazosin. 10. Vancomycin. PHYSICAL EXAMINATION: VITAL SIGNS: Heart rate 91, blood pressure 71/31, O2 saturation 100%, respiratory rate 25, and temperature 96.6. GENERAL: This is an elderly female, who is in respiratory distress. She has altered mental status and almost a nonpalpable blood pressure throughout. HEENT: Pupils reactive. She has poor oral dentition. NECK: No adenopathy or JVD. LUNGS: She has diminished breath sounds throughout. No wheezing. CARDIOVASCULAR: S1 and S2. Regular. ABDOMEN: Morbidly obese, soft, and nontender. EXTREMITIES: No clubbing, cyanosis, or edema. LABORATORY DATA: Hemoglobin 7.5, hematocrit 24.0, platelet count 78, and white blood cell count last measured at 7.6. Sodium 141, potassium 4.9, chloride 117, CO2 of 11, BUN 119, creatinine 6.6, and glucose 34. A pH of 7.16, pCO2 of 30, and pO2 of 95, that was on 3 L. She is COVID negative. Her x-ray shows cardiomegaly with bilateral effusions. ASSESSMENT: 1. Altered mental status - likely metabolic encephalopathy. 2. Acute on chronic renal failure. 3. Hypotension, which is likely multifactorial. Could be from septic shock. Could be from relative adrenal insufficiency. Could also be from cardiogenic causes. PLAN: 1. The patient will be monitored with an arterial line. Central line has been placed for the purpose of administrating vasopressors. 2. She will be intubated for airway protection as she is having a hard time compensating for metabolic acidosis and she has altered mental status. 3. Continue antibiotics. 4. She has been empirically started on steroids. 5. Bicarbonate drip. 6. Consideration of dialysis if she improves. 7. Dr. Bruce spoke with the family, who wished that the patient remain a full code at this time. Job ID: [id number]
[2019-12-26] MEDS: EPINEPHrine 4 MG in Dextrose 5% in Water 250 ML IV SCH ×2 (16:30→20:27)
--- NOTE | 2019-12-26 17:54 | PRG ---
DATE OF SERVICE: 12/26/2019 SUBJECTIVE: The patient was seen and examined in the ICU. Son was at the bedside. She got intubated today. OBJECTIVE: GENERAL: This is an elderly female, intubated. VITAL SIGNS: Temperature 94.1, pulse 77, respiratory rate 25, and blood pressure 66/52. HEENT: Intubated. CVS: S1 and S2 heard. RESPIRATORY: Clear. GI: Abdomen is soft. MUSCULOSKELETAL: 1+ edema. NEUROLOGICAL: Intubated. LABORATORY DATA: Potassium 4.9, bicarb is 11, BUN is 119, and creatinine is 6.6. ASSESSMENT AND PLAN: 1. Acute kidney injury on chronic kidney disease, stage 5, worsening. Not a candidate for dialysis due to advanced dementia. 2. Advanced dementia. 3. Hyperkalemia. 4. Acidosis. 5. Chronic anemia. Prognosis, guarded. Not a candidate for dialysis. Family understands. We will continue supportive care. Job ID: [id number]
[2019-12-26] MEDS ORDERED: Albumin 25% 100 ML ONE (18:50)
[2019-12-26] MEDS ORDERED: Albumin 25% 25 GM/100 ML BOT IVPB SCH (19:00)
[2019-12-26] MEDS: HumaLOG 300 UNITS/3 ML VIAL SC PRN (19:01)
[2019-12-26 19:02] LABS: Actual Bicarbonate (HCO3a) 10.7 mEq/L (22-28); Calcium, Ionized 0.94 mmol/L (1.12-1.30); Carboxyhemoglobin (COHb) 0.8 gm% (0.0-3.0); Hemoglobin (Hb) 6.8 g/dL (12.0-16.0); Potassium - ABG Lab 5.31 mmol/L (3.70-5.30); pH, Arterial 7.32 (7.35-7.45)
[2019-12-26 19:04] LABS: CO2 Tension 21.2 mmHg (35.0-45.0); Puncture Site ALINE
[2019-12-26] MEDS: Rosuvastatin 20 MG TAB PO SCH (20:07)
[2019-12-26] MEDS ORDERED: Calcium Gluc 4.6 MEQ/10 ML (100 MG/ML) SLOW IVP SCH (20:15)
[2019-12-26] MEDS: VASOSTRICT 40 UNIT in Sodium Chloride 0.9% 100 ML IV SCH (20:26)
[2019-12-26] MEDS ORDERED: VANCOMYCIN IVPB SCH (21:00)
[2019-12-27] MEDS: HumaLOG 300 UNITS/3 ML VIAL SC PRN (01:12)
[2019-12-27 01:13] LABS: Vancomycin, Trough 19.4 ug/mL
[2019-12-27] MEDS ORDERED: Vancomycin HCl 750 MG in Sodium Chloride 0.9% 250 ML 250 ML IVPB SCH (01:30)
[2019-12-27] MEDS ORDERED: HOLD VANCOMYCIN FOR LEVEL >20 FS SCH (01:30)
[2019-12-27] MEDS ORDERED: Vancomycin HCl 1.25 GM in Sodium Chloride 0.9% 250 ML 250 ML IVPB SCH (01:30)
[2019-12-27] MEDS ORDERED: Vancomycin 1 GM in Premix Bag 1 BAG IVPB SCH (01:30)
[2019-12-27] MEDS: EPINEPHrine 4 MG in Dextrose 5% in Water 250 ML IV SCH ×2 (01:32→05:41)
[2019-12-27] MEDS: Norepinephrine 8 MG in Dextrose 5% in Water 242 ML IVPB PRN ×3 (02:29→10:38)
[2019-12-27] MEDS: Sodium Chloride 0.9% 1,000 ML IV SCH ×2 (02:30→17:48)
[2019-12-27 03:38] LABS: Hemoglobin 8.9 g/dL (12.0-16.0); Mean Corpuscular HGB CONC 32.9 g/dL (32.0-36.0); Mean Corpuscular Hemoglobin 31.1 pg (27.0-31.0); Mean Corpuscular Volume 94.6 fL (78.0-98.0); Mean Platelet Volume 11.7 fL (7.4-10.4); Platelet Count 102 thou/uL (130-400); RBC Distribution Width 15.5 % (11.5-14.5); Red Blood Cell (RBC) Count 2.86 mill/uL (4.20-5.40); White Blood Cell (WBC) Count 19.1 thou/uL (4.8-10.8)
[2019-12-27 03:39] LABS: Band 7 % (5-11); Eosinophils 1 % (0-10); Hypochromia SLIGHT = 6-15 cells (100X) (0-5/hpf); Lymphocytes 3 % (21-51); MDiff Complete? YES; Metamyelocyte 1 % (0-0); Monocytes 12 % (0-10); Neutrophil 76 % (42-75); Nucleated RBC 1 % (0); Platelet Morphology Comment Appears Decreased
[2019-12-27 03:41] LABS: Anion Gap 22 mmol/L (10-20); BUN (Urea Nitrogen) 111 mg/dL (9.8-20.1); Calc. Creatinine Clearance 10 mL/min (70-130); Calcium 6.6 mg/dL (7.8-10.44); Carbon Dioxide 11 mmol/L (23-31); Chloride 107 mmol/L (98-107); Estimated GFR-MDRD 6; Glucose 464 mg/dL (83-110); Potassium 5.6 mmol/L (3.5-5.1); Sodium 134 mmol/L (136-145)
[2019-12-27] MEDS ORDERED: Calcium Gluc 4.6 MEQ/10 ML (100 MG/ML) SLOW IVP SCH ×2 (04:30→07:45)
[2019-12-27 04:37] LABS: ALT (SGPT) 712 U/L (8-55); AST (SGOT) 1598 U/L (5-34); Albumin 2.1 g/dL (3.4-4.8); Alkaline Phosphatase 547 U/L (40-110); Bilirubin, Total 2.5 mg/dL (0.2-1.2); Globulin 2.6 g/dL (2.4-3.5); Magnesium 1.7 mg/dL (1.6-2.6); Phosphorus 6.4 mg/dL (2.3-4.7); Protein, Total 4.7 g/dL (6.0-8.3)
[2019-12-27] MEDS: HUMULIN R 100 UNITS in Sodium Chloride 0.9% 100 ML IVPB SCH ×2 (04:39→09:26)
[2019-12-27] MEDS: Hydrocortisone Sod Succ/PF 100 mg/2 ml Vial IVP SCH ×4 (05:12→23:13)
--- NOTE | 2019-12-27 05:15 | OP ---
DATE OF PROCEDURE: 12/26/2019 PROCEDURE PERFORMED: Right femoral central line placement. PREOPERATIVE DIAGNOSIS: Poor IV access sick. POSTOPERATIVE DIAGNOSIS: Successful right femoral central line placement. ANESTHESIA: 1% lidocaine without epinephrine. DESCRIPTION OF PROCEDURE: The area was first surveyed with ultrasound to identify the vein and artery. Chlorhexidine was used to scrub the operative site and it was draped sterilely. Using modified Seldinger technique, the right femoral vein was entered on the first attempt and a wire was passed. The needle was removed and a small incision was made next to the wire. The vessel was dilated with a dilator. A triple-lumen catheter was then passed over the wire and the wire was removed. Three ports flushed of venous blood. The line was sutured into position and dressing was applied. Job ID: [id number]
--- NOTE | 2019-12-27 05:18 | OP ---
DATE OF PROCEDURE: 12/26/2019 PROCEDURE PERFORMED: Right femoral arterial line placement. PREOPERATIVE DIAGNOSIS: Sustained hypotension. POSTOPERATIVE DIAGNOSIS: Successful right femoral arterial line placement. ANESTHESIA: 1% lidocaine without epinephrine. DESCRIPTION OF PROCEDURE: Using the same prep as for the central line, the right femoral artery was cannulated with a needle and a wire was passed into the arterial vessel on the first stick. The needle was removed and the arterial line was placed over the wire. The wire was then removed. The arterial line was hooked to a transducer, which showed a good arterial waveform. The patient tolerated the procedure well. Job ID: [id number]
[2019-12-27 06:45] LABS: Actual Bicarbonate (HCO3a) 11.4 mEq/L (22-28); Base Excess (BEa) -13.8 mEq/L (-2.0 to +3.0); Carboxyhemoglobin (COHb) 0.3 gm% (0.0-3.0); Hemoglobin (Hb) 9.3 g/dL (12.0-16.0); O2 Tension (PaO2) 127.6 mmHg (> 60.0); Potassium - ABG Lab 4.54 mmol/L (3.70-5.30); pH, Arterial 7.28 (7.35-7.45)
[2019-12-27 06:49] LABS: ALV-art Gradient 198.275 (0-20); CO2 Tension 24.5 mmHg (35.0-45.0); Puncture Site ALINE
[2019-12-27] MEDS: Aspirin 325 MG TAB PO SCH (07:52)
[2019-12-27] MEDS: Famotidine 20 MG TAB PO SCH (07:52)
[2019-12-27] MEDS: Citalopram 20 MG TAB PO SCH (07:53)
[2019-12-27] MEDS: Terazosin HCl 5 MG CAP PO SCH (07:54)
--- NOTE | 2019-12-27 08:41 | PRG ---
DATE OF SERVICE: 12/27/2019 A 35 minutes of critical care time. SUBJECTIVE: This patient remains intubated on mechanical ventilation. She is on multiple vasopressors include epinephrine, norepinephrine, and vasopressin. Unfortunately, she has not made any improvement overnight and is in fact far worse. She is having episodes of tetany or myoclonus. OBJECTIVE: VITAL SIGNS: Temperature 99.3, pulse in the 60s, blood pressure 81/30 via art-line, currently on 30 mcg/minute of norepinephrine, 0.04 units/minute of vasopressin, and 50 mcg/minute of epinephrine. Also on a bicarbonate drip, D5W with 3 amps of sodium bicarbonate at 100 mL/h. I found her able to move to stimulation, but unresponsive to questions. HEENT: Otherwise, unremarkable. NECK: No JVD. LUNGS: Coarse breath sounds. CARDIOVASCULAR: S1 and S2. Regular. ABDOMEN: Tender to palpation. EXTREMITIES: Edematous. LABORATORY DATA: ABG; pH of 7.28, pCO2 of 24, and pO2 of 127. Sodium 134, potassium 5.6, chloride 107, CO2 of 11, BUN 111, creatinine 6.5, glucose 464, AST 1598, ALT 712, and alkaline phosphatase 547. White count 19, hematocrit 27.1, and platelet count 102. Calcium level is 6.4. X-ray shows proper ET tube placement, actually fairly clear lung schmidt. ASSESSMENT: 1. Unrelenting septic shock. Looking at the overall clinical picture, I suspect the lady probably has had a massive bowel infarction. The fact that she is not responding to vasopressors and in fact, does not even become tachycardic to epinephrine is a very poor sign. 2. On top of this, she has severe electrolyte issues including hypocalcemia. 3. Acute respiratory failure requiring mechanical ventilation. RECOMMENDATIONS: I see no chance of this patient surviving illness and I would recommend extubation and comfort care. I do not see anything to change with current interventions. The patient is now basically DNR. I will speak with family when they arrive. Job ID: [id number]
--- NOTE | 2019-12-27 08:46 | PDOC.HOSPP ---
- Subjective Encounter Date: 12/27/19 Encounter Time: 11:00 non-verbal Subjective: Patient continuing to decline on maximum pressors. - Objective Vital Signs & Weight: Vital Signs (12 hours) Pulse Resp BP 12/27/19 06:37 70 115/54 L 12/27/19 05:54 26 H 12/27/19 04:50 67 12/27/19 04:00 27 H 12/27/19 02:00 29 H 12/27/19 00:00 28 H 12/26/19 22:36 70 89/62 L 12/26/19 22:00 29 H Weight Admit Weight 221 lb 9.033 oz Weight 235 lb 14.314 oz Most Recent Monitor Data Heart Rate from ECG 69 NIBP 123/54 NIBP BP-Mean 77 Respiration from ECG 25 SpO2 100 I&O: 12/26/19 12/27/19 12/28/19 06:59 06:59 06:59 Intake Total 800 7220.4 Output Total 325 170 Balance 475 7050.4 Result Diagrams: 12/27/19 03:00 12/27/19 03:00 Additional Labs: Accuchecks 12/27/19 12/27/19 12/26/19 06:43 05:48 18:50 POC Glucose 432 H 466 H 256 H 12/26/19 12/26/19 12/26/19 14:17 11:07 10:35 POC Glucose 124 H 80 87 12/26/19 05:55 POC Glucose 42 L* Hospitalist ROS - Review of Systems ROS unobtainable: due to endotracheal tube - Medication Medications: Active Medications Generic Name Dose Route Start Last Admin Trade Name Prasanna PRN Reason Stop Dose Admin Aspirin 325 mg 12/25/19 09:00 12/27/19 07:52 Aspirin PO 325 mg DAILY JUAN ANTONIO Administration Calcium Gluconate 9.2 meq 12/27/19 07:45 12/27/19 07:54 Calcium Gluconate SLOW IVP 12/27/19 10:00 9.2 meq NOW JUAN ANTONIO Administration Carvedilol 6.25 mg 12/25/19 17:00 12/26/19 10:56 Coreg PO Not Given BID-WM JUAN ANTONIO Citalopram Hydrobromide 40 mg 12/23/19 09:00 12/27/19 07:53 Celexa PO Not Given QAM JUAN ANTONIO Dextrose/Water 25 gm 12/23/19 00:11 12/26/19 05:54 Dextrose 50% SLOW IVP 25 gm PRN PRN Administration Hypoglycemia Famotidine 20 mg 12/23/19 09:00 12/27/19 07:52 Pepcid PO 20 mg DAILY JUAN ANTONIO Administration Hydrocortisone Sodium Succinate 50 mg 12/26/19 12:00 12/27/19 05:12 Solu-Cortef IVP 50 mg Q6HR JUAN ANTONIO Administration Cefepime HCl 0.5 gm/ Sodium 100 mls @ 200 mls/hr 12/26/19 12:00 12/26/19 11: 20 Chloride IVPB 100 mls Q24HR JUAN ANTONIO Administration Vancomycin HCl 500 mg/ Sodium 100 mls @ 100 mls/hr 12/26/19 11:15 12/27/19 01 :32 Chloride IVPB 100 mls WILLCALL JUAN ANTONIO Administration Norepinephrine Bitartrate 8 mg 250 mls @ 0 mls/hr 12/26/19 11:39 12/27/19 05: 41 / Dextrose/Water IVPB 250 mls INF PRN Administration TO MAINTAIN MAP > 65 Protocol As Directed Sodium Bicarbonate 150 meq/ 1,150 mls @ 100 mls/hr 12/26/19 12:45 12/26/19 22 :19 Dextrose/Water IV 1,150 mls INF JUAN ANTONIO Administration Sodium Chloride 1,000 mls @ 70 mls/hr 12/26/19 13:30 12/27/19 02:30 Normal Saline 0.9% IV 1,000 mls .[id number] JUAN ANTONIO Administration Epinephrine 4 mg/ Dextrose/ 254 mls @ 0 mls/hr 12/26/19 14:15 12/27/19 05:41 Water IV 254 mls INF JUAN ANTONIO Administration Protocol Titrate Vasopressin 40 unit/ 102 mls @ 0 mls/hr 12/26/19 20:15 12/26/19 20:26 Miscellaneous Medication 1 IV 102 mls each/ Sodium Chloride INF JUAN ANTONIO Administration Protocol As Directed Insulin Human Regular 100 101 mls @ 0 mls/hr 12/27/19 04:30 12/27/19 04:39 units/ Sodium Chloride IVPB 101 mls INF JUAN ANTONIO Administration Protocol Titrate Insulin Human Lispro 0 units 12/23/19 00:11 12/27/19 01:12 Humalog SC 6 unit .MILD SLIDING SCALE PRN Administration Mild Correctional Scale Rosuvastatin Calcium 20 mg 04/15/20 21:00 12/26/19 20:07 Crestor PO Not Given HS JUAN ANTONIO Sodium Chloride 10 ml 12/23/19 00:11 12/25/19 22:18 Flush - Normal Saline IVF 10 ml PRN PRN Administration Saline Flush Terazosin HCl 10 mg 12/23/19 09:00 12/27/19 07:54 Hytrin PO Not Given DAILY JUAN ANTONIO - Exam General Appearance: ill appearing General - other findings: minimally responsive on the vent Heart: RRR Respiratory - other findings: coarse breath sounds bilaterally Gastrointestinal: diminished bowl sounds Gastrointestinal - other findings: tenses up to palpation of the abdomen Psychiatric - other findings: minimally responsive to pain on the vent Hosp A/P (1) Sepsis due to urinary tract infection Code(s): A41.9 - SEPSIS, UNSPECIFIED ORGANISM; N39.0 - URINARY TRACT INFECTION, SITE NOT SPECIFIED Status: Acute (2) Bacteremia Code(s): R78.81 - BACTEREMIA Status: Acute (3) Hypotension Status: Acute (4) Type 2 acute myocardial infarction Code(s): I21.A1 - MYOCARDIAL INFARCTION TYPE 2 Status: Acute (5) DM type 2 (diabetes mellitus, type 2) Status: Chronic Qualifiers: Diabetes mellitus half-way insulin use: without half-way use Diabetes mellitus complication status: with kidney complications Diabetes mellitus complication detail: with chronic kidney disease Chronic kidney disease stage : stage 2 (mild) Qualified Code(s): E11.22 - Type 2 diabetes mellitus with diabetic chronic kidney disease; N18.2 - Chronic kidney disease, stage 2 (mild) (6) Hypoglycemia Code(s): E16.2 - HYPOGLYCEMIA, UNSPECIFIED Status: Acute (7) Acute renal failure superimposed on stage 5 chronic kidney disease, not on chronic dialysis Code(s): N17.9 - ACUTE KIDNEY FAILURE, UNSPECIFIED; N18.5 - CHRONIC KIDNEY DISEASE, STAGE 5 Status: Acute (8) Dyslipidemia Code(s): E78.5 - HYPERLIPIDEMIA, UNSPECIFIED Status: Chronic (9) HTN (hypertension) Code(s): I10 - ESSENTIAL (PRIMARY) HYPERTENSION Status: Chronic Qualifiers: Hypertension type: essential hypertension Qualified Code(s): I10 - Essential (primary) hypertension (10) Diastolic congestive heart failure Code(s): I50.30 - UNSPECIFIED DIASTOLIC (CONGESTIVE) HEART FAILURE Status: Chronic Qualifiers: Heart failure chronicity: chronic Qualified Code(s): I50.32 - Chronic diastolic (congestive) heart failure - Plan Patient with worsening septic shock, minimally responsive to high dose vasopressors with worsening clinical course in spite of maximum therapy, don't think that this infection is survivable Pulmonology recommending comfort care and withdrawl of vent Will discuss with sons when they arrive Noah Carr- [phone] Mehdi Carr- [phone]
--- NOTE | 2019-12-27 09:00 | RAD ---
PORTABLE CHEST ONE VIEW: COMPARISON: 12/26/2019 FINDINGS: Bilateral vascular congestion. NG tube and endotracheal tube remain in place. Patchy linear and paren chymal changes in the infrahilar regions and lower lung zones with evidence for bilateral pleural eff usions, small. Stable vascular congestion. IMPRESSION: 1. Nasogastric tube and endotracheal tube have been placed. 2. Bilateral vascular congestion with small pleural effusions and some increased markings bilaterally , slightly progressive from the prior study. Continue short-term followup. POS: [facility]
[2019-12-27] MEDS: Lorazepam 2 MG/ML VIAL SLOW IVP PRN (09:25)
[2019-12-27] MEDS: VASOSTRICT 40 UNIT in Sodium Chloride 0.9% 100 ML IV SCH (10:37)
[2019-12-27] MEDS: Sodium Bicarbonate 150 MEQ in Dextrose 5% in Water 1,000 ML IV SCH ×2 (10:37→23:12)
[2019-12-27] MEDS: WATER IV SCH ×2 (10:38→23:12)
[2019-12-27] MEDS: EPINEPHRINE IV SCH ×2 (10:38→23:12)
[2019-12-27] MEDS: DEXTROSE 5% IV SCH ×2 (10:38→23:12)
[2019-12-27] MEDS: Cefepime 0.5 GM in Sodium Chloride 0.9% 100 ML IVPB SCH (12:09)
--- NOTE | 2019-12-27 15:20 | PRG ---
DATE OF SERVICE: 12/27/2019 SUBJECTIVE: Patient is seen in the ICU, intubated. OBJECTIVE: GENERAL: This is an elderly female, intubated. VITAL SIGNS: Temperature 98.7, pulse 87, respiratory rate 20, blood pressure 142/53. HEENT: Intubated. ABDOMEN: Obese. MUSCULOSKELETAL: 1+ edema. NEUROLOGIC: Intubated. LABORATORY DATA: Potassium 5.6, BUN is 111, creatinine 6.5. ASSESSMENT AND PLAN: 1. Acute kidney injury on chronic kidney stage 5 with worsening labs and not a candidate for dialysis. 2. Advanced dementia. 3. Hyperkalemia. 4. Acidosis. 5. Chronic anemia. Agree with palliative measures. Job ID: [id number]
[2019-12-27] MEDS: Rosuvastatin 20 MG TAB PO SCH ×2 (19:40→19:43)
[2019-12-28] MEDS: HumaLOG 300 UNITS/3 ML VIAL SC PRN ×5 (00:25→23:32)
[2019-12-28] MEDS: VASOSTRICT 40 UNIT in Sodium Chloride 0.9% 100 ML IV SCH (03:19)
[2019-12-28] MEDS: Hydrocortisone Sod Succ/PF 100 mg/2 ml Vial IVP SCH ×4 (05:39→23:31)
--- NOTE | 2019-12-28 06:32 | PDOC.HOSPP ---
- Subjective Encounter Date: 12/28/19 Encounter Time: 11:30 non-verbal Subjective: Patient able to be weaned off Levophed, still on Vasopressing and Epinephrine. No changes overnight. - Objective Vital Signs & Weight: Vital Signs (12 hours) Temp Pulse Resp BP Pulse Ox 12/28/19 06:00 98.8 F 24 H 12/28/19 04:00 24 H 12/28/19 03:41 75 12/28/19 02:00 98.6 F 24 H 12/28/19 00:00 24 H 12/27/19 23:26 72 122/52 L 12/27/19 22:00 24 H 12/27/19 20:00 24 H 100 12/27/19 18:57 71 99 Weight Admit Weight 221 lb 9.033 oz Weight 240 lb 4.862 oz Most Recent Monitor Data Heart Rate from ECG 75 NIBP 121/44 NIBP BP-Mean 69 Respiration from ECG 4 SpO2 100 I&O: 12/26/19 12/27/19 12/28/19 06:59 06:59 06:59 Intake Total 800 7220.4 5532.6 Output Total 325 170 184 Balance 475 7050.4 5348.6 Result Diagrams: 12/27/19 03:00 12/28/19 08:01 Additional Labs: Accuchecks 12/28/19 12/28/19 12/27/19 04:26 00:26 20:05 POC Glucose 305 H 270 H 187 H 12/27/19 12/27/19 12/27/19 18:32 17:10 16:06 POC Glucose 178 H 175 H 168 H 12/27/19 12/27/19 12/27/19 15:04 13:23 12:07 POC Glucose 177 H 234 H 212 H 12/27/19 12/27/19 12/27/19 10:45 09:34 07:44 POC Glucose 265 H 307 H 426 H 12/27/19 06:43 POC Glucose 432 H Hospitalist ROS - Review of Systems ROS unobtainable: due to endotracheal tube - Medication Medications: Active Medications Generic Name Dose Route Start Last Admin Trade Name Freq PRN Reason Stop Dose Admin Aspirin 325 mg 12/25/19 09:00 12/27/19 07:52 Aspirin PO 325 mg DAILY JUAN ANTONIO Administration Carvedilol 6.25 mg 12/25/19 17:00 12/26/19 10:56 Coreg PO Not Given BID-WM JUAN ANTONIO Citalopram Hydrobromide 40 mg 12/23/19 09:00 12/27/19 07:53 Celexa PO Not Given QAM JUAN ANTONIO Dextrose/Water 25 gm 12/23/19 00:11 12/26/19 05:54 Dextrose 50% SLOW IVP 25 gm PRN PRN Administration Hypoglycemia Famotidine 20 mg 12/23/19 09:00 12/27/19 07:52 Pepcid PO 20 mg DAILY JUAN ANTONIO Administration Hydrocortisone Sodium Succinate 50 mg 12/26/19 12:00 12/28/19 05:39 Solu-Cortef IVP 50 mg Q6HR JUAN ANTONIO Administration Cefepime HCl 0.5 gm/ Sodium 100 mls @ 200 mls/hr 12/26/19 12:00 12/27/19 12: 09 Chloride IVPB 100 mls Q24HR JUAN ANTONIO Administration Vancomycin HCl 500 mg/ Sodium 100 mls @ 100 mls/hr 12/26/19 11:15 12/27/19 01 :32 Chloride IVPB 100 mls WILLCALL JUAN ANTONIO Administration Norepinephrine Bitartrate 8 mg 250 mls @ 0 mls/hr 12/26/19 11:39 12/27/19 10: 38 / Dextrose/Water IVPB 250 mls INF PRN Administration TO MAINTAIN MAP > 65 Protocol As Directed Sodium Bicarbonate 150 meq/ 1,150 mls @ 100 mls/hr 12/26/19 12:45 12/27/19 23 :12 Dextrose/Water IV 1,150 mls INF JUAN ANTONIO Administration Sodium Chloride 1,000 mls @ 70 mls/hr 12/26/19 13:30 12/27/19 17:48 Normal Saline 0.9% IV 1,000 mls .[id number] JUAN ANTONIO Administration Vasopressin 40 unit/ 102 mls @ 0 mls/hr 12/26/19 20:15 12/28/19 03:19 Miscellaneous Medication 1 IV 102 mls each/ Sodium Chloride INF JUAN ANTONIO Administration Protocol As Directed Epinephrine 8 mg/ Dextrose/ 508 mls @ 0 mls/hr 12/27/19 10:00 12/27/19 23:12 Water IV 508 mls INF JUAN ANTONIO Administration Protocol Titrate Insulin Human Lispro 0 units 12/27/19 17:30 12/28/19 04:24 Humalog SC 8 unit .MODERATE SLIDING SC PRN Administration MODERATE SLIDING SCALE Protocol Lorazepam 2 mg 12/26/19 13:22 12/27/19 09:25 Ativan SLOW IVP 01/25/20 13:22 2 mg Q1H PRN Administration Breakthrough agitation Rosuvastatin Calcium 20 mg 12/23/19 21:00 12/27/19 19:43 Crestor PO Not Given HS JUAN ANTONIO Sodium Chloride 10 ml 12/23/19 00:11 12/25/19 22:18 Flush - Normal Saline IVF 10 ml PRN PRN Administration Saline Flush Terazosin HCl 10 mg 12/23/19 09:00 12/27/19 07:54 Hytrin PO Not Given DAILY JUAN ANTONIO - Exam General - other findings: intubated and sedated ENT: moist mucosa Heart: RRR, no murmur, no gallops, no rubs Respiratory: CTAB, no wheezes, no rales, no ronchi Gastrointestinal: no palpable masses Gastrointestinal - other findings: improved bowel sounds, guarding and grimacing in LLQ Psychiatric: somnolent Psychiatric - other findings: sedated on vent Hosp A/P (1) Sepsis due to urinary tract infection Code(s): A41.9 - SEPSIS, UNSPECIFIED ORGANISM; N39.0 - URINARY TRACT INFECTION, SITE NOT SPECIFIED Status: Acute (2) Bacteremia Code(s): R78.81 - BACTEREMIA Status: Acute (3) Hypotension Status: Acute (4) Type 2 acute myocardial infarction Code(s): I21.A1 - MYOCARDIAL INFARCTION TYPE 2 Status: Acute (5) DM type 2 (diabetes mellitus, type 2) Status: Chronic Qualifiers: Diabetes mellitus medical terminologist insulin use: without shelter use Diabetes mellitus complication status: with kidney complications Diabetes mellitus complication detail: with chronic kidney disease Chronic kidney disease stage : stage 2 (mild) Qualified Code(s): E11.22 - Type 2 diabetes mellitus with diabetic chronic kidney disease; N18.2 - Chronic kidney disease, stage 2 (mild) (6) Hypoglycemia Code(s): E16.2 - HYPOGLYCEMIA, UNSPECIFIED Status: Acute (7) Acute renal failure superimposed on stage 5 chronic kidney disease, not on chronic dialysis Code(s): N17.9 - ACUTE KIDNEY FAILURE, UNSPECIFIED; N18.5 - CHRONIC KIDNEY DISEASE, STAGE 5 Status: Acute (8) Dyslipidemia Code(s): E78.5 - HYPERLIPIDEMIA, UNSPECIFIED Status: Chronic (9) HTN (hypertension) Code(s): I10 - ESSENTIAL (PRIMARY) HYPERTENSION Status: Chronic Qualifiers: Hypertension type: essential hypertension Qualified Code(s): I10 - Essential (primary) hypertension (10) Diastolic congestive heart failure Code(s): I50.30 - UNSPECIFIED DIASTOLIC (CONGESTIVE) HEART FAILURE Status: Chronic Qualifiers: Heart failure chronicity: chronic Qualified Code(s): I50.32 - Chronic diastolic (congestive) heart failure - Plan Patient with septic shock, actually improved some and weaned off some of the vasopressors Pulmonology recommending comfort care and withdrawal of vent, suspect ischemic gut Palliative care consulted and discussing with ambrocio Carr- [phone] Mehdi Carr- [phone]
[2019-12-28 06:54] LABS: Actual Bicarbonate (HCO3a) 18.9 mEq/L (22-28); Base Excess (BEa) -5.1 mEq/L (-2.0 to +3.0); CO2 Tension 31.4 mmHg (35.0-45.0); Calcium, Ionized 0.89 mmol/L (1.12-1.30); Carboxyhemoglobin (COHb) 0.4 gm% (0.0-3.0); Hemoglobin (Hb) 10.2 g/dL (12.0-16.0); O2 Tension (PaO2) 87.9 mmHg (> 60.0)
[2019-12-28 07:00] LABS: Puncture Site RRA
--- NOTE | 2019-12-28 07:58 | PRG ---
DATE OF SERVICE: 12/28/2019 35 minutes critical time. SUBJECTIVE: The patient remains intubated on mechanical ventilation. She has actually been weaned off her Levophed, but continues on epinephrine and vasopressin. OBJECTIVE: VITAL SIGNS: Temperature is 98.8, pulse is 75, blood pressure 121/44. A 24-hour intake 5232, output 184. She has had no urine output. Her weight is up to 240 pounds. HEENT: Remarkable for facial edema. NECK: No adenopathy or JVD. LUNGS: Distant breath sounds. CARDIOVASCULAR: S1, S2. Regular. ABDOMEN: Soft, obese, nontender to deep palpation. EXTREMITIES: No clubbing or cyanosis. She has gross edema throughout. She is able to follow some commands by wiggling her feet and moving her hands. Her chest x-ray shows some fluid overload. LABORATORY DATA: White blood cell count of 19, hematocrit 27.1, and platelet count 102. PH of 7.40, pCO2 of 31, and pO2 of 87, SIMV rate 24, tidal volume 450, PEEP 5, pressure 10, FiO2 40%. Chemistry was not done. ASSESSMENT: 1. Acute respiratory failure, requiring mechanical ventilation. 2. Acute renal failure. 3. Suspected devastating event such as a bowel infarction. PLAN: The patient is somewhat better hemodynamically to my surprise, however, it would be almost impossible for her to get out of this without dialysis. I think the family is leaning more towards palliative measures. We will follow with you, but at the current time, she is not weanable. Job ID: [id number]
--- NOTE | 2019-12-28 08:23 | RAD ---
CHEST 1 VIEW: COMPARISON: 12/27/2019. HISTORY: COVID assessment. Pneumonia. FINDINGS: Stable lines and tubes. Stable lung parenchymal opacification. Stable cardiac silhouette. No pneum othorax. IMPRESSION: No significant interval change. POS: OFF
[2019-12-28 08:43] LABS: ALT (SGPT) 743 U/L (8-55); AST (SGOT) 2056 U/L (5-34); Albumin 1.8 g/dL (3.4-4.8); Alkaline Phosphatase 664 U/L (40-110); Anion Gap 18 mmol/L (10-20); BUN (Urea Nitrogen) 103 mg/dL (9.8-20.1); Bilirubin, Total 3.8 mg/dL (0.2-1.2); Calc. Creatinine Clearance 11 mL/min (70-130); Calcium 6.5 mg/dL (7.8-10.44); Carbon Dioxide 18 mmol/L (23-31); Chloride 98 mmol/L (98-107); Estimated GFR-MDRD 6; Globulin 2.7 g/dL (2.4-3.5); Glucose 261 mg/dL (83-110); Potassium 4.7 mmol/L (3.5-5.1); Protein, Total 4.5 g/dL (6.0-8.3); Sodium 129 mmol/L (136-145)
[2019-12-28] MEDS: Sodium Chloride 0.9% 1,000 ML IV SCH ×2 (09:28→20:30)
[2019-12-28] MEDS: Famotidine 20 MG TAB PO SCH (09:29)
[2019-12-28] MEDS: Aspirin 325 MG TAB PO SCH (09:29)
[2019-12-28 10:35] LABS: Vancomycin, Random 21.8 ug/mL (See Comment)
[2019-12-28] MEDS: Cefepime 0.5 GM in Sodium Chloride 0.9% 100 ML IVPB SCH (12:28)
--- NOTE | 2019-12-28 12:28 | PDOC.PALCO ---
Palliative Care Consult - Consult Details Requesting Physician: Dr Alexis Reason for Consult: goals of care, assistance with communication prognosis/ disease - Pertinent HPI 84 year old female who has recently transitioned to the long term after an exacerbation for heart failure. Known history of dementia as well. group home staff report that on the day of transfer to the emergency room she woke up and was "altered from her baseline" and hypotensive. EMS called and transported patient to hospital. Afebrile and initially in the emergency room was hypertensive, and with adequate O2 saturation. Evaluation in the emergency room identified elevated white count with x-ray suggesting pneumonia. Admitted for Sepsis, UTI, Acute on chronic renal failure, CHF exacerbation. After admission patient declined, required intubation to maintain an adequate airway. Currently in CCU with support to maintain pressures. - Pertinent PMH HTn, HDL, DM, CHF, CKD, Dementia, Acute Ischemic CVA - Social History Smoking Status: Never smoker Smoking: no tobacco exposure Alcohol Use: none Drug Use History: none Living Situation: long term resident - Medications MAR Reviewed: Yes - Allergies Allergies/Adverse Reactions: Allergies Allergy/AdvReac Type Severity Reaction Status Date / Time No Known Allergies Allergy Verified 12/23/19 00:50 - Subjective Mechanical ventilation, sedation - ROS Non Response: due to endotracheal tube, due to mental status - Objective Vital Signs: Vital Signs - Most Recent Temp Pulse Resp BP Pulse Ox 97.1 F L 74 24 H 101/45 L 100 12/28/19 12:00 12/28/19 06:39 12/28/19 12:00 12/28/19 06:39 12/28/19 08:00 Palliative Performance Scale: 20 - Physical Exam Constitutional: encephalitic, ill appearing HEENT: moist MMs, sclera anicteric Deviation from normal: mechanical ventilation Cardiovascular: RRR Gastrointestinal: soft, non-tender, incontinent Genitourinary: woodruff catheter Musculoskeletal: no cyanosis, diffuse muscle atrophy Deviation from normal: sedated, appears to have no focal deficits Skin: cap refill <2 seconds Deviation from normal: Pallor Deviation from normal: encephalopathic - Problem List (1) Palliative care encounter Code(s): Z51.5 - ENCOUNTER FOR PALLIATIVE CARE Current Visit: Yes Status: Acute (2) Physical deconditioning Code(s): R53.81 - OTHER MALAISE Current Visit: Yes Status: Acute (3) Acute renal failure superimposed on stage 5 chronic kidney disease, not on chronic dialysis Code(s): N17.9 - ACUTE KIDNEY FAILURE, UNSPECIFIED; N18.5 - CHRONIC KIDNEY DISEASE, STAGE 5 Current Visit: Yes Status: Acute (4) Sepsis due to urinary tract infection Code(s): A41.9 - SEPSIS, UNSPECIFIED ORGANISM; N39.0 - URINARY TRACT INFECTION, SITE NOT SPECIFIED Current Visit: Yes Status: Acute (5) Diastolic congestive heart failure Code(s): I50.30 - UNSPECIFIED DIASTOLIC (CONGESTIVE) HEART FAILURE Current Visit: Yes Status: Chronic Qualifiers: Heart failure chronicity: chronic Qualified Code(s): I50.32 - Chronic diastolic (congestive) heart failure (6) Chronic anemia Code(s): D64.9 - ANEMIA, UNSPECIFIED Current Visit: No Status: Chronic (7) Obesity Code(s): E66.9 - OBESITY, UNSPECIFIED Current Visit: No Status: Chronic Qualifiers: Obesity classification: adult class 3 (BMI >= 40) Body mass index: BMI 40.0 -44.9 - Plan/Recommendations Plan: Palliative care team assessed patient and reviewed records. Communicated with Lachelle Mehdi and Clyde. Communicated with physicians involved in care. Palliative Care will continue with conversations in relation to Goal of Care and poor disease progression. Sons having a difficult time grasping chronic disease trajectory of their mother. She had recently transitioned to the long term secondary to decline and inability to live independently with her son, requiring increase in assistance with ADL. *Palliative Care to follow up 12/29/19 with life review and continued discussion related to poor meaningful recovery, renal disease and not a candidate for hemodialysis. Please also refer to Natasha Jj RNblow molder notes in note section. [60] minutes spent on this encounter with >50% of the time in counseling and coordination of care. Thank you for this very appropriate consult.
[2019-12-28] MEDS: Citalopram 20 MG TAB PO SCH (12:53)
--- NOTE | 2019-12-28 17:22 | PRG ---
DATE OF SERVICE: 12/28/2019 SUBJECTIVE: An 84-year-old female being seen for end-stage acute kidney injury. Patient is intubated and resting. PHYSICAL EXAMINATION: GENERAL: Patient is resting. VITAL SIGNS: Afebrile, pulse 85, breathing 16, blood pressure 129/68. HEENT: Head normocephalic and atraumatic. Eyes intact, no ulcers. Nose intact, no ulcers. Ears intact, no ulcers. NECK: Supple. No JVD. CHEST: Symmetrical and clear. CARDIOVASCULAR: Shows S1 and S2, no rub, no murmur. GASTROINTESTINAL: Abdomen is soft, bowel sounds positive. EXTREMITIES: Show no edema or ulcers. SKIN: Shows no rash or petechiae. MUSCULOSKELETAL: Shows no joint swelling or stiffness. GENITOURINARY: Shows no Coughlin or CVA tenderness. NEUROLOGICAL: The patient is resting. LABORATORY DATA: Creatinine is 6.6. ASSESSMENT AND PLAN: 1. Acute kidney injury with progressive chronic kidney disease, stage 5. No urgent indication for dialysis. 2. Multiorgan failure. 3. Hypertension. 4. Respiratory failure. No urgent indication for dialysis. Agree with palliative care evaluation. Job ID: [id number]
[2019-12-28] MEDS: Lorazepam 2 MG/ML VIAL SLOW IVP PRN (20:11)
[2019-12-29] MEDS: VASOSTRICT 40 UNIT in Sodium Chloride 0.9% 100 ML IV SCH ×2 (01:38→19:32)
[2019-12-29] MEDS: EPINEPHRINE IV SCH (01:38)
[2019-12-29] MEDS: DEXTROSE 5% IV SCH (01:38)
[2019-12-29] MEDS: WATER IV SCH (01:38)
[2019-12-29 04:32] LABS: ALT (SGPT) 863 U/L (8-55); AST (SGOT) 2673 U/L (5-34); Albumin 1.9 g/dL (3.4-4.8); Alkaline Phosphatase 802 U/L (40-110); Anion Gap 18 mmol/L (10-20); BUN (Urea Nitrogen) 108 mg/dL (9.8-20.1); Bilirubin, Total 4.9 mg/dL (0.2-1.2); Calc. Creatinine Clearance 11 mL/min (70-130); Calcium 6.3 mg/dL (7.8-10.44); Carbon Dioxide 16 mmol/L (23-31); Chloride 98 mmol/L (98-107); Estimated GFR-MDRD 6; Globulin 2.8 g/dL (2.4-3.5); Glucose 174 mg/dL (83-110); Potassium 4.8 mmol/L (3.5-5.1); Protein, Total 4.7 g/dL (6.0-8.3); Sodium 127 mmol/L (136-145)
[2019-12-29] MEDS: Hydrocortisone Sod Succ/PF 100 mg/2 ml Vial IVP SCH ×4 (05:01→23:52)
[2019-12-29] MEDS: HumaLOG 300 UNITS/3 ML VIAL SC PRN ×5 (05:01→23:55)
[2019-12-29] MEDS: Morphine 2 MG/ML SYRINGE SLOW IVP PRN ×2 (07:30→21:58)
[2019-12-29 07:51] LABS: Actual Bicarbonate (HCO3a) 17.2 mEq/L (22-28); CO2 Tension 26.2 mmHg (35.0-45.0); Calcium, Ionized 0.84 mmol/L (1.12-1.30); Carboxyhemoglobin (COHb) 0.6 gm% (0.0-3.0); Hemoglobin (Hb) 9.7 g/dL (12.0-16.0); O2 Tension (PaO2) 86.7 mmHg (> 60.0); Potassium - ABG Lab 4.76 mmol/L (3.70-5.30); pH, Arterial 7.43 (7.35-7.45)
[2019-12-29 08:00] LABS: Puncture Site LINE
--- NOTE | 2019-12-29 08:01 | PDOC.HOSPP ---
- Subjective Encounter Date: 12/29/19 Encounter Time: 11:30 Subjective: Patient unchanged overnight. Still sedated on vent and requiring pressors - Objective Vital Signs & Weight: Vital Signs (12 hours) Temp Pulse Resp 12/29/19 07:41 73 12/29/19 06:00 24 H 12/29/19 04:00 24 H 12/29/19 03:06 75 12/29/19 03:00 98.3 F 12/29/19 02:00 24 H 12/29/19 00:27 72 12/29/19 00:00 24 H 12/28/19 23:00 97.9 F 12/28/19 22:10 76 12/28/19 22:00 24 H Weight Admit Weight 221 lb 9.033 oz Weight 239 lb 6.752 oz Most Recent Monitor Data Heart Rate from ECG 72 NIBP 125/65 NIBP BP-Mean 85 Respiration from ECG 19 SpO2 100 I&O: 12/28/19 12/29/19 12/30/19 06:59 06:59 06:59 Intake Total 5532.6 2748.4 Output Total 184 265 Balance 5348.6 2483.4 Result Diagrams: 12/27/19 03:00 12/29/19 03:30 Additional Labs: Accuchecks 12/28/19 12/28/19 12/28/19 23:34 20:27 16:23 POC Glucose 189 H 180 H 227 H 12/28/19 12/28/19 12/27/19 12:40 07:59 00:47 POC Glucose 270 H 291 H 403 H 12/25/19 20:26 POC Glucose 63 L Hospitalist ROS - Review of Systems ROS unobtainable: due to endotracheal tube - Medication Medications: Active Medications Generic Name Dose Route Start Last Admin Trade Name Freq PRN Reason Stop Dose Admin Aspirin 325 mg 12/25/19 09:00 12/28/19 09:29 Aspirin PO 325 mg DAILY JUAN ANTONIO Administration Dextrose/Water 25 gm 12/23/19 00:11 12/26/19 05:54 Dextrose 50% SLOW IVP 25 gm PRN PRN Administration Hypoglycemia Famotidine 20 mg 12/23/19 09:00 12/28/19 09:29 Pepcid PO 20 mg DAILY JUAN ANTONIO Administration Hydrocortisone Sodium Succinate 50 mg 12/26/19 12:00 12/29/19 05:01 Solu-Cortef IVP 50 mg Q6HR JUAN ANTONIO Administration Cefepime HCl 0.5 gm/ Sodium 100 mls @ 200 mls/hr 12/26/19 12:00 12/28/19 12: 28 Chloride IVPB 100 mls Q24HR JUAN ANTONIO Administration Vancomycin HCl 500 mg/ Sodium 100 mls @ 100 mls/hr 12/26/19 11:15 12/27/19 01 :32 Chloride IVPB 100 mls WILLCALL JUAN ANTONIO Administration Norepinephrine Bitartrate 8 mg 250 mls @ 0 mls/hr 12/26/19 11:39 12/27/19 10: 38 / Dextrose/Water IVPB 250 mls INF PRN Administration TO MAINTAIN MAP > 65 Protocol As Directed Sodium Bicarbonate 150 meq/ 1,150 mls @ 100 mls/hr 12/26/19 12:45 12/27/19 23 :12 Dextrose/Water IV 1,150 mls INF JUAN ANTONIO Administration Vasopressin 40 unit/ 102 mls @ 0 mls/hr 12/26/19 20:15 12/29/19 01:38 Miscellaneous Medication 1 IV 102 mls each/ Sodium Chloride INF JUAN ANTONIO Administration Protocol As Directed Epinephrine 8 mg/ Dextrose/ 508 mls @ 0 mls/hr 12/27/19 10:00 12/29/19 01:38 Water IV 508 mls INF JUAN ANTONIO Administration Protocol Titrate Insulin Human Lispro 0 units 12/23/19 00:11 12/28/19 09:37 Humalog SC 3 unit .BEDTIME SLIDING SC PRN Administration Bedtime Correctional Scale Insulin Human Lispro 0 units 12/27/19 17:30 12/29/19 05:01 Humalog SC 2 unit .MODERATE SLIDING SC PRN Administration MODERATE SLIDING SCALE Protocol Lorazepam 2 mg 12/26/19 13:22 12/28/19 20:11 Ativan SLOW IVP 01/25/20 13:22 2 mg Q1H PRN Administration Breakthrough agitation Morphine Sulfate 2 mg 12/26/19 13:22 12/29/19 07:30 Morphine SLOW IVP 01/25/20 13:22 2 mg Q1H PRN Administration BREAKTHROUGH PAIN/Agitation Sodium Chloride 10 ml 12/23/19 00:11 12/25/19 22:18 Flush - Normal Saline IVF 10 ml PRN PRN Administration Saline Flush - Exam General Appearance: ill appearing ENT: moist mucosa Heart: RRR, no murmur, no gallops, no rubs Respiratory: CTAB, no wheezes, no rales, no ronchi Gastrointestinal: diminished bowl sounds Gastrointestinal - other findings: grimaces to palpation diffusely Psychiatric - other findings: sedated on vent Hosp A/P (1) Sepsis due to urinary tract infection Code(s): A41.9 - SEPSIS, UNSPECIFIED ORGANISM; N39.0 - URINARY TRACT INFECTION, SITE NOT SPECIFIED Status: Acute (2) Bacteremia Code(s): R78.81 - BACTEREMIA Status: Acute (3) Hypotension Status: Acute (4) Type 2 acute myocardial infarction Code(s): I21.A1 - MYOCARDIAL INFARCTION TYPE 2 Status: Acute (5) DM type 2 (diabetes mellitus, type 2) Status: Chronic Qualifiers: Diabetes mellitus terminal make up operator insulin use: without half-way use Diabetes mellitus complication status: with kidney complications Diabetes mellitus complication detail: with chronic kidney disease Chronic kidney disease stage : stage 2 (mild) Qualified Code(s): E11.22 - Type 2 diabetes mellitus with diabetic chronic kidney disease; N18.2 - Chronic kidney disease, stage 2 (mild) (6) Hypoglycemia Code(s): E16.2 - HYPOGLYCEMIA, UNSPECIFIED Status: Acute (7) Acute renal failure superimposed on stage 5 chronic kidney disease, not on chronic dialysis Code(s): N17.9 - ACUTE KIDNEY FAILURE, UNSPECIFIED; N18.5 - CHRONIC KIDNEY DISEASE, STAGE 5 Status: Acute (8) Dyslipidemia Code(s): E78.5 - HYPERLIPIDEMIA, UNSPECIFIED Status: Chronic (9) HTN (hypertension) Code(s): I10 - ESSENTIAL (PRIMARY) HYPERTENSION Status: Chronic Qualifiers: Hypertension type: essential hypertension Qualified Code(s): I10 - Essential (primary) hypertension (10) Diastolic congestive heart failure Code(s): I50.30 - UNSPECIFIED DIASTOLIC (CONGESTIVE) HEART FAILURE Status: Chronic Qualifiers: Heart failure chronicity: chronic Qualified Code(s): I50.32 - Chronic diastolic (congestive) heart failure - Plan Patient with septic shock, actually improved some and weaned off some of the vasopressors, multiorgan failure Pulmonology recommending comfort care and withdrawal of vent, suspect ischemic gut Palliative care consulted and discussing with ambrocio Carr- [phone] Mehdi Carr- [phone]
--- NOTE | 2019-12-29 08:30 | PRG ---
DATE OF SERVICE: 12/29/2019 TIME SPENT: 35 minutes of critical care time. SUBJECTIVE: The patient remains intubated, on mechanical ventilation. She is on high-dose vasopressors. OBJECTIVE: VITAL SIGNS: Temperature is 98.3, pulse 75, blood pressure 112/50. She is currently on epinephrine at 5 mcg/minute and vasopressin 0.04 units/minute. NEUROLOGIC: She will not follow any commands for me today. HEENT: Remarkable for severe periorbital edema. NECK: No adenopathy or JVD. LUNGS: Coarse breath sounds. CARDIOVASCULAR: S1, S2. Regular. ABDOMEN: Soft, obese, nontender. EXTREMITIES: Edematous throughout. LABORATORY DATA: White blood cell count 19.1, hemoglobin 8.9, hematocrit 27.1, and platelet count 102. Sodium 127, potassium 4.8, chloride 98, CO2 of 16, BUN 108, creatinine 6.7, and glucose 174. Chest x-ray shows bilateral pulmonary edema and pleural effusions. ASSESSMENT: 1. Multiorgan failure including acute respiratory failure, acute renal failure, and unrelenting hypotension. 2. Suspected devastating event such as a bowel infarction. PLAN: Nephrology has not deemed her a good candidate for dialysis. I would recommend that care be withdrawn as I see no hope for reasonable recovery in this patient. I reviewed the labs. Nothing to adjust at this time other than stop the IV fluids as she is very overloaded. Job ID: [id number]
[2019-12-29] MEDS: Aspirin 325 MG TAB PO SCH (09:18)
[2019-12-29] MEDS: Famotidine 20 MG TAB PO SCH (09:18)
[2019-12-29] MEDS: Lorazepam 2 MG/ML VIAL SLOW IVP PRN (09:19)
[2019-12-29 09:21] LABS: Vancomycin, Random 21.7 ug/mL (See Comment)
--- NOTE | 2019-12-29 09:23 | RAD ---
PORTABLE CHEST 1 VIEW: DATE: 12/29/2019. TIME: 2:53 AM. HISTORY: Respiratory failure. COMPARISON: Previous day. FINDINGS/IMPRESSION: There is mild worsening of opacities in the lower lung schmidt bilaterally since the previous day's ex am. The remainder of the exam is otherwise stable. POS: IVETT
--- NOTE | 2019-12-29 11:03 | PDOC.PALPN ---
Palliative Progress Note - Subjective mechanical ventilation, encephalopathic - Objective Vital Signs: Vital Signs - Most Recent Temp Pulse Resp BP Pulse Ox 97.7 F 71 24 H 114/75 100 12/29/19 08:00 12/29/19 10:29 12/29/19 10:00 12/28/19 14:33 12/29/19 08:00 - Physical Exam Constitutional: encephalitic, ill appearing HEENT: moist MMs, sclera anicteric Respiratory: no wheezing Deviation from normal: mechanical ventilation Cardiovascular: RRR, diminished peripheral pulses Genitourinary: woodruff catheter Musculoskeletal: edema present, diffuse muscle atrophy Deviation from normal: encephalopathic Skin: bruising, fragile, friable Deviation from normal: encephalopathic - Assessment (1) Palliative care encounter Code(s): Z51.5 - ENCOUNTER FOR PALLIATIVE CARE Current Visit: Yes Status: Acute (2) Physical deconditioning Code(s): R53.81 - OTHER MALAISE Current Visit: Yes Status: Acute (3) Acute renal failure superimposed on stage 5 chronic kidney disease, not on chronic dialysis Code(s): N17.9 - ACUTE KIDNEY FAILURE, UNSPECIFIED; N18.5 - CHRONIC KIDNEY DISEASE, STAGE 5 Current Visit: Yes Status: Acute (4) Sepsis due to urinary tract infection Code(s): A41.9 - SEPSIS, UNSPECIFIED ORGANISM; N39.0 - URINARY TRACT INFECTION, SITE NOT SPECIFIED Current Visit: Yes Status: Acute (5) Diastolic congestive heart failure Code(s): I50.30 - UNSPECIFIED DIASTOLIC (CONGESTIVE) HEART FAILURE Current Visit: Yes Status: Chronic Qualifiers: Heart failure chronicity: chronic Qualified Code(s): I50.32 - Chronic diastolic (congestive) heart failure (6) Chronic anemia Code(s): D64.9 - ANEMIA, UNSPECIFIED Current Visit: No Status: Chronic (7) Obesity Code(s): E66.9 - OBESITY, UNSPECIFIED Current Visit: No Status: Chronic Qualifiers: Obesity classification: adult class 3 (BMI >= 40) Body mass index: BMI 40.0 -44.9 - Plan Plan: Spoke with both of patient sons, Noah laura Harding. Asked their perception of disease process, then teaching in relation to multiple morbidities and trajectory. Discussed poor meaningful recovery. Sons "Hope for the best" initiated discussion in relation to "plan for the worst". Neither son would be surprised if their mother passes. Discussed that they are hopeful for the next 48 hours, but have an understanding they do not want her to suffer. Communicated with Dr Alexis Please refer to Natasha Jj printing press operator apprentice RN notes in note section. [60] minutes spent on this encounter with >50% of the time in counseling and coordination of care. - ROS Non Response: due to endotracheal tube, due to mental status
[2019-12-29] MEDS: Cefepime 0.5 GM in Sodium Chloride 0.9% 100 ML IVPB SCH (12:00)
--- NOTE | 2019-12-29 13:27 | PRG ---
DATE OF SERVICE: SUBJECTIVE: An 84-year-old female, being seen for acute kidney injury. OBJECTIVE: GENERAL: The patient is resting. VITAL SIGNS: Pulse 75, breathing 16, blood pressure 130/60. HEENT: Head normocephalic and atraumatic. Eyes intact, no ulcers. Nose intact , no ulcers. Ears intact, no ulcers. Neck: Supple. No JVD. Chest: Symmetrical and clear. Cardiovascular: Shows S1 and S2, no rub, no murmur. Gastrointestinal: Abdomen is soft, bowel sounds positive. Extremities: Show no edema or ulcers. Skin: Shows no rash or petechiae. Musculoskeletal: Shows no joint swelling or stiffness. Genitourinary: Shows no Coughlin or CVA tenderness. Neurologic: Motor intact. Cranial nerves intact. LABORATORY DATA: Hemoglobin 8.9, creatinine 6.6, GFR . ASSESSMENT: 1. Stage 5 chronic kidney disease, no urgent indication for dialysis. Overall condition is poor. Palliative care is on board. 2. Anemia, stable. 3. Metabolic acidosis, stable. Management per primary team. Job ID: [id number] [facility]
[2019-12-30 04:25] LABS: ALT (SGPT) 933 U/L (8-55); AST (SGOT) 2910 U/L (5-34); Albumin 1.7 g/dL (3.4-4.8); Alkaline Phosphatase 829 U/L (40-110); Anion Gap 19 mmol/L (10-20); BUN (Urea Nitrogen) 112 mg/dL (9.8-20.1); Bilirubin, Total 5.9 mg/dL (0.2-1.2); Calc. Creatinine Clearance 10 mL/min (70-130); Carbon Dioxide 15 mmol/L (23-31); Chloride 99 mmol/L (98-107); Estimated GFR-MDRD 5; Globulin 2.8 g/dL (2.4-3.5); Glucose 133 mg/dL (83-110); Protein, Total 4.5 g/dL (6.0-8.3); Sodium 128 mmol/L (136-145)
[2019-12-30] MEDS: Hydrocortisone Sod Succ/PF 100 mg/2 ml Vial IVP SCH ×4 (05:42→23:29)
--- NOTE | 2019-12-30 07:36 | RAD ---
PORTABLE CHEST: DATE: 12/30/2019. PROVIDED CLINICAL HISTORY: Pneumonia. FINDINGS: Comparison 12/29/2019. Significant interval change with respect to prior examination is not apparent. IMPRESSION: As above. POS: LISA
[2019-12-30] MEDS: Norepinephrine 8 MG in Dextrose 5% in Water 242 ML IVPB PRN ×2 (07:46→20:02)
--- NOTE | 2019-12-30 08:07 | PDOC.HOSPP ---
- Subjective Encounter Date: 12/30/19 Encounter Time: 11:00 Subjective: Patient back on Levophed this AM after weaning off all pressors last night. - Objective Vital Signs & Weight: Vital Signs (12 hours) Temp Pulse Resp BP 12/30/19 07:00 68 109/49 L 12/30/19 06:00 24 H 12/30/19 04:00 97.4 F L 24 H 12/30/19 02:10 71 126/58 L 12/30/19 02:00 24 H 12/30/19 00:00 97.5 F L 24 H 12/29/19 22:00 70 24 H 107/76 Weight Admit Weight 221 lb 9.033 oz Weight 240 lb 11.916 oz Most Recent Monitor Data Heart Rate from ECG 67 NIBP 109/49 NIBP BP-Mean 69 Respiration from ECG 24 SpO2 100 I&O: 12/29/19 12/30/19 12/31/19 06:59 06:59 06:59 Intake Total 2748.4 763.1 Output Total 265 136 20 Balance 2483.4 627.1 -20 Result Diagrams: 12/27/19 03:00 12/30/19 04:00 Additional Labs: Accuchecks 12/29/19 12/29/19 12/29/19 23:54 19:45 16:11 POC Glucose 156 H 176 H 202 H 12/29/19 12/29/19 11:47 08:07 POC Glucose 223 H 215 H Hospitalist ROS - Review of Systems ROS unobtainable: due to endotracheal tube - Medication Medications: Active Medications Generic Name Dose Route Start Last Admin Trade Name Prasanna PRN Reason Stop Dose Admin Aspirin 325 mg 12/25/19 09:00 12/29/19 09:18 Aspirin PO 325 mg DAILY JUAN ANTONIO Administration Dextrose/Water 25 gm 12/23/19 00:11 12/26/19 05:54 Dextrose 50% SLOW IVP 25 gm PRN PRN Administration Hypoglycemia Famotidine 20 mg 12/23/19 09:00 12/29/19 09:18 Pepcid PO 20 mg DAILY JUAN ANTONIO Administration Hydrocortisone Sodium Succinate 50 mg 12/26/19 12:00 12/30/19 05:42 Solu-Cortef IVP 50 mg Q6HR JUAN ANTONIO Administration Cefepime HCl 0.5 gm/ Sodium 100 mls @ 200 mls/hr 12/26/19 12:00 12/29/19 12: 00 Chloride IVPB 100 mls Q24HR JUAN ANTONIO Administration Vancomycin HCl 500 mg/ Sodium 100 mls @ 100 mls/hr 12/26/19 11:15 12/27/19 01 :32 Chloride IVPB 100 mls WILLCALL JUAN ANTONIO Administration Norepinephrine Bitartrate 8 mg 250 mls @ 0 mls/hr 12/26/19 11:39 12/30/19 07: 46 / Dextrose/Water IVPB 250 mls INF PRN Administration TO MAINTAIN MAP > 65 Protocol As Directed Sodium Bicarbonate 150 meq/ 1,150 mls @ 100 mls/hr 12/26/19 12:45 12/27/19 23 :12 Dextrose/Water IV 1,150 mls INF JUAN ANTONIO Administration Vasopressin 40 unit/ 102 mls @ 0 mls/hr 12/26/19 20:15 12/29/19 19:32 Miscellaneous Medication 1 IV 102 mls each/ Sodium Chloride INF JUAN ANTONIO Administration Protocol As Directed Insulin Human Lispro 0 units 12/23/19 00:11 12/28/19 09:37 Humalog SC 3 unit .BEDTIME SLIDING SC PRN Administration Bedtime Correctional Scale Insulin Human Lispro 0 units 12/27/19 17:30 12/29/19 23:55 Humalog SC 2 unit .MODERATE SLIDING SC PRN Administration MODERATE SLIDING SCALE Protocol Lorazepam 2 mg 12/26/19 13:22 12/29/19 09:19 Ativan SLOW IVP 01/25/20 13:22 2 mg Q1H PRN Administration Breakthrough agitation Morphine Sulfate 2 mg 12/26/19 13:22 12/29/19 21:58 Morphine SLOW IVP 01/25/20 13:22 2 mg Q1H PRN Administration BREAKTHROUGH PAIN/Agitation Sodium Chloride 10 ml 12/23/19 00:11 12/25/19 22:18 Flush - Normal Saline IVF 10 ml PRN PRN Administration Saline Flush - Exam General - other findings: sedated on vent, grimaces to painful stimuli Heart: RRR, no murmur, no gallops, no rubs Respiratory: CTAB, no wheezes, no rales, no ronchi Gastrointestinal: diminished bowl sounds Gastrointestinal - other findings: grimaces to palpation of Right abdomen now Extremities: no edema Psychiatric - other findings: sedated on vent Hosp A/P (1) Sepsis due to urinary tract infection Code(s): A41.9 - SEPSIS, UNSPECIFIED ORGANISM; N39.0 - URINARY TRACT INFECTION, SITE NOT SPECIFIED Status: Acute (2) Bacteremia Code(s): R78.81 - BACTEREMIA Status: Acute (3) Hypotension Status: Acute (4) Type 2 acute myocardial infarction Code(s): I21.A1 - MYOCARDIAL INFARCTION TYPE 2 Status: Acute (5) DM type 2 (diabetes mellitus, type 2) Status: Chronic Qualifiers: Diabetes mellitus buttermaker helper insulin use: without buttermaker helper use Diabetes mellitus complication status: with kidney complications Diabetes mellitus complication detail: with chronic kidney disease Chronic kidney disease stage : stage 2 (mild) Qualified Code(s): E11.22 - Type 2 diabetes mellitus with diabetic chronic kidney disease; N18.2 - Chronic kidney disease, stage 2 (mild) (6) Hypoglycemia Code(s): E16.2 - HYPOGLYCEMIA, UNSPECIFIED Status: Acute (7) Acute renal failure superimposed on stage 5 chronic kidney disease, not on chronic dialysis Code(s): N17.9 - ACUTE KIDNEY FAILURE, UNSPECIFIED; N18.5 - CHRONIC KIDNEY DISEASE, STAGE 5 Status: Acute (8) Dyslipidemia Code(s): E78.5 - HYPERLIPIDEMIA, UNSPECIFIED Status: Chronic (9) HTN (hypertension) Code(s): I10 - ESSENTIAL (PRIMARY) HYPERTENSION Status: Chronic Qualifiers: Hypertension type: essential hypertension Qualified Code(s): I10 - Essential (primary) hypertension (10) Diastolic congestive heart failure Code(s): I50.30 - UNSPECIFIED DIASTOLIC (CONGESTIVE) HEART FAILURE Status: Chronic Qualifiers: Heart failure chronicity: chronic Qualified Code(s): I50.32 - Chronic diastolic (congestive) heart failure - Plan Patient with septic shock, back on Levophed, multiorgan failure Pulmonology recommending comfort care and withdrawal of vent, suspect ischemic gut Palliative care consulted and discussing with ambrocio Carr- [phone] Mehdi Carr- [phone]
--- NOTE | 2019-12-30 08:09 | PRG ---
DATE OF SERVICE: 12/30/2019 This is a 35 minutes critical care time. SUBJECTIVE: This patient remains intubated and on mechanical ventilation. She is not responsive to my stimulation. OBJECTIVE: VITAL SIGNS: On exam, temperature 97.4, pulse 67, blood pressure 95/44. She is currently on vasopressin, but Levophed is about to be restarted because of continued hypotension. Intake for 24 hours has been 763, output 136 with minimal output by the Coughlin catheter. HEENT: Remarkable for some periorbital edema. She has gum swelling. She has bleeding around her teeth. LUNGS: Have coarse breath sounds. CARDIOVASCULAR: Distant without audible murmur. ABDOMEN: Obese, soft. EXTREMITIES: Edematous throughout. IMAGING STUDIES: Her chest x-ray shows significant bilateral edema, ET tube is in good position. LABORATORY DATA: White blood cell count 19.1, hematocrit 27.1, and platelet count 102. Sodium 128, potassium 5, chloride 99, CO2 of 15, BUN 112, creatinine 7.3, glucose 133, AST 2910, ALT 933. ASSESSMENT: Multiple organ failure without any evidence of improvement. This patient has acute respiratory failure, acute renal failure, and unrelenting septic shock. She has transaminitis. I suspect she has probably infarcted bowel. PLAN: She has absolutely no chance for recovery from this and palliative measures should be pursued. I think continuing the current interventions would be a fruitless endeavor. I am happy to talk to the family if it is needed. Job ID: [id number]
[2019-12-30] MEDS: HumaLOG 300 UNITS/3 ML VIAL SC PRN ×5 (08:27→23:43)
[2019-12-30] MEDS: Aspirin 325 MG TAB PO SCH (09:15)
[2019-12-30] MEDS: Famotidine 20 MG TAB PO SCH (09:15)
[2019-12-30 09:36] LABS: Vancomycin, Random 21.5 ug/mL (See Comment)
[2019-12-30] MEDS: Cefepime 0.5 GM in Sodium Chloride 0.9% 100 ML IVPB SCH (12:19)
[2019-12-30] MEDS: Morphine 2 MG/ML SYRINGE SLOW IVP PRN ×2 (16:57→19:58)
[2019-12-31 05:28] LABS: ALT (SGPT) 761 U/L (8-55); AST (SGOT) 1716 U/L (5-34); Albumin 1.8 g/dL (3.4-4.8); Alkaline Phosphatase 767 U/L (40-110); Anion Gap 20 mmol/L (10-20); BUN (Urea Nitrogen) 122 mg/dL (9.8-20.1); Bilirubin, Total 5.3 mg/dL (0.2-1.2); Calc. Creatinine Clearance 9 mL/min (70-130); Carbon Dioxide 14 mmol/L (23-31); Chloride 97 mmol/L (98-107); Estimated GFR-MDRD 5; Glucose 160 mg/dL (83-110); Potassium 5.2 mmol/L (3.5-5.1); Protein, Total 4.8 g/dL (6.0-8.3); Sodium 126 mmol/L (136-145)
[2019-12-31 05:32] LABS: Calcium 5.8 mg/dL (7.8-10.44)
[2019-12-31 05:36] LABS: Band 1 % (5-11); Hemoglobin 10.2 g/dL (12.0-16.0); Hypochromia SLIGHT = 6-15 cells (100X) (0-5/hpf); Lymphocytes 9 % (21-51); MDiff Complete? YES; Mean Corpuscular HGB CONC 33.4 g/dL (32.0-36.0); Mean Corpuscular Hemoglobin 30.3 pg (27.0-31.0); Mean Corpuscular Volume 90.5 fL (78.0-98.0); Mean Platelet Volume 9.9 fL (7.4-10.4); Monocytes 5 % (0-10); Neutrophil 85 % (42-75); Platelet Count 55 thou/uL (130-400); Platelet Morphology Comment Appears Decreased; RBC Distribution Width 15.5 % (11.5-14.5); Red Blood Cell (RBC) Count 3.36 mill/uL (4.20-5.40); White Blood Cell (WBC) Count 21.1 thou/uL (4.8-10.8)
[2019-12-31] MEDS: Hydrocortisone Sod Succ/PF 100 mg/2 ml Vial IVP SCH ×3 (05:56→18:52)
[2019-12-31] MEDS: HumaLOG 300 UNITS/3 ML VIAL SC PRN ×4 (05:56→21:21)
[2019-12-31] MEDS ORDERED: Calcium Gluconate 4.6 MEQ in Sodium Chloride 0.9% 100 ML IVPB SCH (06:00)
[2019-12-31] MEDS: Norepinephrine 8 MG in Dextrose 5% in Water 242 ML IVPB PRN (07:30)
--- NOTE | 2019-12-31 08:37 | PRG ---
DATE OF SERVICE: 12/31/2019 This is 35 minutes critical care time. SUBJECTIVE: The patient remains intubated on mechanical ventilation. There have been no signs of improvement. OBJECTIVE: VITAL SIGNS: Temperature 97.3, pulse in the 70s, blood pressure 91/45 via art-line. She is on Levophed 4.5 mcg/minute. Total intake for 24 hours 788, output 155. Her weight is now 243 pounds. It is noted her admission weight is 212 pounds; therefore, she is about 31 pounds fluid overloaded. HEENT: Remarkable for marked perioral and periorbital edema. She has some bleeding in her gums. NECK: No JVD. LUNGS: Coarse breath sounds. CARDIOVASCULAR: S1 and S2 paced. ABDOMEN: Soft and obese. EXTREMITIES: 4+ edema throughout. LABORATORY DATA: Sodium 126, potassium 5.2, chloride 97, CO2 of 14, BUN 122, creatinine 7.9, glucose 160, calcium 5.8, AST 1716, ALT 761. White blood cell count 21.1, hematocrit 30.4, platelet count 55. ASSESSMENT: Unrelenting multiple organ failure including respiratory failure, renal failure, hypotension, and transaminitis. She has irreversible changes and will likely succumb to this soon. PLAN: Again, I see no chance of recovery from this. Apparently, the family has become somewhat antagonistic about discussing end of life issues. I will try to speak to the parties involved. Job ID: [id number]
[2019-12-31] MEDS: Famotidine 20 MG TAB PO SCH (09:35)
[2019-12-31] MEDS: Aspirin 325 MG TAB PO SCH (09:35)
[2019-12-31 10:21] LABS: Vancomycin, Random 19.5 ug/mL (See Comment)
[2019-12-31] MEDS: Cefepime 0.5 GM in Sodium Chloride 0.9% 100 ML IVPB SCH (12:35)
--- NOTE | 2019-12-31 16:09 | PDOC.HOSPP ---
- Subjective Encounter Date: 12/31/19 Encounter Time: 16:00 Subjective: f/u for septic shock with multi-organ failure on Levophed/mech ventilation/ Cefepime/Vancomycin/Hydrocortisone. Family considering withdrawal and hospice care but no definitive decision to date. - Objective Vital Signs & Weight: Vital Signs (12 hours) Temp Pulse Resp BP Pulse Ox 12/31/19 14:39 70 96/51 L 12/31/19 14:00 24 H 12/31/19 12:00 24 H 12/31/19 10:48 70 94/49 L 12/31/19 10:00 24 H 12/31/19 08:00 24 H 100 12/31/19 07:00 97.7 F 12/31/19 06:35 70 94/46 L 12/31/19 06:00 24 H Weight Admit Weight 221 lb 9.033 oz Weight 243 lb 13.3 oz Most Recent Monitor Data Heart Rate from ECG 69 NIBP 99/51 NIBP BP-Mean 67 Respiration from ECG 24 SpO2 100 I&O: 12/30/19 12/31/19 01/01/20 06:59 06:59 06:59 Intake Total 763.1 788 Output Total 136 155 0 Balance 627.1 633 0 Result Diagrams: 12/31/19 04:10 12/31/19 04:10 Additional Labs: Accuchecks 12/31/19 12/31/19 12/30/19 12:25 08:36 23:45 POC Glucose 188 H 178 H 172 H 12/30/19 12/30/19 19:55 16:21 POC Glucose 169 H 203 H Microbiology 12/22/19 19:54 Venous blood - Right Arm Blood Culture - Final Klebsiella pneumoniae ssp pneu 12/22/19 19:53 Venous blood - Left Arm Blood Culture - Final Klebsiella pneumoniae ssp pneu 12/22/19 19:54 Venous blood - Right Arm Blood Culture - Preliminary Specimen has been received and culture in progress. No Growth to date. 12/22/19 19:54 Venous blood - Right Arm Blood Culture - Preliminary Presumptive Kleb/Enterobacter 12/22/19 19:53 Venous blood - Left Arm Blood Culture - Preliminary Specimen has been received and culture in progress. No Growth to date. 12/22/19 19:53 Venous blood - Left Arm Blood Culture - Preliminary Klebsiella pneumoniae Laboratory Tests 12/22/19 12/22/19 12/22/19 18:01 18:01 18:01 WBC 13.1 H Hgb 8.4 L Plt Count 110 L Neutrophils % (Manual) Band Neuts % (Manual) 37 H Sodium Potassium 5.2 H Carbon Dioxide 13 L BUN 83 H Creatinine 5.72 H Lactic Acid Total Bilirubin AST ALT Troponin I 0.663 H* Random Vancomycin COVID-19 PCR 12/22/19 12/22/19 12/22/19 19:53 21:30 23:33 WBC Hgb Plt Count Neutrophils % (Manual) Band Neuts % (Manual) Sodium Potassium Carbon Dioxide BUN Creatinine Lactic Acid 1.6 Total Bilirubin AST ALT Troponin I 0.727 H* Random Vancomycin COVID-19 PCR Not Detected 12/23/19 12/23/19 12/23/19 05:02 05:02 23:06 WBC Hgb Plt Count Neutrophils % (Manual) 64 Band Neuts % (Manual) 28 H Sodium Potassium Carbon Dioxide BUN Creatinine Lactic Acid Total Bilirubin AST ALT Troponin I 0.636 H* Random Vancomycin 18.9 COVID-19 PCR 12/24/19 12/25/19 12/26/19 05:19 05:08 05:52 WBC 7.6 Hgb 8.1 L 7.7 L Plt Count 83 L 93 L Neutrophils % (Manual) 74 Band Neuts % (Manual) 19 H Sodium Potassium Carbon Dioxide BUN Creatinine 6.60 H Lactic Acid Total Bilirubin AST ALT Troponin I Random Vancomycin COVID-19 PCR 12/26/19 12/27/19 12/27/19 05:52 03:00 03:00 WBC 19.1 H Hgb 7.5 L 8.9 L Plt Count 78 L 102 L Neutrophils % (Manual) Band Neuts % (Manual) Sodium Potassium Carbon Dioxide BUN 111 H Creatinine 6.51 H Lactic Acid Total Bilirubin 2.5 H AST 1598 H ALT 712 H Troponin I Random Vancomycin COVID-19 PCR 12/28/19 12/29/19 12/30/19 08:01 03:30 04:00 WBC Hgb Plt Count Neutrophils % (Manual) Band Neuts % (Manual) Sodium 129 L 127 L 128 L Potassium Carbon Dioxide BUN 103 H 108 H 112 H Creatinine 6.61 H 6.69 H 7.34 H Lactic Acid Total Bilirubin 3.8 H 4.9 H 5.9 H AST 2056 H 2673 H 2910 H ALT 743 H 863 H 933 H Troponin I Random Vancomycin COVID-19 PCR Radiology Reviewed by me: Yes (PCXR - increased opacities in each base, lines/ tubes in position) EKG Reviewed by me: Yes (Tele - SR) Hospitalist ROS - Medication Medications: Active Medications Generic Name Dose Route Start Last Admin Trade Name Freq PRN Reason Stop Dose Admin Aspirin 325 mg 12/25/19 09:00 12/31/19 09:35 Aspirin PO 325 mg DAILY JUAN ANTONIO Administration Dextrose/Water 25 gm 12/23/19 00:11 12/26/19 05:54 Dextrose 50% SLOW IVP 25 gm PRN PRN Administration Hypoglycemia Famotidine 20 mg 12/23/19 09:00 12/31/19 09:35 Pepcid PO 20 mg DAILY JUAN ANTONIO Administration Hydrocortisone Sodium Succinate 50 mg 12/26/19 12:00 12/31/19 12:35 Solu-Cortef IVP 50 mg Q6HR JUAN ANTONIO Administration Cefepime HCl 0.5 gm/ Sodium 100 mls @ 200 mls/hr 12/26/19 12:00 12/31/19 12: 35 Chloride IVPB 100 mls Q24HR JUAN ANTONIO Administration Vancomycin HCl 500 mg/ Sodium 100 mls @ 100 mls/hr 12/26/19 11:15 12/27/19 01 :32 Chloride IVPB 100 mls WILLCALL JUAN ANTONIO Administration Norepinephrine Bitartrate 8 mg 250 mls @ 0 mls/hr 12/26/19 11:39 12/31/19 07: 30 / Dextrose/Water IVPB 250 mls INF PRN Administration TO MAINTAIN MAP > 65 Protocol As Directed Sodium Bicarbonate 150 meq/ 1,150 mls @ 100 mls/hr 12/26/19 12:45 12/27/19 23 :12 Dextrose/Water IV 1,150 mls INF JUAN ANTONIO Administration Vasopressin 40 unit/ 102 mls @ 0 mls/hr 12/26/19 20:15 12/29/19 19:32 Miscellaneous Medication 1 IV 102 mls each/ Sodium Chloride INF JUAN ANTONIO Administration Protocol As Directed Insulin Human Lispro 0 units 12/23/19 00:11 12/28/19 09:37 Humalog SC 3 unit .BEDTIME SLIDING SC PRN Administration Bedtime Correctional Scale Insulin Human Lispro 0 units 12/27/19 17:30 04/23/20 12:44 Humalog SC 2 unit .MODERATE SLIDING SC PRN Administration MODERATE SLIDING SCALE Protocol Lorazepam 2 mg 12/26/19 13:22 12/29/19 09:19 Ativan SLOW IVP 01/25/20 13:22 2 mg Q1H PRN Administration Breakthrough agitation Morphine Sulfate 2 mg 12/26/19 13:22 12/30/19 19:58 Morphine SLOW IVP 01/25/20 13:22 2 mg Q1H PRN Administration BREAKTHROUGH PAIN/Agitation Sodium Chloride 10 ml 12/23/19 00:11 12/25/19 22:18 Flush - Normal Saline IVF 10 ml PRN PRN Administration Saline Flush - Exam General - other findings: somnolent on mech vent ENT: normocephalic atraumatic, no oropharyngeal lesions Neck: supple, symmetric, no thyromegaly, no lymphadenopathy Heart: RRR, no gallops, no rubs, normal peripheral pulses Respiratory: no tachypnea Respiratory - other findings: diminished bilat, + crackles Gastrointestinal: soft, no guarding, distended, diminished bowl sounds Gastrointestinal - other findings: [place] with scant urine Extremities: 2+ LE edema Extremities - other findings: 3+ edema in UE's Skin: normal turgor Psychiatric: somnolent, lethargic Hosp A/P (1) Sepsis due to urinary tract infection Code(s): A41.9 - SEPSIS, UNSPECIFIED ORGANISM; N39.0 - URINARY TRACT INFECTION, SITE NOT SPECIFIED Status: Acute Plan: Persistent with multi-organ failure, progressive, continue Cefepime/Vanc/ Levophed (2) Bacteremia Code(s): R78.81 - BACTEREMIA Status: Acute Plan: Klebsiella spp, continue Cefepime (3) Acute kidney injury superimposed on CKD Code(s): N17.9 - ACUTE KIDNEY FAILURE, UNSPECIFIED; N18.9 - CHRONIC KIDNEY DISEASE, UNSPECIFIED Status: Acute Plan: Worsening renal failure, likely end-stage process (4) NSTEMI (non-ST elevated myocardial infarction) Code(s): I21.4 - NON-ST ELEVATION (NSTEMI) MYOCARDIAL INFARCTION Status: Acute (5) Anemia in CKD (chronic kidney disease) Code(s): N18.9 - CHRONIC KIDNEY DISEASE, UNSPECIFIED; D63.1 - ANEMIA IN CHRONIC KIDNEY DISEASE Status: Chronic (6) DM type 2 (diabetes mellitus, type 2) Status: Chronic Qualifiers: Diabetes mellitus mcc insulin use: without medical terminologist use Diabetes mellitus complication status: with kidney complications Diabetes mellitus complication detail: with chronic kidney disease Chronic kidney disease stage : stage 2 (mild) Qualified Code(s): E11.22 - Type 2 diabetes mellitus with diabetic chronic kidney disease; N18.2 - Chronic kidney disease, stage 2 (mild) (7) HTN (hypertension) Code(s): I10 - ESSENTIAL (PRIMARY) HYPERTENSION Status: Chronic Qualifiers: Hypertension type: essential hypertension Qualified Code(s): I10 - Essential (primary) hypertension Plan: Actual hypotension on Levophed infusion - Plan continue antibiotics, social 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
[2020-01-01] MEDS: Hydrocortisone Sod Succ/PF 100 mg/2 ml Vial IVP SCH ×5 (00:09→23:50)
[2020-01-01] MEDS: HumaLOG 300 UNITS/3 ML VIAL SC PRN ×5 (00:10→16:43)
[2020-01-01] MEDS: Norepinephrine 8 MG/0.9% NS 250 ML IVPB SCH ×4 (04:02→23:50)
[2020-01-01 04:38] LABS: Vancomycin, Random 18.7 ug/mL (See Comment)
[2020-01-01 04:40] LABS: ALT (SGPT) 537 U/L (8-55); AST (SGOT) 828 U/L (5-34); Albumin 1.7 g/dL (3.4-4.8); Alkaline Phosphatase 652 U/L (40-110); Anion Gap 24 mmol/L (10-20); Bilirubin, Total 3.8 mg/dL (0.2-1.2); Calc. Creatinine Clearance 9 mL/min (70-130); Carbon Dioxide 10 mmol/L (23-31); Chloride 97 mmol/L (98-107); Estimated GFR-MDRD 5; Globulin 2.9 g/dL (2.4-3.5); Glucose 189 mg/dL (83-110); Potassium 5.6 mmol/L (3.5-5.1); Protein, Total 4.6 g/dL (6.0-8.3); Sodium 125 mmol/L (136-145)
[2020-01-01 04:45] LABS: Calcium 5.6 mg/dL (7.8-10.44)
[2020-01-01 04:54] LABS: BUN (Urea Nitrogen) 120 mg/dL (9.8-20.1)
[2020-01-01] MEDS ORDERED: Calcium Gluconate 4.6 MEQ in Sodium Chloride 0.9% 100 ML IVPB SCH (06:00)
--- NOTE | 2020-01-01 07:09 | PRG ---
DATE OF SERVICE: 01/01/2020 TIME SPENT: Thirty five minutes of critical care time. SUBJECTIVE: This patient remains moribund in the ICU on mechanical ventilation. We have not been able to get a hold of the family. They are not returning calls. OBJECTIVE: VITAL SIGNS: Temperature is 96.6, pulse 71, blood pressure 114/67, 24-hour intake 842, output 31, weight 245 pounds. HEENT: Unremarkable. Periorbital and perioral edema. NECK: No JVD. LUNGS: Coarse breath sounds. CARDIOVASCULAR: S1, S2. Regular. ABDOMEN: Obese, soft. EXTREMITIES: 4+ edema throughout. LABORATORY DATA: Sodium 125, potassium 5.6, chloride 97, CO2 10, BUN 120, creatinine 8.5, glucose 189, calcium 5.6. AST 820, ALT 537. ASSESSMENT: As per my note yesterday, the patient had unrelenting multiple organ failure including respiratory failure, renal failure, hypotension and transaminitis. Her acidosis and hyperkalemia from her renal failure are beginning to become critical to the point where she will probably arrest. Nephrology has said she is not a candidate for dialysis. RECOMMENDATION: I would again recommend palliative care as there is no hope for survival. The above encompassed 30 minutes of critical care time. Job ID: [id number]
[2020-01-01] MEDS: Famotidine 20 MG TAB PO SCH (08:24)
[2020-01-01] MEDS: Aspirin 325 MG TAB PO SCH (08:25)
--- NOTE | 2020-01-01 10:55 | PDOC.PALPN ---
Palliative Progress Note - Subjective Mechanically ventilated, encephalopathic - Objective Vital Signs: Vital Signs - Most Recent Temp Pulse Resp BP Pulse Ox 97.0 F L 75 24 H 115/64 100 01/01/20 07:00 01/01/20 10:27 01/01/20 06:00 01/01/20 04:09 12/31/19 20:00 - Physical Exam Constitutional: encephalitic, ill appearing HEENT: EOMI, moist MMs Respiratory: diminished lung sound Deviation from normal: mechanical ventilation, slight adventicious sounds Cardiovascular: RRR Gastrointestinal: soft, incontinent Genitourinary: woodruff catheter Musculoskeletal: edema present, diffuse muscle atrophy Deviation from normal: pallor Deviation from normal: encephalopathic - Assessment (1) Palliative care encounter Code(s): Z51.5 - ENCOUNTER FOR PALLIATIVE CARE Current Visit: Yes Status: Acute (2) Physical deconditioning Code(s): R53.81 - OTHER MALAISE Current Visit: Yes Status: Acute (3) Acute renal failure superimposed on stage 5 chronic kidney disease, not on chronic dialysis Code(s): N17.9 - ACUTE KIDNEY FAILURE, UNSPECIFIED; N18.5 - CHRONIC KIDNEY DISEASE, STAGE 5 Current Visit: Yes Status: Acute (4) Sepsis due to urinary tract infection Code(s): A41.9 - SEPSIS, UNSPECIFIED ORGANISM; N39.0 - URINARY TRACT INFECTION, SITE NOT SPECIFIED Current Visit: Yes Status: Acute (5) Diastolic congestive heart failure Code(s): I50.30 - UNSPECIFIED DIASTOLIC (CONGESTIVE) HEART FAILURE Current Visit: Yes Status: Chronic Qualifiers: Heart failure chronicity: chronic Qualified Code(s): I50.32 - Chronic diastolic (congestive) heart failure (6) Chronic anemia Code(s): D64.9 - ANEMIA, UNSPECIFIED Current Visit: No Status: Chronic (7) Obesity Code(s): E66.9 - OBESITY, UNSPECIFIED Current Visit: No Status: Chronic Qualifiers: Obesity classification: adult class 3 (BMI >= 40) Body mass index: BMI 40.0 -44.9 - Plan Plan: Palliative Care Team continues to communicate with Ms Se albrecht in relation to goal of care and poor prognosis. Consideration to compassionate extubation with possible hospice consult. Natasha Joiner RNmarketing mgr attempting to establish a meeting time for today, no answer on phones this morning/awaiting a return phone call. [20] minutes spent on this encounter with >50% of the time in counseling and coordination of care. - ROS Non Response: due to endotracheal tube, due to mental status
[2020-01-01] MEDS: Cefepime 0.5 GM in Sodium Chloride 0.9% 100 ML IVPB SCH (11:53)
--- NOTE | 2020-01-01 13:25 | PDOC.HOSPP ---
- Subjective Encounter Date: 01/01/20 Encounter Time: 13:20 Subjective: f/u for resp failure on mech vent with septic shock due to UTI tx with Cefepime/ Vanc/Hydrocortisone/Levophed. Remains [facility] ventilated and sedated. Family meeting pending to discuss goals of care. - Objective Vital Signs & Weight: Vital Signs (12 hours) Temp Pulse Resp BP Pulse Ox 01/01/20 11:24 97.5 F L 01/01/20 10:27 75 01/01/20 08:00 100 01/01/20 07:03 71 01/01/20 07:00 97.0 F L 01/01/20 06:00 24 H 01/01/20 04:09 76 115/64 01/01/20 04:00 96.6 F L 01/01/20 02:00 24 H Weight Admit Weight 221 lb 9.033 oz Weight 245 lb 2.464 oz Most Recent Monitor Data Heart Rate from ECG 75 NIBP 109/59 NIBP BP-Mean 75 Respiration from ECG 24 SpO2 99 I&O: 12/31/19 01/01/20 01/02/20 06:59 06:59 06:59 Intake Total 788 842 140 Output Total 155 31 Balance 633 811 140 Result Diagrams: 12/31/19 04:10 01/01/20 03:30 Additional Labs: Accuchecks 01/01/20 01/01/20 01/01/20 11:20 08:28 04:00 POC Glucose 185 H 200 H 213 H 01/01/20 12/31/19 12/31/19 00:03 21:06 16:15 POC Glucose 203 H 208 H 200 H Microbiology 12/22/19 19:54 Venous blood - Right Arm Blood Culture - Final Klebsiella pneumoniae ssp pneu 12/22/19 19:53 Venous blood - Left Arm Blood Culture - Final Klebsiella pneumoniae ssp pneu 12/22/19 19:54 Venous blood - Right Arm Blood Culture - Preliminary Specimen has been received and culture in progress. No Growth to date. 12/22/19 19:54 Venous blood - Right Arm Blood Culture - Preliminary Presumptive Kleb/Enterobacter 12/22/19 19:53 Venous blood - Left Arm Blood Culture - Preliminary Specimen has been received and culture in progress. No Growth to date. 12/22/19 19:53 Venous blood - Left Arm Blood Culture - Preliminary Klebsiella pneumoniae Laboratory Tests 12/22/19 12/22/19 12/22/19 18:01 18:01 18:01 WBC 13.1 H Hgb 8.4 L Plt Count 110 L Neutrophils % (Manual) Band Neuts % (Manual) 37 H Sodium Potassium 5.2 H Carbon Dioxide 13 L BUN 83 H Creatinine 5.72 H Lactic Acid Total Bilirubin AST ALT Alkaline Phosphatase Troponin I 0.663 H* Random Vancomycin COVID-19 PCR 12/22/19 12/22/19 12/22/19 19:53 21:30 23:33 WBC Hgb Plt Count Neutrophils % (Manual) Band Neuts % (Manual) Sodium Potassium Carbon Dioxide BUN Creatinine Lactic Acid 1.6 Total Bilirubin AST ALT Alkaline Phosphatase Troponin I 0.727 H* Random Vancomycin COVID-19 PCR Not Detected 12/23/19 12/23/19 12/23/19 05:02 05:02 23:06 WBC Hgb Plt Count Neutrophils % (Manual) 64 Band Neuts % (Manual) 28 H Sodium Potassium Carbon Dioxide BUN Creatinine Lactic Acid Total Bilirubin AST ALT Alkaline Phosphatase Troponin I 0.636 H* Random Vancomycin 18.9 COVID-19 PCR 12/24/19 12/25/19 12/26/19 05:19 05:08 05:52 WBC 7.6 Hgb 8.1 L 7.7 L Plt Count 83 L 93 L Neutrophils % (Manual) 74 Band Neuts % (Manual) 19 H Sodium Potassium Carbon Dioxide BUN Creatinine 6.60 H Lactic Acid Total Bilirubin AST ALT Alkaline Phosphatase Troponin I Random Vancomycin COVID-19 PCR 12/26/19 12/27/19 12/27/19 05:52 03:00 03:00 WBC 19.1 H Hgb 7.5 L 8.9 L Plt Count 78 L 102 L Neutrophils % (Manual) Band Neuts % (Manual) Sodium Potassium Carbon Dioxide BUN 111 H Creatinine 6.51 H Lactic Acid Total Bilirubin 2.5 H AST 1598 H ALT 712 H Alkaline Phosphatase Troponin I Random Vancomycin COVID-19 PCR 12/28/19 12/29/19 12/30/19 08:01 03:30 04:00 WBC Hgb Plt Count Neutrophils % (Manual) Band Neuts % (Manual) Sodium 129 L 127 L 128 L Potassium Carbon Dioxide BUN 103 H 108 H 112 H Creatinine 6.61 H 6.69 H 7.34 H Lactic Acid Total Bilirubin 3.8 H 4.9 H 5.9 H AST 2056 H 2673 H 2910 H ALT 743 H 863 H 933 H Alkaline Phosphatase Troponin I Random Vancomycin COVID-19 PCR 01/01/20 03:30 WBC Hgb Plt Count Neutrophils % (Manual) Band Neuts % (Manual) Sodium Potassium Carbon Dioxide BUN Creatinine Lactic Acid Total Bilirubin 3.8 H AST 828 H ALT 537 H Alkaline Phosphatase 652 H Troponin I Random Vancomycin COVID- PCR EKG Reviewed by me: Yes (Tele - ) Hospitalist ROS - Medication Medications: Active Medications Generic Name Dose Route Start Last Admin Trade Name Freq PRN Reason Stop Dose Admin Aspirin 325 mg 12/25/19 09:00 01/01/20 08:25 Aspirin PO 325 mg DAILY JUAN ANTONIO Administration Dextrose/Water 25 gm 12/23/19 00:11 12/26/19 05:54 Dextrose 50% SLOW IVP 25 gm PRN PRN Administration Hypoglycemia Famotidine 20 mg 12/23/19 09:00 01/01/20 08:24 Pepcid PO 20 mg DAILY JUAN ANTONIO Administration Hydrocortisone Sodium Succinate 50 mg 12/26/19 12:00 01/01/20 11:14 Solu-Cortef IVP 50 mg Q6HR JUAN ANTONIO Administration Cefepime HCl 0.5 gm/ Sodium 100 mls @ 200 mls/hr 12/26/19 12:00 01/01/20 11: 53 Chloride IVPB 100 mls Q24HR JUAN ANTONIO Administration Vancomycin HCl 500 mg/ Sodium 100 mls @ 100 mls/hr 12/26/19 11:15 12/27/19 01 :32 Chloride IVPB 100 mls WILLCALL JUAN ANTONIO Administration Sodium Bicarbonate 150 meq/ 1,150 mls @ 100 mls/hr 12/26/19 12:45 12/27/19 23 :12 Dextrose/Water IV 1,150 mls INF JUAN ANTONIO Administration Vasopressin 40 unit/ 102 mls @ 0 mls/hr 12/26/19 20:15 12/29/19 19:32 Miscellaneous Medication 1 IV 102 mls each/ Sodium Chloride INF JUAN ANTONIO Administration Protocol As Directed Norepinephrine Bitartrate 250 mls @ 0 mls/hr 01/01/20 00:31 01/01/20 11:08 Levophed IVPB 250 mls INF JUAN ANTONIO Administration Protocol Titrate Insulin Human Lispro 0 units 12/23/19 00:11 12/28/19 09:37 Humalog SC 3 unit .BEDTIME SLIDING SC PRN Administration Bedtime Correctional Scale Insulin Human Lispro 0 units 12/27/19 17:30 01/01/20 11:17 Humalog SC 2 unit .MODERATE SLIDING SC PRN Administration MODERATE SLIDING SCALE Protocol Lorazepam 2 mg 12/26/19 13:22 12/29/19 09:19 Ativan SLOW IVP 01/25/20 13:22 2 mg Q1H PRN Administration Breakthrough agitation Morphine Sulfate 2 mg 12/26/19 13:22 12/30/19 19:58 Morphine SLOW IVP 01/25/20 13:22 2 mg Q1H PRN Administration BREAKTHROUGH PAIN/Agitation Sodium Chloride 10 ml 12/23/19 00:11 12/25/19 22:18 Flush - Normal Saline IVF 10 ml PRN PRN Administration Saline Flush - Exam General - other findings: sedate on mech ventilation ENT: normocephalic atraumatic ENT - other findings: dried blood on lips, ETT in place Neck: supple, symmetric, no thyromegaly Heart: RRR, no gallops, no rubs, diminshed peripheral pulses Heart - other findings: S1, S2 Respiratory: no rales, no ronchi, no tachypnea Respiratory - other findings: diminished in bases Gastrointestinal: soft, non-tender, non-distended, normal bowel sounds Extremities: no cyanosis, 2+ LE edema Skin: normal turgor Psychiatric: somnolent, lethargic Hosp A/P (1) Sepsis due to urinary tract infection Code(s): A41.9 - SEPSIS, UNSPECIFIED ORGANISM; N39.0 - URINARY TRACT INFECTION, SITE NOT SPECIFIED Status: Acute Plan: Remains in critical condition with deterioration despite maximal intervention, continue Cefepime/Vancomycin (2) Bacteremia Code(s): R78.81 - BACTEREMIA Status: Acute Plan: Continue Cefepime/Vancomycin (3) Acute kidney injury superimposed on CKD Code(s): N17.9 - ACUTE KIDNEY FAILURE, UNSPECIFIED; N18.9 - CHRONIC KIDNEY DISEASE, UNSPECIFIED Status: Acute Plan: Worsening renal failure with resultant metabolic derangement, not a candidate for HD (4) NSTEMI (non-ST elevated myocardial infarction) Code(s): I21.4 - NON-ST ELEVATION (NSTEMI) MYOCARDIAL INFARCTION Status: Acute (5) Anemia in CKD (chronic kidney disease) Code(s): N18.9 - CHRONIC KIDNEY DISEASE, UNSPECIFIED; D63.1 - ANEMIA IN CHRONIC KIDNEY DISEASE Status: Chronic (6) DM type 2 (diabetes mellitus, type 2) Status: Chronic Qualifiers: Diabetes mellitus intermediate manager insulin use: without residential use Diabetes mellitus complication status: with kidney complications Diabetes mellitus complication detail: with chronic kidney disease Chronic kidney disease stage : stage 2 (mild) Qualified Code(s): E11.22 - Type 2 diabetes mellitus with diabetic chronic kidney disease; N18.2 - Chronic kidney disease, stage 2 (mild) (7) HTN (hypertension) Code(s): I10 - ESSENTIAL (PRIMARY) HYPERTENSION Status: Chronic Qualifiers: Hypertension type: essential hypertension Qualified Code(s): I10 - Essential (primary) hypertension - Plan continue antibiotics, 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
[2020-01-02] MEDS: HumaLOG 300 UNITS/3 ML VIAL SC PRN ×5 (05:16→19:59)
[2020-01-02] MEDS: Hydrocortisone Sod Succ/PF 100 mg/2 ml Vial IVP SCH ×3 (05:16→17:28)
[2020-01-02 05:31] LABS: ALT (SGPT) 409 U/L (8-55); AST (SGOT) 440 U/L (5-34); Albumin 1.9 g/dL (3.4-4.8); Alkaline Phosphatase 551 U/L (40-110); Anion Gap 27 mmol/L (10-20); Bilirubin, Total 2.9 mg/dL (0.2-1.2); Calc. Creatinine Clearance 9 mL/min (70-130); Calcium 5.4 mg/dL (7.8-10.44); Carbon Dioxide 8 mmol/L (23-31); Chloride 98 mmol/L (98-107); Estimated GFR-MDRD 4; Glucose 197 mg/dL (83-110); Potassium 6.7 mmol/L (3.5-5.1); Protein, Total 4.9 g/dL (6.0-8.3); Sodium 126 mmol/L (136-145)
[2020-01-02 05:39] LABS: BUN (Urea Nitrogen) 131 mg/dL (9.8-20.1)
[2020-01-02] MEDS ORDERED: Sodium Bicarb 50 MEQ/50 ML Abboject 8.4% SYRINGE IVP SCH (06:45)
[2020-01-02] MEDS ORDERED: Calcium Gluconate 4.6 MEQ in Sodium Chloride 0.9% 100 ML IVPB SCH (06:45)
[2020-01-02] MEDS ORDERED: Dextrose 50% Abboject 50 ML SYRINGE SLOW IVP SCH (06:45)
[2020-01-02] MEDS ORDERED: Insulin Regular 300 UNITS/3 ML VIAL IVP SCH (06:45)
[2020-01-02] MEDS: Aspirin 325 MG TAB PO SCH (08:52)
[2020-01-02] MEDS: Famotidine 20 MG TAB PO SCH (08:52)
--- NOTE | 2020-01-02 10:10 | PRG ---
DATE OF SERVICE: SUBJECTIVE: An 84-year-old female, chemical code only. She has multiple abnormalities, unresponsive on the vent, unable to contact family anymore. OBJECTIVE: VITAL SIGNS: Apparently, according to the nurses, pulse 73, respiratory rate , sats 99%, blood pressure 96/48. GENERAL: Unresponsive. CHEST: Decreased breath sounds, no wheezing. CARDIAC: Normal S1, S2. No gallop. ABDOMEN: No masses. LABORATORY DATA: Multiple abnormalities. Potassium is 6.7, BUN and creatinine 131 and 8.96. Elevated liver function. ASSESSMENT: Multiorgan failure, renal failure with shock, encephalopathy, sepsis, obesity. PLAN: Comfort care. Job ID: [id number]
[2020-01-02] MEDS: Cefepime 0.5 GM in Sodium Chloride 0.9% 100 ML IVPB SCH (12:26)
--- NOTE | 2020-01-02 12:58 | PDOC.HOSPP ---
- Subjective Encounter Date: 01/02/20 Encounter Time: 12:45 Subjective: f/u for resp failure [facility] vent[facility] and unresponsive. Receiving Vanc/Cefepime/ Hydrocortisone/Levophed. - Objective Vital Signs & Weight: Vital Signs (12 hours) Temp Pulse Resp BP Pulse Ox 01/02/20 12:00 24 H 01/02/20 10:43 71 01/02/20 10:00 24 H 01/02/20 08:00 97.7 F 24 H 01/02/20 07:38 100 01/02/20 06:52 69 01/02/20 06:00 24 H 01/02/20 04:00 97.5 F L 24 H 01/02/20 02:26 65 101/42 L 01/02/20 02:00 24 H Weight Admit Weight 212 lb Weight 254 lb 13.67 oz Most Recent Monitor Data Heart Rate from ECG 72 NIBP 119/55 NIBP BP-Mean 76 Respiration from ECG 24 SpO2 100 I&O: 01/01/20 01/02/20 01/03/20 06:59 06:59 06:59 Intake Total 842 1433 Output Total 31 123 0 Balance 811 1310 0 Result Diagrams: 12/31/19 04:10 01/02/20 04:45 Additional Labs: Accuchecks 01/02/20 01/02/20 01/02/20 12:05 09:02 04:54 POC Glucose 220 H 262 H 200 H 01/01/20 01/01/20 01/01/20 23:57 20:34 16:46 POC Glucose 186 H 166 H 169 H Microbiology 12/22/19 19:54 Venous blood - Right Arm Blood Culture - Final Klebsiella pneumoniae ssp pneu 12/22/19 19:53 Venous blood - Left Arm Blood Culture - Final Klebsiella pneumoniae ssp pneu 12/22/19 19:54 Venous blood - Right Arm Blood Culture - Preliminary Specimen has been received and culture in progress. No Growth to date. 12/22/19 19:54 Venous blood - Right Arm Blood Culture - Preliminary Presumptive Kleb/Enterobacter 12/22/19 19:53 Venous blood - Left Arm Blood Culture - Preliminary Specimen has been received and culture in progress. No Growth to date. 12/22/19 19:53 Venous blood - Left Arm Blood Culture - Preliminary Klebsiella pneumoniae Laboratory Tests 12/22/19 12/22/1920 18:01 18:01 18:01 WBC 13.1 H Hgb 8.4 L Plt Count 110 L Neutrophils % (Manual) Band Neuts % (Manual) 37 H Sodium Potassium 5.2 H Carbon Dioxide 13 L BUN 83 H Creatinine 5.72 H Lactic Acid Total Bilirubin AST ALT Alkaline Phosphatase Troponin I 0.663 H* Random Vancomycin COVID-19 PCR 12/22/19 12/22/19 12/22/19 19:53 21:30 23:33 WBC Hgb Plt Count Neutrophils % (Manual) Band Neuts % (Manual) Sodium Potassium Carbon Dioxide BUN Creatinine Lactic Acid 1.6 Total Bilirubin AST ALT Alkaline Phosphatase Troponin I 0.727 H* Random Vancomycin COVID-19 PCR Not Detected 12/23/19 12/23/19 12/23/19 05:02 05:02 23:06 WBC Hgb Plt Count Neutrophils % (Manual) 64 Band Neuts % (Manual) 28 H Sodium Potassium Carbon Dioxide BUN Creatinine Lactic Acid Total Bilirubin AST ALT Alkaline Phosphatase Troponin I 0.636 H* Random Vancomycin 18.9 COVID-19 PCR 12/24/19 12/25/19 12/26/19 05:19 05:08 05:52 WBC 7.6 Hgb 8.1 L 7.7 L Plt Count 83 L 93 L Neutrophils % (Manual) 74 Band Neuts % (Manual) 19 H Sodium Potassium Carbon Dioxide BUN Creatinine 6.60 H Lactic Acid Total Bilirubin AST ALT Alkaline Phosphatase Troponin I Random Vancomycin COVID-19 PCR 12/26/19 12/27/19 12/27/19 05:52 03:00 03:00 WBC 19.1 H Hgb 7.5 L 8.9 L Plt Count 78 L 102 L Neutrophils % (Manual) Band Neuts % (Manual) Sodium Potassium Carbon Dioxide BUN 111 H Creatinine 6.51 H Lactic Acid Total Bilirubin 2.5 H AST 1598 H ALT 712 H Alkaline Phosphatase Troponin I Random Vancomycin COVID-19 PCR 12/28/19 12/29/19 12/30/19 08:01 03:30 04:00 WBC Hgb Plt Count Neutrophils % (Manual) Band Neuts % (Manual) Sodium 129 L 127 L 128 L Potassium Carbon Dioxide 15 L BUN 103 H 108 H 112 H Creatinine 6.61 H 6.69 H 7.34 H Lactic Acid Total Bilirubin 3.8 H 4.9 H 5.9 H AST 2056 H 2673 H 2910 H ALT 743 H 863 H 933 H Alkaline Phosphatase Troponin I Random Vancomycin COVID-19 PCR 12/31/19 01/01/20 04:10 03:30 WBC Hgb Plt Count Neutrophils % (Manual) Band Neuts % (Manual) Sodium Potassium 5.2 H 5.6 H Carbon Dioxide 14 L 10 L BUN Creatinine Lactic Acid Total Bilirubin 3.8 H AST 828 H ALT 537 H Alkaline Phosphatase 652 H Troponin I Random Vancomycin - PCR EKG Reviewed by me: Yes (Tele - SR) Hospitalist ROS - Medication Medications: Active Medications Generic Name Dose Route Start Last Admin Trade Name Freq PRN Reason Stop Dose Admin Aspirin 325 mg 12/25/19 09:00 01/02/20 08:52 Aspirin PO 325 mg DAILY JUAN ANTONIO Administration Dextrose/Water 25 gm 12/23/19 00:11 12/26/19 05:54 Dextrose 50% SLOW IVP 25 gm PRN PRN Administration Hypoglycemia Famotidine 20 mg 12/23/19 09:00 01/02/20 08:52 Pepcid PO 20 mg DAILY JUAN ANTONIO Administration Hydrocortisone Sodium Succinate 50 mg 12/26/19 12:00 01/02/20 12:29 Solu-Cortef IVP 50 mg Q6HR JUAN ANTONIO Administration Cefepime HCl 0.5 gm/ Sodium 100 mls @ 200 mls/hr 12/26/19 12:00 01/02/20 12: 26 Chloride IVPB 100 mls Q24HR JUAN ANTONIO Administration Vancomycin HCl 500 mg/ Sodium 100 mls @ 100 mls/hr 12/26/19 11:15 12/27/19 01 :32 Chloride IVPB 100 mls WILLCALL JUAN ANTONIO Administration Sodium Bicarbonate 150 meq/ 1,150 mls @ 100 mls/hr 12/26/19 12:45 12/27/19 23 :12 Dextrose/Water IV 1,150 mls INF JUAN ANTONIO Administration Vasopressin 40 unit/ 102 mls @ 0 mls/hr 12/26/19 20:15 12/29/19 19:32 Miscellaneous Medication 1 IV 102 mls each/ Sodium Chloride INF JUAN ANTONIO Administration Protocol As Directed Norepinephrine Bitartrate 250 mls @ 0 mls/hr 01/01/20 00:31 01/01/20 23:50 Levophed IVPB 250 mls INF JUAN ANTONIO Administration Protocol Titrate Insulin Human Lispro 0 units 12/23/19 00:11 12/28/19 09:37 Humalog SC 3 unit .BEDTIME SLIDING SC PRN Administration Bedtime Correctional Scale Insulin Human Lispro 0 units 12/27/19 17:30 01/02/20 12:32 Humalog SC 4 unit .MODERATE SLIDING SC PRN Administration MODERATE SLIDING SCALE Protocol Lorazepam 2 mg 12/26/19 13:22 12/29/19 09:19 Ativan SLOW IVP 01/25/20 13:22 2 mg Q1H PRN Administration Breakthrough agitation Morphine Sulfate 2 mg 12/26/19 13:22 12/30/19 19:58 Morphine SLOW IVP 01/25/20 13:22 2 mg Q1H PRN Administration BREAKTHROUGH PAIN/Agitation Sodium Chloride 10 ml 12/23/19 00:11 12/25/19 22:18 Flush - Normal Saline IVF 10 ml PRN PRN Administration Saline Flush - Exam General Appearance: ill appearing General - other findings: sedate on mech vent, eyes open but no tracking ENT: normocephalic atraumatic ENT - other findings: dried blood on lips, ETT in place Neck: supple, symmetric, no JVD, no thyromegaly Heart: RRR, no gallops, no rubs Heart - other findings: S1, S2 Respiratory: no rales, no tachypnea Respiratory - other findings: diminished in bases Gastrointestinal: soft, non-distended, normal bowel sounds Gastrointestinal - other findings: obese Extremities: 2+ LE edema Extremities - other findings: BUE edema Skin: normal turgor Neurological - other findings: unresponsive to stimuli, eyes not tracking Psychiatric: somnolent, lethargic Hosp A/P (1) Sepsis due to urinary tract infection Code(s): A41.9 - SEPSIS, UNSPECIFIED ORGANISM; N39.0 - URINARY TRACT INFECTION, SITE NOT SPECIFIED Status: Acute Plan: Continue Vanc/Cefepime (2) Bacteremia Code(s): R78.81 - BACTEREMIA Status: Acute Plan: Klebsiella spp on 2/2 blood cx, continue IV abx as above (3) Acute kidney injury superimposed on CKD Code(s): N17.9 - ACUTE KIDNEY FAILURE, UNSPECIFIED; N18.9 - CHRONIC KIDNEY DISEASE, UNSPECIFIED Status: Acute Plan: Worsening failure, end-stage (4) Hyperkalemia Code(s): E87.5 - HYPERKALEMIA Status: Acute Plan: Worsening, life-threatening levels, Calcium Gluconate IV, D50, Insulin, Sodium bicarbonate (5) NSTEMI (non-ST elevated myocardial infarction) Code(s): I21.4 - NON-ST ELEVATION (NSTEMI) MYOCARDIAL INFARCTION Status: Acute (6) Anemia in CKD (chronic kidney disease) Code(s): N18.9 - CHRONIC KIDNEY DISEASE, UNSPECIFIED; D63.1 - ANEMIA IN CHRONIC KIDNEY DISEASE Status: Chronic (7) DM type 2 (diabetes mellitus, type 2) Status: Chronic Qualifiers: Diabetes mellitus local intermodal truck driver insulin use: without local intermodal truck driver use Diabetes mellitus complication status: with kidney complications Diabetes mellitus complication detail: with chronic kidney disease Chronic kidney disease stage : stage 2 (mild) Qualified Code(s): E11.22 - Type 2 diabetes mellitus with diabetic chronic kidney disease; N18.2 - Chronic kidney disease, stage 2 (mild) (8) HTN (hypertension) Code(s): I10 - ESSENTIAL (PRIMARY) HYPERTENSION Status: Chronic Qualifiers: Hypertension type: essential hypertension Qualified Code(s): I10 - Essential (primary) hypertension - Plan continue antibiotics, hospice social worker, respiratory therapy Consults: Palliative Care Stable currently Continue supportive mgmt Continue Cefepime/Vancomycin Levophed for pressor support COVID-19 ruled out Palliative care consult/?hospice Awaiting family meeting to discuss goals of care AM lab: CMP, Vanc trough Poor prognosis
[2020-01-02] MEDS ORDERED: Norepinephrine 8 MG in Dextrose 5% in Water 242 ML IVPB PRN (14:42)
[2020-01-03] MEDS: Hydrocortisone Sod Succ/PF 100 mg/2 ml Vial IVP SCH ×4 (00:17→17:59)
[2020-01-03] MEDS: HumaLOG 300 UNITS/3 ML VIAL SC PRN ×6 (01:04→20:35)
[2020-01-03 07:05] LABS: ALT (SGPT) 289 U/L (8-55); AST (SGOT) 249 U/L (5-34); Albumin 1.8 g/dL (3.4-4.8); Alkaline Phosphatase 399 U/L (40-110); Anion Gap 26 mmol/L (10-20); BUN (Urea Nitrogen) 141 mg/dL (9.8-20.1); Calc. Creatinine Clearance 8 mL/min (70-130); Calcium 5.1 mg/dL (7.8-10.44); Carbon Dioxide 10 mmol/L (23-31); Chloride 99 mmol/L (98-107); Estimated GFR-MDRD 4; Globulin 2.7 g/dL (2.4-3.5); Glucose 202 mg/dL (83-110); Potassium 6.9 mmol/L (3.5-5.1); Protein, Total 4.5 g/dL (6.0-8.3); Sodium 128 mmol/L (136-145)
[2020-01-03 08:01] LABS: Vancomycin, Random 16.9 ug/mL (See Comment)
[2020-01-03] MEDS: Aspirin 325 MG TAB PO SCH (08:45)
[2020-01-03] MEDS: Famotidine 20 MG TAB PO SCH (08:45)
--- NOTE | 2020-01-03 11:29 | PRG ---
DATE OF SERVICE: 01/03/2020 SUBJECTIVE: An 84-year-old female remains intubated in the vent. Unable to contact any family members, unfortunately none arriving. She has an A-line for 9 days, this is going to be discontinued. OBJECTIVE: VITAL SIGNS: Pulse 51, . CHEST: Rhonchi. CARDIAC: Sinus tach. ABDOMEN: Soft. NEUROLOGICAL: Encephalopathic. LABORATORY DATA: Sodium 128, potassium 6.9, BUN and creatinine 141 and 9.5, calcium 5.1. ASSESSMENT: Abnormal liver function, multiorgan failure, renal failure, respiratory failure, encephalopathy, unable to contact family, sepsis. PLAN: Comfort care. She is chemical code only. Job ID: [id number]
[2020-01-03] MEDS: Cefepime 0.5 GM in Sodium Chloride 0.9% 100 ML IVPB SCH (12:35)
--- NOTE | 2020-01-03 13:04 | PDOC.HOSPP ---
- Subjective Encounter Date: 01/03/20 Encounter Time: 13:05 Subjective: f/u for resp failure, multiorgan failure and sepsis on Cefepime/Vancomycin/ Hydrocortisone. Remains on mech ventilation without significant change. - Objective Vital Signs & Weight: Vital Signs (12 hours) Temp Pulse Resp Pulse Ox 01/03/20 12:00 24 H 01/03/20 10:31 54 L 01/03/20 10:00 98 F 24 H 01/03/20 08:00 96.7 F L 24 H 100 01/03/20 07:23 55 L 01/03/20 06:00 24 H 01/03/20 04:00 97.5 F L 24 H 01/03/20 02:53 55 L 01/03/20 02:00 24 H Weight Admit Weight 212 lb Weight 254 lb 13.67 oz Most Recent Monitor Data Heart Rate from ECG 49 NIBP 100/37 NIBP BP-Mean 58 Respiration from ECG 24 SpO2 100 I&O: 01/02/20 01/03/20 01/04/20 06:59 06:59 06:59 Intake Total 1433 1611 50 Output Total 123 10 10 Balance 1310 1601 40 Result Diagrams: 12/31/19 04:10 01/03/20 06:15 Additional Labs: Accuchecks 01/03/20 01/03/20 01/03/20 08:10 05:25 01:05 POC Glucose 214 H 216 H 214 H 01/02/20 01/02/20 20:02 17:32 POC Glucose 212 H 203 H Microbiology 12/22/19 19:54 Venous blood - Right Arm Blood Culture - Final Klebsiella pneumoniae ssp pneu 12/22/19 19:53 Venous blood - Left Arm Blood Culture - Final Klebsiella pneumoniae ssp pneu 12/22/19 19:54 Venous blood - Right Arm Blood Culture - Preliminary Specimen has been received and culture in progress. No Growth to date. 12/22/19 19:54 Venous blood - Right Arm Blood Culture - Preliminary Presumptive Kleb/Enterobacter 12/22/19 19:53 Venous blood - Left Arm Blood Culture - Preliminary Specimen has been received and culture in progress. No Growth to date. 12/22/19 19:53 Venous blood - Left Arm Blood Culture - Preliminary Klebsiella pneumoniae Laboratory Tests 12/22/19 12/22/19 12/22/19 18:01 18:01 18:01 WBC 13.1 H Hgb 8.4 L Plt Count 110 L Neutrophils % (Manual) Band Neuts % (Manual) 37 H Sodium Potassium 5.2 H Carbon Dioxide 13 L BUN 83 H Creatinine 5.72 H Lactic Acid Total Bilirubin AST ALT Alkaline Phosphatase Troponin I 0.663 H* Random Vancomycin COVID-19 PCR 12/22/19 12/22/19 12/22/19 19:53 21:30 23:33 WBC Hgb Plt Count Neutrophils % (Manual) Band Neuts % (Manual) Sodium Potassium Carbon Dioxide BUN Creatinine Lactic Acid 1.6 Total Bilirubin AST ALT Alkaline Phosphatase Troponin I 0.727 H* Random Vancomycin COVID-19 PCR Not Detected 12/23/19 12/23/19 12/23/19 05:02 05:02 23:06 WBC Hgb Plt Count Neutrophils % (Manual) 64 Band Neuts % (Manual) 28 H Sodium Potassium Carbon Dioxide BUN Creatinine Lactic Acid Total Bilirubin AST ALT Alkaline Phosphatase Troponin I 0.636 H* Random Vancomycin 18.9 COVID-19 PCR 12/24/19 12/25/19 12/26/19 05:19 05:08 05:52 WBC 7.6 Hgb 8.1 L 7.7 L Plt Count 83 L 93 L Neutrophils % (Manual) 74 Band Neuts % (Manual) 19 H Sodium Potassium Carbon Dioxide BUN Creatinine 6.60 H Lactic Acid Total Bilirubin AST ALT Alkaline Phosphatase Troponin I Random Vancomycin COVID-19 PCR 12/26/19 12/27/19 12/27/19 05:52 03:00 03:00 WBC 19.1 H Hgb 7.5 L 8.9 L Plt Count 78 L 102 L Neutrophils % (Manual) Band Neuts % (Manual) Sodium Potassium Carbon Dioxide BUN 111 H Creatinine 6.51 H Lactic Acid Total Bilirubin 2.5 H AST 1598 H ALT 712 H Alkaline Phosphatase Troponin I Random Vancomycin COVID-19 PCR 12/28/19 12/29/19 12/30/19 08:01 03:30 04:00 WBC Hgb Plt Count Neutrophils % (Manual) Band Neuts % (Manual) Sodium 129 L 127 L 128 L Potassium Carbon Dioxide 15 L BUN 103 H 108 H 112 H Creatinine 6.61 H 6.69 H 7.34 H Lactic Acid Total Bilirubin 3.8 H 4.9 H 5.9 H AST 2056 H 2673 H 2910 H ALT 743 H 863 H 933 H Alkaline Phosphatase Troponin I Random Vancomycin COVID-19 PCR 12/31/19 01/01/20 04:10 03:30 WBC Hgb Plt Count Neutrophils % (Manual) Band Neuts % (Manual) Sodium Potassium 5.2 H 5.6 H Carbon Dioxide 14 L 10 L BUN Creatinine Lactic Acid Total Bilirubin 3.8 H AST 828 H ALT 537 H Alkaline Phosphatase 652 H Troponin I Random Vancomycin COVID- PCR EKG Reviewed by me: Yes (Tele - Sinus diony) Hospitalist ROS - Medication Medications: Active Medications Generic Name Dose Route Start Last Admin Trade Name Freq PRN Reason Stop Dose Admin Aspirin 325 mg 12/25/19 09:00 01/03/20 08:45 Aspirin PO 325 mg DAILY JUAN ANTONIO Administration Dextrose/Water 25 gm 12/23/19 00:11 12/26/19 05:54 Dextrose 50% SLOW IVP 25 gm PRN PRN Administration Hypoglycemia Famotidine 20 mg 12/23/19 09:00 01/03/20 08:45 Pepcid PO 20 mg DAILY JUAN ANTONIO Administration Hydrocortisone Sodium Succinate 50 mg 12/26/19 12:00 01/03/20 12:34 Solu-Cortef IVP 50 mg Q6HR JUAN ANTONIO Administration Cefepime HCl 0.5 gm/ Sodium 100 mls @ 200 mls/hr 12/26/19 12:00 01/03/20 12: 35 Chloride IVPB 100 mls Q24HR JUAN ANTONIO Administration Vancomycin HCl 500 mg/ Sodium 100 mls @ 100 mls/hr 12/26/19 11:15 12/27/19 01 :32 Chloride IVPB 100 mls WILLCALL JUAN ANTONIO Administration Sodium Bicarbonate 150 meq/ 1,150 mls @ 100 mls/hr 12/26/19 12:45 12/27/19 23 :12 Dextrose/Water IV 1,150 mls INF JUAN ANTONIO Administration Vasopressin 40 unit/ 102 mls @ 0 mls/hr 12/26/19 20:15 12/29/19 19:32 Miscellaneous Medication 1 IV 102 mls each/ Sodium Chloride INF JUAN ANTONIO Administration Protocol As Directed Norepinephrine Bitartrate 8 mg 250 mls @ 0 mls/hr 01/02/20 14:42 01/02/20 11: 29 / Dextrose/Water IVPB 250 mls INF PRN Administration TO MAINTAIN MAP > 65 Protocol As Directed Insulin Human Lispro 0 units 12/23/19 00:11 12/28/19 09:37 Humalog SC 3 unit .BEDTIME SLIDING SC PRN Administration Bedtime Correctional Scale Insulin Human Lispro 0 units 12/27/19 17:30 01/03/20 12:35 Humalog SC 4 unit .MODERATE SLIDING SC PRN Administration MODERATE SLIDING SCALE Protocol Lorazepam 2 mg 12/26/19 13:22 12/29/19 09:19 Ativan SLOW IVP 01/25/20 13:22 2 mg Q1H PRN Administration Breakthrough agitation Morphine Sulfate 2 mg 12/26/19 13:22 12/30/19 19:58 Morphine SLOW IVP 01/25/20 13:22 2 mg Q1H PRN Administration BREAKTHROUGH PAIN/Agitation Sodium Chloride 10 ml 12/23/19 00:11 12/25/19 22:18 Flush - Normal Saline IVF 10 ml PRN PRN Administration Saline Flush - Exam General - other findings: sedate, unresponsive, eyes open but no tracking ENT - other findings: ETT in place, dried blood in mouth/lips Heart: RRR, no gallops, no rubs, normal peripheral pulses Heart - other findings: S1, S2 Respiratory: no ronchi, tachypneic Respiratory - other findings: diminished in bases bilat Gastrointestinal: soft, non-distended, normal bowel sounds Gastrointestinal - other findings: obese Extremities: no cyanosis, 2+ LE edema Skin: normal turgor Neurological - other findings: Unresponsive Musculoskeletal: generalized weakness Psychiatric: somnolent, lethargic Hosp A/P (1) Sepsis due to urinary tract infection Code(s): A41.9 - SEPSIS, UNSPECIFIED ORGANISM; N39.0 - URINARY TRACT INFECTION, SITE NOT SPECIFIED Status: Acute Plan: Klebsiella spp on Ucx, continue Cefepime/Vancomycin (2) Bacteremia Code(s): R78.81 - BACTEREMIA Status: Acute (3) Acute kidney injury superimposed on CKD Code(s): N17.9 - ACUTE KIDNEY FAILURE, UNSPECIFIED; N18.9 - CHRONIC KIDNEY DISEASE, UNSPECIFIED Status: Acute Plan: Worsening and end-stage (4) Hyperkalemia Code(s): E87.5 - HYPERKALEMIA Status: Acute Plan: Persistent, incompatible with life and renal failure that is progressive (5) NSTEMI (non-ST elevated myocardial infarction) Code(s): I21.4 - NON-ST ELEVATION (NSTEMI) MYOCARDIAL INFARCTION Status: Acute (6) Anemia in CKD (chronic kidney disease) Code(s): N18.9 - CHRONIC KIDNEY DISEASE, UNSPECIFIED; D63.1 - ANEMIA IN CHRONIC KIDNEY DISEASE Status: Chronic (7) DM type 2 (diabetes mellitus, type 2) Status: Chronic Qualifiers: Diabetes mellitus campus director insulin use: without campus director use Diabetes mellitus complication status: with kidney complications Diabetes mellitus complication detail: with chronic kidney disease Chronic kidney disease stage : stage 2 (mild) Qualified Code(s): E11.22 - Type 2 diabetes mellitus with diabetic chronic kidney disease; N18.2 - Chronic kidney disease, stage 2 (mild) (8) HTN (hypertension) Code(s): I10 - ESSENTIAL (PRIMARY) HYPERTENSION Status: Chronic Qualifiers: Hypertension type: essential hypertension Qualified Code(s): I10 - Essential (primary) hypertension - Plan continue antibiotics, foster care social worker, respiratory therapy Consults: Palliative Care Stable currently Continue supportive mgmt Continue Cefepime/Vancomycin Levophed for pressor support COVID-19 ruled out Palliative care consult/?hospice Awaiting family meeting to discuss goals of care AM lab: CMP Poor prognosis Code Status: Chem code only
[2020-01-04] MEDS: Hydrocortisone Sod Succ/PF 100 mg/2 ml Vial IVP SCH ×4 (00:11→18:41)
[2020-01-04] MEDS: HumaLOG 300 UNITS/3 ML VIAL SC PRN ×5 (00:11→20:08)
[2020-01-04] MEDS ORDERED: Norepinephrine 8 MG/0.9% NS 250 ML IVPB SCH (01:45)
[2020-01-04 07:08] LABS: ALT (SGPT) 229 U/L (8-55); AST (SGOT) 191 U/L (5-34); Albumin 1.8 g/dL (3.4-4.8); Alkaline Phosphatase 325 U/L (40-110); Anion Gap 26 mmol/L (10-20); Bilirubin, Total 1.9 mg/dL (0.2-1.2); Calc. Creatinine Clearance 8 mL/min (70-130); Calcium 4.8 mg/dL (7.8-10.44); Carbon Dioxide 10 mmol/L (23-31); Chloride 98 mmol/L (98-107); Estimated GFR-MDRD 4; Globulin 2.4 g/dL (2.4-3.5); Glucose 177 mg/dL (83-110); Potassium 6.9 mmol/L (3.5-5.1); Protein, Total 4.2 g/dL (6.0-8.3); Sodium 127 mmol/L (136-145)
[2020-01-04 07:16] LABS: BUN (Urea Nitrogen) 160 mg/dL (9.8-20.1)
--- NOTE | 2020-01-04 08:11 | PRG ---
DATE OF SERVICE: 01/04/2020 TIME SPENT: 35 minutes critical care time. SUBJECTIVE: The patient remains intubated on mechanical ventilation. I am not sure what the status is with the family at this time, but the patient has made absolutely no improvement. OBJECTIVE: VITAL SIGNS: Temperature 96.7, pulse 45, blood pressure 108/44, O2 saturation 99%. She is still on Levophed at 5 mcg/minute. Intake 435, output 10. Weight 254 pounds. Admission weight 212, so she is now over 40 pounds fluid overloaded. GENERAL: She has edema throughout. She tries to open her eyes to stimulation, but she has such a poor periorbital edema and she cannot. Oropharynx is edematous. NECK: No JVD. LUNGS: Coarse breath sounds. CARDIAC: S1 and S2. Bradycardic. ABDOMEN: Distended. EXTREMITIES: 4+ edema in arms and legs. LABORATORY DATA: Sodium 127, potassium 6.9, chloride 98, CO2 of 10, BUN 160, creatinine 9.9, glucose 177. ASSESSMENT: Multiple organ failure without any discernible improvement. RECOMMENDATIONS: I would recommend that we sit down with the family and just tell them it is time to stop. What we are doing now borders on cruel as this patient has no hope of surviving this illness. Job ID: [id number]
[2020-01-04] MEDS: Famotidine 20 MG TAB PO SCH ×2 (09:00→11:45)
[2020-01-04] MEDS: Aspirin 325 MG TAB PO SCH ×3 (09:00→11:50)
[2020-01-04] MEDS: Cefepime 0.5 GM in Sodium Chloride 0.9% 100 ML IVPB SCH (12:03)
--- NOTE | 2020-01-04 12:42 | PDOC.HOSPP ---
- Subjective Encounter Date: 01/04/20 Encounter Time: 12:40 Subjective: f/u for resp failure, worsening PARESH, sepsis with shock on Levophed/Cefepime/Vanc /Hydrocortisone. No decision from family on course as family has not been available or responding to calls. - Objective Vital Signs & Weight: Vital Signs (12 hours) Temp Pulse Resp BP 01/04/20 10:20 43 L 01/04/20 08:42 45 L 01/04/20 06:00 24 H 01/04/20 04:39 44 L 120/55 L 01/04/20 04:00 96.7 F L 24 H 01/04/20 02:00 24 H Weight Admit Weight 212 lb Weight 254 lb 13.67 oz Most Recent Monitor Data Heart Rate from ECG 44 NIBP 119/74 NIBP BP-Mean 89 Respiration from ECG 13 SpO2 99 I&O: 01/03/20 01/04/20 01/05/20 06:59 06:59 06:59 Intake Total 1611 435 Output Total 10 10 Balance 1601 425 Result Diagrams: 12/31/19 04:10 01/04/20 06:30 Additional Labs: Accuchecks 01/04/20 01/04/20 01/03/20 12:09 05:10 20:38 POC Glucose 168 H 207 H 214 H 01/03/20 01/03/20 16:11 12:38 POC Glucose 216 H 233 H Microbiology 12/22/19 19:54 Venous blood - Right Arm Blood Culture - Final Klebsiella pneumoniae ssp pneu 12/22/19 19:53 Venous blood - Left Arm Blood Culture - Final Klebsiella pneumoniae ssp pneu 12/22/19 19:54 Venous blood - Right Arm Blood Culture - Preliminary Specimen has been received and culture in progress. No Growth to date. 12/22/19 19:54 Venous blood - Right Arm Blood Culture - Preliminary Presumptive Kleb/Enterobacter 12/22/19 19:53 Venous blood - Left Arm Blood Culture - Preliminary Specimen has been received and culture in progress. No Growth to date. 12/22/19 19:53 Venous blood - Left Arm Blood Culture - Preliminary Klebsiella pneumoniae Laboratory Tests 12/22/19 12/22/19 12/22/19 18:01 18:01 18:01 WBC 13.1 H Hgb 8.4 L Plt Count 110 L Neutrophils % (Manual) Band Neuts % (Manual) 37 H Sodium Potassium 5.2 H Carbon Dioxide 13 L BUN 83 H Creatinine 5.72 H Lactic Acid Total Bilirubin AST ALT Alkaline Phosphatase Troponin I 0.663 H* Random Vancomycin COVID-19 PCR 12/22/19 12/22/19 12/22/19 19:53 21:30 23:33 WBC Hgb Plt Count Neutrophils % (Manual) Band Neuts % (Manual) Sodium Potassium Carbon Dioxide BUN Creatinine Lactic Acid 1.6 Total Bilirubin AST ALT Alkaline Phosphatase Troponin I 0.727 H* Random Vancomycin COVID-19 PCR Not Detected 12/23/19 12/23/19 12/23/19 05:02 05:02 23:06 WBC Hgb Plt Count Neutrophils % (Manual) 64 Band Neuts % (Manual) 28 H Sodium Potassium Carbon Dioxide BUN Creatinine Lactic Acid Total Bilirubin AST ALT Alkaline Phosphatase Troponin I 0.636 H* Random Vancomycin 18.9 COVID-19 PCR 12/24/19 12/25/19 12/26/19 05:19 05:08 05:52 WBC 7.6 Hgb 8.1 L 7.7 L Plt Count 83 L 93 L Neutrophils % (Manual) 74 Band Neuts % (Manual) 19 H Sodium Potassium Carbon Dioxide BUN Creatinine 6.60 H Lactic Acid Total Bilirubin AST ALT Alkaline Phosphatase Troponin I Random Vancomycin COVID-19 PCR 12/26/19 12/27/19 12/27/19 05:52 03:00 03:00 WBC 19.1 H Hgb 7.5 L 8.9 L Plt Count 78 L 102 L Neutrophils % (Manual) Band Neuts % (Manual) Sodium Potassium Carbon Dioxide BUN 111 H Creatinine 6.51 H Lactic Acid Total Bilirubin 2.5 H AST 1598 H ALT 712 H Alkaline Phosphatase Troponin I Random Vancomycin COVID-19 PCR 12/28/19 12/29/19 12/30/19 08:01 03:30 04:00 WBC Hgb Plt Count Neutrophils % (Manual) Band Neuts % (Manual) Sodium 129 L 127 L 128 L Potassium Carbon Dioxide 15 L BUN 103 H 108 H 112 H Creatinine 6.61 H 6.69 H 7.34 H Lactic Acid Total Bilirubin 3.8 H 4.9 H 5.9 H AST 2056 H 2673 H 2910 H ALT 743 H 863 H 933 H Alkaline Phosphatase Troponin I Random Vancomycin COVID-19 PCR 12/31/19 01/01/20 04:10 03:30 WBC Hgb Plt Count Neutrophils % (Manual) Band Neuts % (Manual) Sodium Potassium 5.2 H 5.6 H Carbon Dioxide 14 L 10 L BUN Creatinine Lactic Acid Total Bilirubin 3.8 H AST 828 H ALT 537 H Alkaline Phosphatase 652 H Troponin I Random Vancomycin COVID-19 PCR EKG Reviewed by me: Yes (Tele - sinus diony in 40's) Hospitalist ROS - Medication Medications: Active Medications Generic Name Dose Route Start Last Admin Trade Name Freq PRN Reason Stop Dose Admin Aspirin 325 mg 12/25/19 09:00 01/04/20 11:50 Aspirin PO 325 mg DAILY JUAN ANTONIO Administration Dextrose/Water 25 gm 12/23/19 00:11 12/26/19 05:54 Dextrose 50% SLOW IVP 25 gm PRN PRN Administration Hypoglycemia Famotidine 20 mg 12/23/19 09:00 01/04/20 11:45 Pepcid PO 20 mg DAILY JUAN ANTONIO Administration Hydrocortisone Sodium Succinate 50 mg 12/26/19 12:00 01/04/20 11:51 Solu-Cortef IVP 50 mg Q6HR JUAN ANTONIO Administration Cefepime HCl 0.5 gm/ Sodium 100 mls @ 200 mls/hr 12/26/19 12:00 01/04/20 12: 03 Chloride IVPB 100 mls Q24HR JUAN ANTONIO Administration Vancomycin HCl 500 mg/ Sodium 100 mls @ 100 mls/hr 12/26/19 11:15 12/27/19 01 :32 Chloride IVPB 100 mls WILLCALL JUAN ANTONIO Administration Sodium Bicarbonate 150 meq/ 1,150 mls @ 100 mls/hr 12/26/19 12:45 12/27/19 23 :12 Dextrose/Water IV 1,150 mls INF JUAN ANTONIO Administration Vasopressin 40 unit/ 102 mls @ 0 mls/hr 12/26/19 20:15 12/29/19 19:32 Miscellaneous Medication 1 IV 102 mls each/ Sodium Chloride INF JUAN ANTONIO Administration Protocol As Directed Insulin Human Lispro 0 units 12/23/19 00:11 12/28/19 09:37 Humalog SC 3 unit .BEDTIME SLIDING SC PRN Administration Bedtime Correctional Scale Insulin Human Lispro 0 units 12/27/19 17:30 01/04/20 12:06 Humalog SC 2 unit .MODERATE SLIDING SC PRN Administration MODERATE SLIDING SCALE Protocol Lorazepam 2 mg 12/26/19 13:22 12/29/19 09:19 Ativan SLOW IVP 01/25/20 13:22 2 mg Q1H PRN Administration Breakthrough agitation Morphine Sulfate 2 mg 12/26/19 13:22 12/30/19 19:58 Morphine SLOW IVP 01/25/20 13:22 2 mg Q1H PRN Administration BREAKTHROUGH PAIN/Agitation Sodium Chloride 10 ml 12/23/19 00:11 12/25/19 22:18 Flush - Normal Saline IVF 10 ml PRN PRN Administration Saline Flush - Exam General Appearance: ill appearing General - other findings: eyes open, does not track ENT: normocephalic atraumatic ENT - other findings: dried blood on lips, periorbital/oral edema Neck: supple, symmetric, no JVD, no thyromegaly Heart: RRR, no gallops, no rubs, normal peripheral pulses Heart - other findings: S1, S2 Respiratory - other findings: diminished bilat, few scattered rhonchi Gastrointestinal: soft, non-tender, non-distended, normal bowel sounds, no guarding Extremities - other findings: anasarca Skin: normal turgor Neurological - other findings: minimal response to tactile Psychiatric: somnolent, lethargic Hosp A/P (1) Sepsis due to urinary tract infection Code(s): A41.9 - SEPSIS, UNSPECIFIED ORGANISM; N39.0 - URINARY TRACT INFECTION, SITE NOT SPECIFIED Status: Acute Plan: Continues clinically declining (2) Bacteremia Code(s): R78.81 - BACTEREMIA Status: Acute (3) Acute kidney injury superimposed on CKD Code(s): N17.9 - ACUTE KIDNEY FAILURE, UNSPECIFIED; N18.9 - CHRONIC KIDNEY DISEASE, UNSPECIFIED Status: Acute Plan: Worsening, end-stage process (4) Hyperkalemia Code(s): E87.5 - HYPERKALEMIA Status: Acute Plan: Life-threatening levels, Sodium bicarbonate gtt (5) NSTEMI (non-ST elevated myocardial infarction) Code(s): I21.4 - NON-ST ELEVATION (NSTEMI) MYOCARDIAL INFARCTION Status: Acute (6) Anemia in CKD (chronic kidney disease) Code(s): N18.9 - CHRONIC KIDNEY DISEASE, UNSPECIFIED; D63.1 - ANEMIA IN CHRONIC KIDNEY DISEASE Status: Chronic (7) DM type 2 (diabetes mellitus, type 2) Status: Chronic Qualifiers: Diabetes mellitus poultry pinner insulin use: without alf use Diabetes mellitus complication status: with kidney complications Diabetes mellitus complication detail: with chronic kidney disease Chronic kidney disease stage : stage 2 (mild) Qualified Code(s): E11.22 - Type 2 diabetes mellitus with diabetic chronic kidney disease; N18.2 - Chronic kidney disease, stage 2 (mild) (8) HTN (hypertension) Code(s): I10 - ESSENTIAL (PRIMARY) HYPERTENSION Status: Chronic Qualifiers: Hypertension type: essential hypertension Qualified Code(s): I10 - Essential (primary) hypertension - Plan continue antibiotics, group social worker, respiratory therapy Consults: Palliative Care Continues clinically declining despite medical therapy Continue Cefepime/Vancomycin/Hydrocortisone Levophed for pressor support COVID-19 ruled out Palliative care consult/?hospice Awaiting family meeting to discuss goals of care AM lab: CMP Poor prognosis Code Status: Chem code only
[2020-01-04 12:43] VITALS: BMI 42.4
--- NOTE | 2020-01-04 13:07 | PDOC.PALPN ---
Palliative Progress Note - Subjective Mechanical ventilation, opens eyes. - Objective Vital Signs: Vital Signs - Most Recent Temp Pulse Resp BP Pulse Ox 96.7 F L 43 L 24 H 120/55 L 99 01/04/20 04:00 01/04/20 10:20 01/04/20 06:00 01/04/20 04:39 01/03/20 20:00 - Physical Exam Constitutional: encephalitic, ill appearing HEENT: EOMI, moist MMs, sclera anicteric Deviation from normal: mechanical ventilation Cardiovascular: RRR Gastrointestinal: incontinent Genitourinary: woodruff catheter Musculoskeletal: no cyanosis, no clubbing, diffuse muscle atrophy Neurology: moves all 4 limbs Skin: cap refill <2 seconds, fragile Deviation from normal: encehpalopathic - Assessment (1) Palliative care encounter Code(s): Z51.5 - ENCOUNTER FOR PALLIATIVE CARE Current Visit: Yes Status: Acute (2) Physical deconditioning Code(s): R53.81 - OTHER MALAISE Current Visit: Yes Status: Acute (3) Acute renal failure superimposed on stage 5 chronic kidney disease, not on chronic dialysis Code(s): N17.9 - ACUTE KIDNEY FAILURE, UNSPECIFIED; N18.5 - CHRONIC KIDNEY DISEASE, STAGE 5 Current Visit: Yes Status: Acute (4) Sepsis due to urinary tract infection Code(s): A41.9 - SEPSIS, UNSPECIFIED ORGANISM; N39.0 - URINARY TRACT INFECTION, SITE NOT SPECIFIED Current Visit: Yes Status: Acute (5) Diastolic congestive heart failure Code(s): I50.30 - UNSPECIFIED DIASTOLIC (CONGESTIVE) HEART FAILURE Current Visit: Yes Status: Chronic Qualifiers: Heart failure chronicity: chronic Qualified Code(s): I50.32 - Chronic diastolic (congestive) heart failure (6) Chronic anemia Code(s): D64.9 - ANEMIA, UNSPECIFIED Current Visit: No Status: Chronic (7) Obesity Code(s): E66.9 - OBESITY, UNSPECIFIED Current Visit: No Status: Chronic Qualifiers: Obesity classification: adult class 3 (BMI >= 40) Body mass index: BMI 40.0 -44.9 - Plan Plan: Called Pooja at all numbers listed as well as sent a text message. Requesting a family meeting for today 01/03. Hope to discuss Goal of Care related to patient prognosis and poor meaningful recovery. Discussed with both sons last week, they both related patients recent decline over the past 6 months , as she was previously private home setting living with one of the sons and then transitioned to Prison secondary to decline. Communicated with Dr De Leon. Please also refer to Natasha Joiner chronic manager RN notes in note section. Notified Spiritual Care [30] minutes spent on this encounter with >50% of the time in counseling and coordination of care. - ROS Non Response: due to endotracheal tube, due to mental status
--- NOTE | 2020-01-04 17:26 | PDOC.PALFU ---
Palliative Care Follow-up Note No response again today from patient Son's Mehdi or Noah, voice mail left as well as text messages on phones. Consideration may be given to Ethics consult as multiple attempts have been made to coordinate family meeting for Goal of Care related to Mrs Carr and multiple morbidities.
[2020-01-05] MEDS: Hydrocortisone Sod Succ/PF 100 mg/2 ml Vial IVP SCH ×4 (01:26→18:39)
[2020-01-05] MEDS: HumaLOG 300 UNITS/3 ML VIAL SC PRN ×2 (05:48→18:37)
[2020-01-05 07:13] LABS: Anion Gap 25 mmol/L (10-20); Calc. Creatinine Clearance 8 mL/min (70-130); Calcium 4.7 mg/dL (7.8-10.44); Carbon Dioxide 10 mmol/L (23-31); Chloride 99 mmol/L (98-107); Estimated GFR-MDRD 4; Glucose 149 mg/dL (83-110); Potassium 7.6 mmol/L (3.5-5.1); Sodium 126 mmol/L (136-145)
[2020-01-05 07:21] LABS: BUN (Urea Nitrogen) 161 mg/dL (9.8-20.1)
--- NOTE | 2020-01-05 07:35 | PRG ---
DATE OF SERVICE: 01/05/2020 This is 35 minute of critical care time. SUBJECTIVE: The patient remains intubated on mechanical ventilation. There has been no improvement in her situation. OBJECTIVE: VITAL SIGNS: Temperature is 96.8, pulse is 42, blood pressure is 96/56, O2 saturation is 100%. She is off the Levophed drip. 24-hour intake 516, output 208, almost no urine output. HEENT: Eyes open. Oropharynx, perioral swelling. NECK: No adenopathy or JVD. LUNGS: Coarse breath sounds. CARDIAC: S1 and S2. Bradycardic. ABDOMEN: Soft. EXTREMITIES: 4+ edema. LABORATORY DATA: Sodium 126, potassium 7.6, chloride 99, CO2 of 10, BUN not resulted. Creatinine 10.2, glucose 149, calcium 4.7. ASSESSMENT: Multiple organ failure, which is unchanged. RECOMMENDATION: At this point, I think it would be a mistake to restart vasopressors now that she has weaned. I will stop all the antibiotics that were due for renewal today. I personally would be supportive of an ethics consult. The family is clearly dodging their fiduciary responsibility to the patient. Job ID: [id number]
[2020-01-05 07:56] LABS: Vancomycin, Trough 15.4 ug/mL
[2020-01-05] MEDS: Famotidine 20 MG TAB PO SCH (09:07)
[2020-01-05] MEDS: Aspirin 325 MG TAB PO SCH (09:07)
[2020-01-05] MEDS ORDERED: Atropine Sulfate 1 mg/10 ml Syringe ONE (09:20)
[2020-01-05] MEDS ORDERED: EPINEPHrine 1 MG/10 ML Abboject SYRINGE ONE (09:20)
--- NOTE | 2020-01-05 12:46 | PDOC.PALPN ---
Palliative Progress Note - Subjective Mechanical ventilation, encephalopathic - Objective Vital Signs: Vital Signs - Most Recent Temp Pulse Resp BP Pulse Ox 97.2 F L 42 L 24 H 113/44 L 99 01/05/20 12:00 01/05/20 10:23 01/05/20 12:00 01/05/20 10:23 01/05/20 08:00 - Physical Exam Constitutional: encephalitic, ill appearing HEENT: moist MMs, sclera anicteric Respiratory: diminished lung sound Deviation from normal: Mechanical ventilation Deviation from normal: Bradycardia Gastrointestinal: incontinent Genitourinary: woodruff catheter Musculoskeletal: edema present, diffuse muscle atrophy Skin: cap refill <2 seconds, fragile Deviation from normal: encephalopathic - Assessment (1) Palliative care encounter Code(s): Z51.5 - ENCOUNTER FOR PALLIATIVE CARE Current Visit: Yes Status: Acute (2) Physical deconditioning Code(s): R53.81 - OTHER MALAISE Current Visit: Yes Status: Acute (3) Acute renal failure superimposed on stage 5 chronic kidney disease, not on chronic dialysis Code(s): N17.9 - ACUTE KIDNEY FAILURE, UNSPECIFIED; N18.5 - CHRONIC KIDNEY DISEASE, STAGE 5 Current Visit: Yes Status: Acute (4) Sepsis due to urinary tract infection Code(s): A41.9 - SEPSIS, UNSPECIFIED ORGANISM; N39.0 - URINARY TRACT INFECTION, SITE NOT SPECIFIED Current Visit: Yes Status: Acute (5) Diastolic congestive heart failure Code(s): I50.30 - UNSPECIFIED DIASTOLIC (CONGESTIVE) HEART FAILURE Current Visit: Yes Status: Chronic Qualifiers: Heart failure chronicity: chronic Qualified Code(s): I50.32 - Chronic diastolic (congestive) heart failure (6) Chronic anemia Code(s): D64.9 - ANEMIA, UNSPECIFIED Current Visit: No Status: Chronic (7) Obesity Code(s): E66.9 - OBESITY, UNSPECIFIED Current Visit: No Status: Chronic Qualifiers: Obesity classification: adult class 3 (BMI >= 40) Body mass index: BMI 40.0 -44.9 - Plan Plan: Extensive phone call with patient Roseline george. Her father is Noah. Discussed imperative need for family meeting in regards to her grandmother and poor meaningful recovery. Education in relation to multiple morbidities and impact on sustaining life. She states that her uncle Mehdi is not answering any family phone calls. She is going to communicate with her father and hopefully uncle. Requested a family meeting 9am 01/05. Roseline communicated that her father and uncle are having "a hard time', it was suggested that they could each give verbal consent to have her made surrogate decision maker for her grandmother. Noah did return the call to Palliative Care, please refer to Natasha Joiner RNacute care nursing assistant notes in note section. Emotional support and therapeutic listening offered. Communicated with Dr De Leon and Dr Castillo. [45] minutes spent on this encounter with >50% of the time in counseling and coordination of care. - ROS Non Response: due to endotracheal tube, due to mental status
[2020-01-05] MEDS ORDERED: Morphine 2 MG/ML SYRINGE SLOW IVP PRN (13:41)
[2020-01-05] MEDS ORDERED: Lorazepam 2 MG/ML VIAL SLOW IVP PRN (13:41)
[2020-01-05] MEDS ORDERED: Fentanyl BOLUS 250 ML IVPB PRN (13:42)
[2020-01-05] MEDS ORDERED: fentaNYL Citrate/PF 2,000 MCG in Sodium Chloride 0.9% 60 ML IV SCH (13:45)
--- NOTE | 2020-01-05 13:49 | PDOC.HOSPP ---
- Subjective Encounter Date: 01/05/20 Encounter Time: 13:00 Subjective: f/u for resp failure, PARESH, severe acidosis with continuing clinical decline. Palliative care attempting have family meeting to discuss goals of care likely in am 01/06/20. - Objective Vital Signs & Weight: Vital Signs (12 hours) Temp Pulse Resp BP Pulse Ox 01/05/20 12:00 97.2 F L 24 H 01/05/20 10:23 42 L 113/44 L 01/05/20 10:00 24 H 01/05/20 09:00 97.4 F L 01/05/20 08:00 96.5 F L 24 H 99 01/05/20 07:34 44 L 113/34 L 01/05/20 07:00 95.9 F L 01/05/20 06:00 24 H 01/05/20 04:00 96.8 F L 24 H 01/05/20 02:00 24 H Weight Admit Weight 212 lb Weight 254 lb 13.67 oz Most Recent Monitor Data Heart Rate from ECG 37 NIBP 85/30 NIBP BP-Mean 48 Respiration from ECG 24 SpO2 99 I&O: 01/04/20 01/05/20 01/06/20 06:59 06:59 06:59 Intake Total 435 516.6 Output Total 10 208 10 Balance 425 308.6 -10 Result Diagrams: 12/31/19 04:10 01/05/20 06:50 Additional Labs: Accuchecks 01/05/20 01/05/20 01/05/20 12:28 08:55 05:52 POC Glucose 178 H 177 H 174 H 01/05/20 01/04/20 01/04/20 01:37 20:05 19:17 POC Glucose 162 H 179 H 168 H 01/04/20 00:14 POC Glucose 217 H Microbiology 12/22/19 19:54 Venous blood - Right Arm Blood Culture - Final Klebsiella pneumoniae ssp pneu 12/22/19 19:53 Venous blood - Left Arm Blood Culture - Final Klebsiella pneumoniae ssp pneu 12/22/19 19:54 Venous blood - Right Arm Blood Culture - Preliminary Specimen has been received and culture in progress. No Growth to date. 12/22/19 19:54 Venous blood - Right Arm Blood Culture - Preliminary Presumptive Kleb/Enterobacter 12/22/19 19:53 Venous blood - Left Arm Blood Culture - Preliminary Specimen has been received and culture in progress. No Growth to date. 12/22/19 19:53 Venous blood - Left Arm Blood Culture - Preliminary Klebsiella pneumoniae Laboratory Tests 12/22/19 12/22/19 12/22/19 18:01 18:01 18:01 WBC 13.1 H Hgb 8.4 L Plt Count 110 L Neutrophils % (Manual) Band Neuts % (Manual) 37 H Sodium Potassium 5.2 H Carbon Dioxide 13 L BUN 83 H Creatinine 5.72 H Lactic Acid Total Bilirubin AST ALT Alkaline Phosphatase Troponin I 0.663 H* Random Vancomycin COVID-19 PCR 12/22/19 12/22/19 12/22/19 19:53 21:30 23:33 WBC Hgb Plt Count Neutrophils % (Manual) Band Neuts % (Manual) Sodium Potassium Carbon Dioxide BUN Creatinine Lactic Acid 1.6 Total Bilirubin AST ALT Alkaline Phosphatase Troponin I 0.727 H* Random Vancomycin COVID-19 PCR Not Detected 12/23/19 12/23/19 12/23/19 05:02 05:02 23:06 WBC Hgb Plt Count Neutrophils % (Manual) 64 Band Neuts % (Manual) 28 H Sodium Potassium Carbon Dioxide BUN Creatinine Lactic Acid Total Bilirubin AST ALT Alkaline Phosphatase Troponin I 0.636 H* Random Vancomycin 18.9 COVID-19 PCR 12/24/19 12/25/19 12/26/19 05:19 05:08 05:52 WBC 7.6 Hgb 8.1 L 7.7 L Plt Count 83 L 93 L Neutrophils % (Manual) 74 Band Neuts % (Manual) 19 H Sodium Potassium Carbon Dioxide BUN Creatinine 6.60 H Lactic Acid Total Bilirubin AST ALT Alkaline Phosphatase Troponin I Random Vancomycin COVID-19 PCR 12/26/19 12/27/19 12/27/19 05:52 03:00 03:00 WBC 19.1 H Hgb 7.5 L 8.9 L Plt Count 78 L 102 L Neutrophils % (Manual) Band Neuts % (Manual) Sodium Potassium Carbon Dioxide BUN 111 H Creatinine 6.51 H Lactic Acid Total Bilirubin 2.5 H AST 1598 H ALT 712 H Alkaline Phosphatase Troponin I Random Vancomycin COVID-19 PCR 12/28/19 12/29/19 12/30/19 08:01 03:30 04:00 WBC Hgb Plt Count Neutrophils % (Manual) Band Neuts % (Manual) Sodium 129 L 127 L 128 L Potassium Carbon Dioxide 15 L BUN 103 H 108 H 112 H Creatinine 6.61 H 6.69 H 7.34 H Lactic Acid Total Bilirubin 3.8 H 4.9 H 5.9 H AST 2056 H 2673 H 2910 H ALT 743 H 863 H 933 H Alkaline Phosphatase Troponin I Random Vancomycin COVID-19 PCR 12/31/19 01/01/20 04:10 03:30 WBC Hgb Plt Count Neutrophils % (Manual) Band Neuts % (Manual) Sodium Potassium 5.2 H 5.6 H Carbon Dioxide 14 L 10 L BUN Creatinine Lactic Acid Total Bilirubin 3.8 H AST 828 H ALT 537 H Alkaline Phosphatase 652 H Troponin I Random Vancomycin COVID- PCR EKG Reviewed by me: Yes (Tele - bradycardia in 30's) Hospitalist ROS - Medication Medications: Active Medications Generic Name Dose Route Start Last Admin Trade Name Freq PRN Reason Stop Dose Admin Aspirin 325 mg 12/25/19 09:00 01/05/20 09:07 Aspirin PO 325 mg DAILY JUAN ANTONIO Administration Dextrose/Water 25 gm 12/23/19 00:11 12/26/19 05:54 Dextrose 50% SLOW IVP 25 gm PRN PRN Administration Hypoglycemia Famotidine 20 mg 12/23/19 09:00 01/05/20 09:07 Pepcid PO 20 mg DAILY JUAN ANTONIO Administration Hydrocortisone Sodium Succinate 50 mg 12/26/19 12:00 01/05/20 12:29 Solu-Cortef IVP 50 mg Q6HR JUAN ANTONIO Administration Sodium Bicarbonate 150 meq/ 1,150 mls @ 100 mls/hr 12/26/19 12:45 12/27/19 23 :12 Dextrose/Water IV 1,150 mls INF JUAN ANTONIO Administration Vasopressin 40 unit/ 102 mls @ 0 mls/hr 12/26/19 20:15 12/29/19 19:32 Miscellaneous Medication 1 IV 102 mls each/ Sodium Chloride INF JUAN ANTONIO Administration Protocol As Directed Insulin Human Lispro 0 units 12/23/19 00:11 12/28/19 09:37 Humalog SC 3 unit .BEDTIME SLIDING SC PRN Administration Bedtime Correctional Scale Insulin Human Lispro 0 units 12/27/19 17:30 01/05/20 05:48 Humalog SC 2 unit .MODERATE SLIDING SC PRN Administration MODERATE SLIDING SCALE Protocol Sodium Chloride 10 ml 12/23/19 00:11 12/25/19 22:18 Flush - Normal Saline IVF 10 ml PRN PRN Administration Saline Flush - Exam General Appearance: ill appearing General - other findings: unresponsive, mech ventilation ENT: normocephalic atraumatic, no oropharyngeal lesions ENT - other findings: ETT in place Neck: supple, symmetric, no JVD, no thyromegaly Heart: no gallops, no rubs Heart - other findings: S1, S2 bradycardic Respiratory: tachypneic Respiratory - other findings: diminished, few scattered coarse sounds Gastrointestinal: soft, non-distended, normal bowel sounds, no palpable masses Extremities - other findings: anasarca Neurological - other findings: unresponsive Psychiatric: somnolent, lethargic Hosp A/P (1) Sepsis due to urinary tract infection Code(s): A41.9 - SEPSIS, UNSPECIFIED ORGANISM; N39.0 - URINARY TRACT INFECTION, SITE NOT SPECIFIED Status: Acute Plan: Progressive despite comprehensive therapy, end-stage process (2) Bacteremia Code(s): R78.81 - BACTEREMIA Status: Acute (3) Acute kidney injury superimposed on CKD Code(s): N17.9 - ACUTE KIDNEY FAILURE, UNSPECIFIED; N18.9 - CHRONIC KIDNEY DISEASE, UNSPECIFIED Status: Acute Plan: Progressive, end-stage process (4) Hyperkalemia Code(s): E87.5 - HYPERKALEMIA Status: Acute Plan: Life-threatening levels (5) NSTEMI (non-ST elevated myocardial infarction) Code(s): I21.4 - NON-ST ELEVATION (NSTEMI) MYOCARDIAL INFARCTION Status: Acute (6) Anemia in CKD (chronic kidney disease) Code(s): N18.9 - CHRONIC KIDNEY DISEASE, UNSPECIFIED; D63.1 - ANEMIA IN CHRONIC KIDNEY DISEASE Status: Chronic (7) DM type 2 (diabetes mellitus, type 2) Status: Chronic Qualifiers: Diabetes mellitus intermediate insulin use: without intermediate use Diabetes mellitus complication status: with kidney complications Diabetes mellitus complication detail: with chronic kidney disease Chronic kidney disease stage : stage 2 (mild) Qualified Code(s): E11.22 - Type 2 diabetes mellitus with diabetic chronic kidney disease; N18.2 - Chronic kidney disease, stage 2 (mild) (8) HTN (hypertension) Code(s): I10 - ESSENTIAL (PRIMARY) HYPERTENSION Status: Chronic Qualifiers: Hypertension type: essential hypertension Qualified Code(s): I10 - Essential (primary) hypertension - Plan continue antibiotics, bilingual social worker, respiratory therapy, DVT proph w/SCDs Consults: Palliative Care Continues clinically declining despite medical therapy Continue Cefepime/Vancomycin/Hydrocortisone Levophed d/c'd COVID-19 ruled out Palliative care consult/?hospice Awaiting family meeting to discuss goals of care, likely pt will in next 24h Poor prognosis Code Status: Chem code only
[2020-01-05 14:04] VITALS: BP 107/34
[2020-01-05 21:28] VITALS: TEMP 97.6
[2020-01-05] MEDS ORDERED: EPINEPHrine 4 MG in Dextrose 5% in Water 250 ML IV SCH (23:15)
--- NOTE | 2020-01-05 23:25 | PDOC.EVN ---
Event Note - Event Note Event Note: Called to A10 room by code blue alarm. Nursing team and RT present and attending to patient. Atropine ad epinephrine had been given for bradycardia. digital sales assistant showed bradycardia of less than 30bpm. Carotid doppler indicated a pulse. A systolic swoosh noted on cardiac exam. Pupils unresponsive to light. Occasional spontaneous jaw movement noted. Additional dose of epinephrine and atropine given for bradycardia. Epinephrine drip initiated. Discussed situation and treatment with son, Mehdi. Patient is chemical code with intubation only. I do not expect the Mrs. Carr to survive the night.
--- NOTE | 2020-01-06 11:17 | DIS ---
DATE OF ADMISSION: 12/22/2019 DATE OF DISCHARGE: 01/05/2020 DATE OF EXPIRATION: 01/05/2020. FINAL DIAGNOSES: 1. Sepsis secondarily to urinary tract infection with Klebsiella species. 2. Acute kidney injury on chronic kidney disease, stage 4. 3. Type 2 non-ST elevation myocardial infarction. 4. Acute hypoxic respiratory failure with mechanical ventilation. 5. Diabetes mellitus, type 2 with chronic kidney disease, stage 4. 6. Anemia due to chronic kidney disease. 7. Acute on chronic diastolic congestive heart failure with ejection fraction of 55% to 60%. 8. Hyperkalemia secondary to acute kidney injury. CONSULTATIONS: 1. Dr. Waters with Nephrology Service. 2. Dr. Davalos with Cardiology Service. 3. Dr. Castillo with Pulmonology/Critical Care Service. 4. Palliative Care Service. PERTINENT LABORATORY AND X-RAY FINDINGS: Sodium ranged between 125 to 141, potassium ranged between 4.5 to 7.6, creatinine ranged between 5.29 to 10.26, and estimated GFR ranged between 4 to 8. Lactic acid level 1.6. Troponin I ranged between 0.636 to 0.727. CBC showed a white blood cell count ranging between 7.6 to 21.1, hemoglobin ranged between 7.5 to 10.2, platelet count ranged between 55 to 110. COVID-19 PCR not detected on 12/22/2019. Blood cultures x2 dated 2019, positive for greater than 100,000 colonies of Klebsiella pneumoniae species. CT of the brain without contrast dated 12/22/2019, showed no acute intracranial process. Old right frontal infarct noted. Left maxillary sinusitis. Portable chest x- ray dated 12/29/2019, showed worsening of bilateral opacities. HOSPITAL COURSE: The patient was initially admitted after presenting with sepsis syndrome, suspected secondarily to urinary tract infection source. The patient with associated altered mentation and somnolence initiated on IV cefepime, vancomycin , and Levaquin. The patient received general sepsis protocol in addition to fluid resuscitation and ruled out for COVID-19 by PCR. The patient was also noted with associated acute kidney injury on chronic kidney disease, stage 4 and non-ST elevation myocardial infarction type 2 due to the sepsis. The patient was followed by the Nephrology and Cardiology Service throughout the hospital course. However, due to the patient's comorbid status, sepsis picture and overall deconditioning was not deemed an appropriate candidate for an acute intervention such as cardiac catheterization or hemodialysis. The patient was given general supportive care as well as IV antibiotic therapy throughout the hospital course. Due to the patient's overall comorbid status, the patient continued to clinically decline requiring placement on mechanical ventilation. Discussions were had with the family regarding palliative care options and confirming code status. The family did not want to extubate the patient and pursue chemical code only. Multiple attempts were made to contact family members to discuss goals of care, which were slow to recur. The patient continued clinical decompensation despite comprehensive medical therapy and mechanical ventilation. The patient was noted with worsening bradycardia in the context of hyperkalemia due to worsening renal failure. The patient subsequently had pulseless electrical activity and severe bradycardia on 01/05/2020, at which point, a Code Blue was initiated. The patient received atropine and epinephrine with minimal response. The patient was also initiated on epinephrine infusion, however, this did not improve the bradycardia. The pulse was subsequently lost and the patient on 01/05/2020 at 2358 hours. Decedent affairs and family were notified. Job ID: [id number] [facility]
--- NOTE | 2020-01-07 06:58 | PQF ---
EDIE HAWKINS CHARLES DO [id number] CLINICAL DOCUMENTATION CLARIFICATION FORM: POST DISCHARGE Addendum to original discharge summary date: ____ Late entry note date: __ DATE: 01/07/2020 ATTN: Maurice De Leon Please exercise your independent, professional judgment in responding to the clarification form. Clinical indicators are provided on the bottom of this form for your review Please check appropriate box(s): [ ] Encephalopathy: Etiology: [ ] Hypertensive [ x ] Metabolic [ ] Toxic [ ] Hypoxic [ ] Septic [ ] Drug induced: [ ] Unspecified [ ] in the setting of underlying dementia [ ] Other (please specify) [ ] Other diagnosis [ ] Unable to determine For continuity of documentation, please document condition throughout progress notes and discharge summary. Thank You. CLINICAL INDICATORS - SIGNS / SYMPTOMS / LABS ED Notes 12/21 "patient presents for evaluation of mental status changes" PN 12/25 "Low sugar and low BP" PN 12/25 "Somnolent" PN 12/25 "Altered mental status likely metabolic encephalopathy" PN 01/01 "encephalopathy" RISK FACTORS ED Notes 12/21-84 years old female ED Notes 12/21-CKD ED Notes 12/21-DM ED Notes 12/21-HTN ED Notes 12/21-Obesity HP 12/21-Dementia HP 12/21-Sepsis HP 12/21-UTI PN 12/22-PARESH PN 12/26-Acute respiratory failure TREATMENTS: Collected 12/21-CT of Brain PN 12/26-Admit to ICU PN 01/01-Ventilation NOV 10-Maxipime 2gm IV NOV 10-Vancomycin 1gm IV NOV 10-Levaquin 250mg IV NOV 10-IVF (This form is maintained as a part of the permanent medical record) 2014 [employer] All Rights Reserved [email or web address]
--- NOTE | 2020-01-07 07:02 | PQF ---
EDIE HAWKINS CHARLES DO [id number] CLINICAL DOCUMENTATION CLARIFICATION FORM: POST DISCHARGE Addendum to original discharge summary date: ____ Late entry note date: __ DATE: 01/07/2020 ATTN: Maurice De Leon Please exercise your independent, professional judgment in responding to the clarification form. Clinical indicators are provided on the bottom of this form for your review Please check appropriate box(s) to clarify if the following diagnosis has been ruled in or ruled out: Viral Pneumonia [ ] Ruled in diagnosis [ ] Continue to treat [ ] Resolved [ x ] Ruled out diagnosis [ ] Cannot rule out diagnosis [ ] Other diagnosis [ ] Unable to determine In addition, please specify: Present on Admission (POA): [ ] Yes [ x ] No [ ] Unable to determine For continuity of documentation, please document condition throughout progress notes and discharge summary. Thank You. CLINICAL INDICATORS - SIGNS / SYMPTOMS / LABS HP 12/21 "chest xray showed some patchy bilateral infiltrates consistent with possible viral PNA" HP 12/21 "sepsis is possibly due to UTI vs PNA" HP 12/21 "no cough, no hypoxia and no fever" Labs WBC: 12/21=13.1 12/26=19.1 12/30=21.1 Vital signs Respi: 01/02=24 01/03=24 01/01=24 RISK FACTORS ED Notes 12/21-84 years old female ED Notes 12/21-CKD ED Notes 12/21-DM ED Notes 12/21-HTN ED Notes 12/21-Obesity HP 12/21-Dementia HP 12/21-Sepsis HP 12/21-CHF HP 12/21-UTI PN 12/26-Acute respiratory failure ED Notes 12/21-SPARKLE ED Notes 12/21-GERD TREATMENTS Collected 12/28-Chest Xray PN 12/26-Admit to ICU PN 01/01-Ventilation MAR 12/21-Maxipime 2gm IV NOV 10-Vancomycin 1gm IV NOV 10-Levaquin 250mg IV NOV 10-IVF (This form is maintained as a part of the permanent medical record) 2014 [employer] All Rights Reserved [email or web address]
== END 2020-01-05 23:58 | disposition expired | DRG 870 ==
LOC: ERS 17:14 → 2SW 20:02 → CCU 12-26 12:03
PROVIDERS: ADMIT Emergency Medicine; ATTEND Family Medicine
PROC: 8E0ZXY6 Isolation (ICD-10-PCS; 2019-12-22)
PROC: 30233N1 Transfusion of Nonautologous Red Blood Cells into Peripheral Vein, Percutaneous Approach (ICD-10-PCS; 2019-12-22)
PROC: 06HY33Z Insertion of Infusion Device into Lower Vein, Percutaneous Approach (ICD-10-PCS; principal; 2019-12-26)
PROC: B54BZZA Ultrasonography of Right Lower Extremity Veins, Guidance (ICD-10-PCS; 2019-12-26)
PROC: 04HY32Z Insertion of Monitoring Device into Lower Artery, Percutaneous Approach (ICD-10-PCS; 2019-12-26)
PROC: 0BH17EZ Insertion of Endotracheal Airway into Trachea, Via Natural or Artificial Opening (ICD-10-PCS; 2019-12-26)
PROC: 5A1955Z Respiratory Ventilation, Greater than 96 Consecutive Hours (ICD-10-PCS; 2019-12-26)
PROC: 5A09357 Assistance with Respiratory Ventilation, Less than 24 Consecutive Hours, Continuous Positive Airway Pressure (ICD-10-PCS; 2019-12-26)
PROC: 3E033XZ Introduction of Vasopressor into Peripheral Vein, Percutaneous Approach (ICD-10-PCS; 2019-12-26)
DX: A41.59 Other Gram-negative sepsis (principal); I21.A1 Myocardial infarction type 2; R65.21 Severe sepsis with septic shock; J96.01 Acute respiratory failure with hypoxia; I50.33 Acute on chronic diastolic (congestive) heart failure; G93.41 Metabolic encephalopathy; Z68.41 Body mass index [BMI] 40.0-44.9, adult; N39.0 Urinary tract infection, site not specified; N17.9 Acute kidney failure, unspecified; N18.5 Chronic kidney disease, stage 5; I13.2 Hypertensive heart and chronic kidney disease with heart failure and with stage 5 chronic kidney disease, or end stage renal disease; E87.2 Acidosis; F03.91 Unspecified dementia, unspecified severity, with behavioral disturbance; Z66 Do not resuscitate; Z51.5 Encounter for palliative care; E11.22 Type 2 diabetes mellitus with diabetic chronic kidney disease; E78.5 Hyperlipidemia, unspecified; K21.9 Gastro-esophageal reflux disease without esophagitis; M10.9 Gout, unspecified; M19.90 Unspecified osteoarthritis, unspecified site; Z90.710 Acquired absence of both cervix and uterus; F32.9 Major depressive disorder, single episode, unspecified; E66.9 Obesity, unspecified; D63.1 Anemia in chronic kidney disease; D69.6 Thrombocytopenia, unspecified; Z20.828 Contact with and (suspected) exposure to other viral communicable diseases; E87.5 Hyperkalemia; B96.1 Klebsiella pneumoniae [K. pneumoniae] as the cause of diseases classified elsewhere; B96.89 Other specified bacterial agents as the cause of diseases classified elsewhere; E11.649 Type 2 diabetes mellitus with hypoglycemia without coma; E83.51 Hypocalcemia; R74.0 Nonspecific elevation of levels of transaminase and lactic acid dehydrogenase [LDH]; J32.0 Chronic maxillary sinusitis; Z86.73 Personal history of transient ischemic attack (TIA), and cerebral infarction without residual deficits; Z90.49 Acquired absence of other specified parts of digestive tract; Z79.84 Long term (current) use of oral hypoglycemic drugs; Z79.899 Other long term (current) drug therapy; Z78.1 Physical restraint status; R00.1 Bradycardia, unspecified
CPT/HCPCS: 36415; 36416; 36430; 51701; 70450; 71045; 80048; 80053; 80202; 81003; 81015; 82550; 82553; 82805; 83605; 83735; 84100; 84484; 85007; 85014; 85018; 85025; 85027; 85049; 86850; 86900; 86901; 87040; 87077; 87149; 87186; 87635; 92950; 93005; 94002; 94003; 94760; 96361; 96365; 96366; 96367; A4353; J0171; J0461; J0692; J1720; J1815; J1956; J2060; J2270; J3370; J3490; J7030; J7070; P9016; P9047; U0002